=== PATIENT | female | born 1935 | race Caucasian/White ===

== ENCOUNTER 2020-06-14 07:30 | Outpatient (REF) | payer MEDICARE, OTHER, SELFPAY ==
[2020-06-14 11:19] LABS: MANUAL DIFF FLAG NO
[2020-06-14 11:42] LABS: Basophils Absolute Auto 0.1 X10*3/uL (0.0-0.2); Basophils Percent Auto 0.9 % (0-2); Eosinophils Absolute Auto 0.2 X10*3/uL (0.0-0.4); Eosinophils Percent Auto 2.6 % (0-4); Hematocrit 39.3 % (37-47); Hemoglobin 12.9 g/dl (12.0-16.0); Imm Gran Abs Auto 0.03 X10*3/uL (0.00-0.03); Imm Gran Pct Auto 0.5 % (0.0-0.4); Lymphocytes Absolute Auto 2.4 X10*3/uL (1.2-4.9); Lymphocytes Percent Auto 36.3 % (20-40); Mean Corpuscular HGB Conc 32.8 g/dl (31.0-35.0); Mean Corpuscular Hemoglobin 29.6 pg (27.0-33.0); Mean Corpuscular Volume 90.1 fL (80-98); Mean Platelet Volume 11.2 fL (9.4-12.3); Monocytes Absolute Auto 0.5 X10*3/uL (0.1-1.2); Monocytes Percent Auto 8.2 % (2-11); Neutrophils Absolute Auto 3.3 X10*3/uL (2.0-8.3); Neutrophils Percent Auto 51.5 % (45-73); Platelet Count 196 X10*3/uL (160-400); Red Blood Count 4.36 X10*6/uL (4.20-5.50); Red Cell Distribution Width 12.8 % (11.0-16.0); White Blood Count 6.5 X10*3/uL (4.8-10.8)
[2020-06-14 12:13] LABS: Alanine Aminotransferase 30 U/L (0-31); Albumin Level 4.4 g/dL (3.5-5.0); Alkaline Phosphatase 84 U/L (39-117); Anion Gap 12 (12-20); Aspartate Amino Transferase 23 U/L (5-31); Bilirubin Total 1.6 mg/dL (0.0-1.0); Blood Urea Nitrogen 13 mg/dL (9-16); Calcium 9.3 mg/dL (8.4-10.2); Carbon Dioxide 32 mmol/L (22-29); Chloride 96 mmol/L (96-108); Cholesterol 159 mg/dL; Estimated Glomerular Filt Rate > 60; Glucose Fasting 115 mg/dL (60-99); HDL Cholesterol 85 mg/dL; LDL Cholesterol Calculated 59 mg/dl; Potassium 3.7 mmol/L (3.3-5.1); Sodium 136 mmol/L (135-145); Total Protein 6.6 g/dL (6.5-8.0); Triglycerides 75 mg/dL
[2020-06-14 12:35] LABS: Thyroid Stimulating Hormone 1.54 uIU/mL (0.32-4.0); Vitamin D 25-OH Total 28.6 ng/mL (>30)
== END 2020-06-14 07:31 | disposition home or self-care (01) ==
LOC: HO.HMGCLDS 07:30
PROVIDERS: Visit Provider Internal Medicine
DX: I10 Essential (primary) hypertension (principal); E03.9 Hypothyroidism, unspecified; E78.00 Pure hypercholesterolemia, unspecified; E55.9 Vitamin D deficiency, unspecified; K22.719 Barrett's esophagus with dysplasia, unspecified
CPT/HCPCS: 36415; 80053; 80061; 82306; 84443; 85025

== ENCOUNTER 2021-07-16 07:43 | Outpatient (REF) | payer MEDICARE, OTHER, SELFPAY ==
[2021-07-16 11:40] LABS: MANUAL DIFF FLAG NO
[2021-07-16 11:44] LABS: Basophils Absolute Auto 0.1 X10*3/uL (0.0-0.2); Basophils Percent Auto 0.9 % (0-2); Eosinophils Absolute Auto 0.2 X10*3/uL (0.0-0.4); Eosinophils Percent Auto 3.5 % (0-4); Hematocrit 38.9 % (37.0-47.0); Hemoglobin 12.9 g/dl (12.0-16.0); Imm Gran Abs Auto 0.03 X10*3/uL (0.00-0.03); Imm Gran Pct Auto 0.5 % (0.0-0.4); Lymphocytes Absolute Auto 2.6 X10*3/uL (1.2-4.9); Lymphocytes Percent Auto 38.9 % (20-40); Mean Corpuscular HGB Conc 33.2 g/dl (31.0-35.0); Mean Corpuscular Hemoglobin 29.3 pg (27.0-33.0); Mean Corpuscular Volume 88.4 fL (80.0-98.0); Mean Platelet Volume 11.1 fL (9.4-12.3); Monocytes Absolute Auto 0.6 X10*3/uL (0.1-1.2); Monocytes Percent Auto 9.1 % (2-11); Neutrophils Absolute Auto 3.1 x10*3/uL (2.0-8.3); Neutrophils Percent Auto 47.1 % (45-73); Platelet Count 200 X10*3/uL (160-400); Red Cell Distribution Width 12.7 % (11.0-16.0); White Blood Count 6.6 X10*3/uL (4.8-10.8)
[2021-07-16 12:29] LABS: Alanine Aminotransferase 22 U/L (0-31); Albumin Level 4.5 g/dL (3.5-5.0); Alkaline Phosphatase 80 U/L (39-117); Anion Gap 10 (12-20); Aspartate Amino Transferase 20 U/L (5-31); Bilirubin Total 2.3 mg/dL (0.0-1.0); Blood Urea Nitrogen 17 mg/dL (9-16); Carbon Dioxide 31 mmol/L (22-29); Chloride 97 mmol/L (96-108); Cholesterol 152 mg/dL; Estimated Glomerular Filt Rate > 60; Glucose Fasting 106 mg/dL (60-99); HDL Cholesterol 82 mg/dL; LDL Cholesterol Calculated 55 mg/dl; Sodium 134 mmol/L (135-145); Total Protein 6.8 g/dL (6.5-8.0); Triglycerides 79 mg/dL; Vitamin D 25-OH Total 33.2 ng/mL (>30)
[2021-07-16 13:54] LABS: Thyroid Stimulating Hormone 0.88 uIU/mL (0.32-4.0)
== END 2021-07-16 07:44 | disposition home or self-care (01) ==
LOC: HO.HMGCLDS 07:43
PROVIDERS: PCP Internal Medicine; Visit Provider Internal Medicine
DX: I10 Essential (primary) hypertension (principal); E78.00 Pure hypercholesterolemia, unspecified; E03.9 Hypothyroidism, unspecified; E55.9 Vitamin D deficiency, unspecified
CPT/HCPCS: 36415; 80053; 80061; 82306; 84443; 85025

== ENCOUNTER 2022-05-08 08:24 | Outpatient (REF) | payer MEDICARE, SELFPAY ==
[2022-05-08 11:24] LABS: MANUAL DIFF FLAG NO
[2022-05-08 11:40] LABS: Basophils Absolute Auto 0.1 X10*3/uL (0.0-0.2); Eosinophils Absolute Auto 0.1 X10*3/uL (0.0-0.4); Eosinophils Percent Auto 2.3 % (0-4); Hematocrit 40.1 % (37.0-47.0); Hemoglobin 13.5 g/dl (12.0-16.0); Imm Gran Abs Auto 0.01 X10*3/uL (0.00-0.03); Imm Gran Pct Auto 0.2 % (0.0-0.4); Lymphocytes Absolute Auto 2.1 X10*3/uL (1.2-4.9); Lymphocytes Percent Auto 33.5 % (20-40); Mean Corpuscular HGB Conc 33.7 g/dl (31.0-35.0); Mean Corpuscular Hemoglobin 29.4 pg (27.0-33.0); Mean Corpuscular Volume 87.4 fL (80.0-98.0); Mean Platelet Volume 10.8 fL (9.4-12.3); Monocytes Absolute Auto 0.6 X10*3/uL (0.1-1.2); Monocytes Percent Auto 9.6 % (2-11); Neutrophils Absolute Auto 3.3 x10*3/uL (2.0-8.3); Neutrophils Percent Auto 53.4 % (45-73); Platelet Count 207 X10*3/uL (160-400); Red Blood Count 4.59 X10*6/uL (4.20-5.50); Red Cell Distribution Width 12.7 % (11.0-16.0); White Blood Count 6.2 X10*3/uL (4.8-10.8)
[2022-05-08 12:23] LABS: Alanine Aminotransferase 23 U/L (0-31); Albumin Level 4.3 g/dL (3.5-5.0); Alkaline Phosphatase 84 U/L (39-117); Anion Gap 12 (12-20); Aspartate Amino Transferase 21 U/L (5-31); Bilirubin Total 2.3 mg/dL (0.0-1.0); Blood Urea Nitrogen 15 mg/dL (9-16); Calcium 9.5 mg/dL (8.4-10.2); Carbon Dioxide 30 mmol/L (22-29); Chloride 95 mmol/L (96-108); Cholesterol 158 mg/dL; Estimated Glomerular Filt Rate > 60; Glucose Fasting 116 mg/dL (60-99); HDL Cholesterol 81 mg/dL; LDL Cholesterol Calculated 63 mg/dl; Potassium 4.1 mmol/L (3.3-5.1); Sodium 133 mmol/L (135-145); Total Protein 6.5 g/dL (6.5-8.0); Triglycerides 70 mg/dL
[2022-05-08 12:28] LABS: Thyroid Stimulating Hormone 0.91 uIU/mL (0.32-4.0)
== END 2022-05-08 08:25 | disposition home or self-care (01) ==
LOC: HO.HMGCLDS 08:24
PROVIDERS: Visit Provider Internal Medicine
DX: K58.9 Irritable bowel syndrome, unspecified (principal); I10 Essential (primary) hypertension; E03.9 Hypothyroidism, unspecified; K22.719 Barrett's esophagus with dysplasia, unspecified; E78.00 Pure hypercholesterolemia, unspecified; E55.9 Vitamin D deficiency, unspecified; F41.9 Anxiety disorder, unspecified
CPT/HCPCS: 36415; 80053; 80061; 82306; 84443; 85025

== ENCOUNTER → 2022-09-02 14:45 | Outpatient (BNVA) | payer MEDICARE, SELFPAY | PROVIDERS: Visit Provider Internal Medicine Cardiovascular Disease | DX: R00.2 Palpitations (principal) | CPT/HCPCS: 93005; 99202 ==

== ENCOUNTER → 2022-09-29 09:46 | Outpatient (REF) | payer MEDICARE, SELFPAY ==
--- NOTE | 2022-09-29 09:50 | CA_ITS ---
Transthoracic Echocardiogram Patient (Last, First, Middle): Francy Shields A Gender: Female Date of : 1935 Age: 86 Procedure Date: 09/29/2022 Procedure Type: Transthoracic Echocardiogram Location: OP Height: 165.1 cm Weight: 68.04 kg BSA: 1.75 m2 Heart Rate: bpm BP: 130 / 76 mmHg Priming Mixture Carrier: SOM Referring MD: Lloyd Chacon MD Technical Lead: Lloyd Chacon MD Symptoms: R00.2 - Palpitations Study Quality: Adequate Conclusions: - Normal left ventricular size, thickness, systolic function, and wall motion. The visually estimated ejection fraction is between 65-70%. - E/E prime ratio is >15, consistent with elevated filling pressures. - Normal right ventricular cavity size and systolic function. - The left atrium is mildly dilated. The right atrium is normal in size. - Mild pulmonary hypertension is present. Findings Left Ventricle Normal left ventricular size, thickness, systolic function, and wall motion. The visually estimated ejection fraction is between 65-70%. Abnormal diastolic function is noted. Spectral Doppler is indicative of a pseudonormal filling pattern. E/E prime ratio is >15, consistent with elevated filling pressures. There is mild septal asymmetric hypertrophy. Right Ventricle Normal right ventricular cavity size and systolic function. Atria The left atrium is mildly dilated. The right atrium is normal in size. Aortic Valve Normal aortic valve structure and function. There is no aortic valve stenosis. There is no aortic valve regurgitation. Mitral Valve The mitral valve appears normal. There is trace mitral valve regurgitation. There is no mitral valve stenosis. Pulmonic Valve The pulmonic valve is likely normal. Tricuspid Valve Normal tricuspid valve structure. There is mild to moderate tricuspid valve regurgitation. The right ventricular systolic pressure is 44 mmHg. Normal right atrial pressure. Mild pulmonary hypertension is present. Great Vessels All visible segments of the aorta are normal in size. The visualized portions of the pulmonary artery and branches are normal. Venous The inferior vena cava is normal in size and collapses greater than 50% with inspiration. Pericardium/Pleural There is no evidence of pericardial effusion. Measurements 2D Linear Measurements IVSd: 0.88 0.6-0.9/0.6-1.0 cm LVIDd: 3.95 3.9-5.3/4.2-5.9 cm LVIDd Index: 2.26 2.4-3.2/2.2-3.1 cm/m2 LVIDs: 2.55 2.0-3.6 cm LVPWd: 0.92 0.7-1.1 cm LA Diam: 3.40 2.7-3.8/3.0-4.0 cm LAIDs Index: 1.94 1.5-2.3 cm/m2 LV Mass: 133.31 67-162/88-224 g LV Mass Index: 76.18 43-95/49-115 g/m2 LVOT Diam: 2.00 3.0+(-)1.3 cm 2D Systolic Function EF 4C: 69.90 >55% EF 2C: 67.70 >55% EF BiP: 68.20 >55% Mitral Valve MV Pk E: 1.04 MV PK A: 1.01 MV Decel Time: 207.00 E/A: 1.00 E'Lateral: 5.87 E'Medial: 5.66 E/E' Med: 18.40 E/E' Lat: 17.70 PHT: 61.00 MVA PHT: 3.61 Decel Newton: 5.03 Aortic Valve AoV Pk Cory: 1.36 AoV Mn Cory: 0.99 AoV VTI: 0.35 AoV Pk Grad: 7.00 Aov Mn Grad: 4.00 ROBERT Cont.VTI: 2.62 LVOT LVOT Pk Cory: 1.31 LVOT Mn Cory: 0.81 LVOT VTI: 0.29 LVOT Pk Grad: 7.00 LVOT Mn Grad: 3.00 LVOT Diam: 2.00 LVOT Area: 3.14 Diastolic Function MV Pk E: 1.04 MV Pk A: 1.01 E/A: 1.00 E'Medial: 5.66 E/E' Med: 18.40 E' Laterial: 5.87 E/E' Lat: 17.70 Right Ventricle TAPSE (mm): 18.30 TVS' Cory: 11.50 Tricuspid Valve TR Pk Cory: 3.22 TR Pk Grad: 41.00 RA Press: 3.00 RVSP: 44.00 Great Vessels Aorta Sinus of Valsalva: 3.51 2.0-3.[address] [place]: 2.22 1.7-3.4 cm Ao Asc: 3.10 2.1-3.4 cm Updated in Other Vendor System with Status of Final Lloyd Chacon MD electronically signed on 09/29/2022 9:59:13 PM with status of Final
--- NOTE | 2022-09-29 09:50 | HM_ITS ---
Cardiac event monitor Indication Palpitations Technique: Patient was hooked up to cardiac event monitor on 09/29/2022 for total period of 30 days. Compliance rate was only 25%, with total monitoring available only for 6.5 days. Findings: Baseline was normal sinus rhythm. No significant pauses noted. Rare supraventricular ectopy noted. Patient reported to events on the marker but without associated symptoms, correlating with sinus rhythm. Conclusion: 1. Baseline was normal sinus rhythm with no pauses with overall compliance rate on the low side 2. No significant arrhythmias detected 3. Patient reported to events correlated with sinus rhythm MTDD
== END ==
LOC: HO.CARD 09:46
PROVIDERS: Visit Provider Internal Medicine Cardiovascular Disease
DX: R00.2 Palpitations (principal)
CPT/HCPCS: 93270; 93306

== ENCOUNTER → 2022-09-29 09:50 | Outpatient (BNV) | payer MEDICARE, SELFPAY | PROVIDERS: Visit Provider Internal Medicine Cardiovascular Disease | DX: I47.1 Supraventricular tachycardia (principal) | CPT/HCPCS: 93272; 93306 ==

== ENCOUNTER 2022-12-03 11:21 | Outpatient (AMB) | payer MEDICARE, SELFPAY ==
--- NOTE | 2022-12-03 12:57 | AM.OFFWIN_ITS ---
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 Patient Tobacco Use Status: Never used Tobacco Allergies No Known Allergies [No Known Allergies*] Allergy (Verified 12/03/22 13:01) Do you need a note to return to daycare/school/sports/work: No HPI HPI Comments History of Present Illness Details 87-year-old with ear fullness and decrea sed hearing on the right side. Denies other symptoms [facility] Surgical History (Updated 09/02/22 @ 15:04 by CASSI Ortiz) History of colon resection History of hysterectomy History of modified radical mastectomy of left breast Family History (Updated 09/02/22 @ 15:04 by CASSI Ortiz) Mother No problems noted. Father No problems noted. Social History (Updated 09/02/22 @ 15:05 by CASSI Ortiz) Alcohol intake: current Alcohol intake frequency: a few times a month Alcohol type: wine Patient Tobacco Use Status: Never used Tobacco Review of Systems Const All systems reviewed & are unremarkable except as noted in HPI and below ENT Details: Right ear fullness Physical Exam Vital Signs: Last Vital Signs Pulse 64 12/03/22 12:59 BP 150/70 H 12/03/22 12:59 Pulse Ox 98 12/03/22 12:59 Oxygen Delivery Method Room Air 12/03/22 12:59 BMI result Body Mass Index 22.9 HEENT Other: Unable to visualize TM on the right side cerumen impaction. TM on the left visualized no tragal tenderness Assessment & Plan Assessment & Plan (1) Cerumen impaction: Code(s): H61.20 - Impacted cerumen, unspecified ear Qualifiers: Laterality: right Qualified Code(s): H61.21 - Impacted cerumen, right ear Plan: Signs and symptoms consistent cerumen impaction will flushed and reassess Reassessment patient with improvement in symptoms he hears re-evaluated shows TM intact. Discharge instructions, follow up and treatment are discussed with patient in my usual fashion. Alternatives in treatment are also discussed. The patient will return for worsening symptoms or as needed. Advised that any labs/imaging ordered will be followed up on and contact made if further treatment needed. Counseled that patient's condition may require further evaluation and/or treatment. Symptoms of concern for worsening disorder discussed in detail in my customary manner. Patient does verbalize understanding of the plan, there are no apparent barriers to communication. The patient is given the opportunity to ask questions and have them answered to his/her satisfaction Patient Instructions: You were seen an evaluated in the urgent care for your ear blockage. Your ears were flushed and wax was manually removed. You may experience fullness for the next 24-48 hours. You may trail an anti-histamine such as benadry, ceterizine (Zyrtec), or claritin. Over the counter ear drops can be purchased to help soften your ear wax. You should return to urgent care or the emergency department if you experience any new or worsening symptoms such as worsen pain, fever, hearing loss or any concerning symptoms not mentioned above. Coding Level of Care Code New Pt Level 4 (74442) Diagnoses Impacted cerumen of right ear H61.21 Laterality: right
[2022-12-03 12:59] VITALS: BP 150/70; PULSE 64; O2SAT 98; BMI 22.9
== END 2022-12-03 13:34 | disposition home or self-care (01) ==
PROVIDERS: Visit Provider Physician Assistant
DX: H61.21 Impacted cerumen, right ear (principal)
CPT/HCPCS: 99204

== ENCOUNTER 2022-12-09 10:14 | Outpatient (AMB) | payer MEDICARE, SELFPAY ==
[2022-12-09 10:16] VITALS: BP 160/82; PULSE 76; BMI 24.5
--- NOTE | 2022-12-09 10:16 | MHC.OFFVIS ---
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 She has been experiencing palpitations for few months but there were infrequent and happening 1 time a month. We will last for short period but recently she had an episode which was for approximately 5-6 hours. She felt her heart was racing and she was also feeling pulsations in her neck. She has no chest pain or shortness of breath. She has background of hypertension and hypothyroidism. Her blood pressure in the office is elevated but she is saying that her blood pressure at home is usually low. I have advised her to check her blood pressure and keep a log. Today she returns for follow-up. Again her blood pressure in the office is elevated. Her home readings are anywhere from 110 to 120s in the afternoon by her report. She is taking metoprolol succinate 100 mg daily and hydrochlorothiazide 50 mg daily. She is denying any palpitations. Cardiac event monitor did not show any significant arrhythmia. [facility] Surgical History History of colon resection History of hysterectomy History of modified radical mastectomy of left breast Family History Mother No problems noted. Father No problems noted. Social History Alcohol intake: current Alcohol intake frequency: a few times a month Alcohol type: wine Patient Tobacco Use Status: Never used Tobacco Review of Systems ENT Reports dizziness Card Denies chest pain, Denies chest pain at rest, Denies chest pain with activity, Denies rapid heart rate, Denies pedal edema, Denies edema, Denies leg edema, Denies lightheadedness, Denies palpitations, Denies dyspnea, Denies dyspnea on exertion and Denies orthopnea Resp Denies cough, Denies dyspnea and Denies dyspnea on exertion GI Denies hematochezia and Denies change in stool character Musc Denies abnormal gait, Reports limited range of motion, Reports muscle cramps, Denies muscle weakness, Denies numbness, Denies radiating pain into limb, Denies stiffness and Denies tingling Neuro Denies abnormal gait, Reports dizziness, Denies numbness and Denies tingling Endo Denies palpitations Physical Exam Vital Signs: Last Vital Signs Pulse 76 12/09/22 10:16 BP 160/82 H 12/09/22 10:16 BMI result Body Mass Index 24.5 GENERAL APPEARANCE: in no acute distress, pleasant. NECK: no carotid bruit, no jugular venous distention. SKIN: no suspicious lesions, warm and dry. HEART: no murmurs, regular rate and rhythm. LUNGS: clear to auscultation bilaterally. ABDOMEN: soft, nontender. EXTREMITIES: no edema. PERIPHERAL PULSES: equal. NEUROLOGIC: No gross deficits, AAO X 3 Assessment & Plan Assessment & Plan (1) Essential hypertension: Code(s): I10 - Essential (primary) hypertension (2) Palpitations: Code(s): R00.2 - Palpitations Plan 87-year-old female who is here for follow-up. She has background history of palpitations. She had cardiac event monitor which did not show any arrhythmia. Echocardiography has not shown any significant valvular disease or cardiomyopathy. Clinically she appears to be stable. Denying any chest pain or shortness of breath. Again blood pressure in the office elevated. She is saying that she has white coat syndrome. She was advised previously to keep a blood pressure log and call us. We have checked her blood pressure with our device and her home machine and the blood pressure readings are quite comparable. She is going to keep a log and call us in 1 week. If blood pressures more than 140s persistently I would recommend adding amlodipine 2.5 mg daily. Thank you for allowing me to participate in the care of your patient. Please feel free to contact me if you have any questions. Coding Level of Care Code Est Pt Level 3 (56392) Diagnoses Essential hypertension I10 Palpitations R00.2
== END 2022-12-09 10:41 | disposition home or self-care (01) ==
PROVIDERS: PCP Internal Medicine; Visit Provider Internal Medicine Cardiovascular Disease
DX: I10 Essential (primary) hypertension (principal); R00.2 Palpitations
CPT/HCPCS: 99213

== ENCOUNTER → 2022-12-09 10:14 | Outpatient (BNVA) | payer MEDICARE, SELFPAY | PROVIDERS: PCP Internal Medicine; Visit Provider Internal Medicine Cardiovascular Disease | DX: R00.2 Palpitations (principal); I10 Essential (primary) hypertension; E03.9 Hypothyroidism, unspecified | CPT/HCPCS: 99212 ==

== ENCOUNTER 2023-01-07 08:50 | Outpatient (REF) | payer MEDICARE, SELFPAY ==
[2023-01-07 11:37] LABS: Estimated Average Glucose 126 mg/dL
[2023-01-07 11:55] LABS: Appearance Urine Cloudy; Color Urine Dark Yellow; Glucose Urine UA Negative (Negative); Leukocyte Esterase Urine Large (3+) (Negative); Nitrite Urine Negative (Negative); PH 6.5 (5.0-9.0); UMIC TRIGGER UA YES; Urine Blood Small (1+) (Negative); Urine Ketones Negative (Negative); Urine Protein Negative (Neg-Trace)
[2023-01-07 12:10] LABS: Bacteria Urine Trace (None Seen); Hyaline Casts Urine 0-2 /LPF (0-2); WBC Urine 21-50 /HPF (0-5)
[2023-01-07 12:11] LABS: Alanine Aminotransferase 21 U/L (0-31); Albumin Level 4.2 g/dL (3.5-5.0); Alkaline Phosphatase 86 U/L (39-117); Anion Gap 9 (12-20); Aspartate Amino Transferase 21 U/L (5-31); Bilirubin Total 1.8 mg/dL (0.0-1.0); Blood Urea Nitrogen 12 mg/dL (9-16); Calcium 10.6 mg/dL (8.4-10.2); Carbon Dioxide 32 mmol/L (22-29); Chloride 98 mmol/L (96-108); Estimated Glomerular Filt Rate > 60; Glucose Fasting 120 mg/dL (60-99); Potassium 4.2 mmol/L (3.3-5.1); Sodium 135 mmol/L (135-145); Total Protein 6.9 g/dL (6.5-8.0)
[2023-01-07 12:32] LABS: Microalbum/Creatinine Ratio Ur 12.2 ug/mg cr (<30)
== END 2023-01-07 08:51 | disposition home or self-care (01) ==
LOC: HO.HMGCLDS 08:50
PROVIDERS: PCP Internal Medicine; Visit Provider Internal Medicine
DX: I10 Essential (primary) hypertension (principal); E03.9 Hypothyroidism, unspecified; K22.719 Barrett's esophagus with dysplasia, unspecified; E78.00 Pure hypercholesterolemia, unspecified; R73.09 Other abnormal glucose; E55.9 Vitamin D deficiency, unspecified; F41.9 Anxiety disorder, unspecified
CPT/HCPCS: 36415; 80053; 81001; 82043; 82570; 83036

== ENCOUNTER 2023-02-09 14:33 | Outpatient (AMB) | payer MEDICARE, SELFPAY ==
[2023-02-09 14:35] VITALS: BP 140/82; PULSE 67; BMI 24.3
--- NOTE | 2023-02-09 14:35 | MHC.OFFVIS ---
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 Today she reports she still gets heart palpitations at times. She will feel that her heart rate speeds up and can last for a few minutes before goes back to normal. She has no concerning symptoms along with this however it does cause her some concern. She has not had chest discomfort at rest or with activity. She denies having shortness of breath, presyncope, syncope, falls. No PND, orthopnea or edema. She takes her medications as directed. She reports good activity tolerance. [facility] Surgical History History of colon resection History of hysterectomy History of modified radical mastectomy of left breast Family History Mother No problems noted. Father No problems noted. Social History Alcohol intake: current Alcohol intake frequency: a few times a month Alcohol type: wine Patient Tobacco Use Status: Never used Tobacco Review of Systems Const All systems reviewed & are unremarkable except as noted in HPI and below ENT Denies dizziness Card Denies chest pain, Denies chest pain at rest, Denies chest pain with activity, Denies rapid heart rate, Denies pedal edema, Denies edema, Denies leg edema, Denies lightheadedness, Reports palpitations, Denies dyspnea, Denies dyspnea on exertion and Denies orthopnea Resp Denies cough, Denies dyspnea and Denies dyspnea on exertion GI Denies hematochezia and Denies change in stool character Musc Denies abnormal gait, Denies limited range of motion, Denies muscle cramps, Denies muscle weakness, Denies numbness, Denies radiating pain into limb, Denies stiffness and Denies tingling Neuro Denies abnormal gait, Denies dizziness, Denies numbness and Denies tingling Endo Reports palpitations Physical Exam Vital Signs: Last Vital Signs Pulse 67 02/09/23 14:35 BP 140/82 H 02/09/23 14:35 BMI result Body Mass Index 24.3 Const General: cooperative, healthy appearing, comfortable and no acute distress Orientation/consciousness: patient oriented x3 Neck Neck: Yes normal visual inspection Resp Effort & Inspection: normal respiratory effort Auscultation: clear to auscultation bilaterally, no rales, no rhonchi and no wheezes Cardio Jugular venous distension: no JVD Rate: regular rate Rhythm: regular rhythm Heart sounds: S1 normal heart sound present, S2 normal heart sound present, no murmurs and no rubs Neuro General: patient oriented x3 Extrem General: Yes normal to inspection Psych Appearance: grossly normal Mental Status: mental status grossly normal Speech and movement: Normal speech and movement present Assessment & Plan Assessment & Plan (1) Palpitations: Code(s): R00.2 - Palpitations Plan: Reports of heart palpitations which feels like her heart is going fast for a few minutes. No associated symptoms. Cardiac event monitor done on 09/2022 showing sinus rhythm with no significant arrhythmia, rare SVE noted, symptoms correlated with sinus rhythm. Echocardiogram done 09/29/2022 showed EF 65-70%, mild pulmonary hypertension. She continues to report some occasional heart palpitations. She says it occurs once or twice a month. Will have her continue to monitor symptoms and call this office if she has increasing amounts. Instructed to seek emergency care if she ever has any sustained rapid heart palpitations or episodes of lightheadedness, presyncope, syncope. Continue on current meds including metoprolol. Cardiology follow-up in 6 months, sooner if needed. Told her that if she is feeling well that she could cancel that appointment in be seen as needed. (2) Essential hypertension: Code(s): I10 - Essential (primary) hypertension Plan: Patient with history of hypertension. She also reports white coat syndrome. Home blood pressures reviewed and show good blood pressure control. She tells me she had had her cuff compared to office blood pressure in the past. Home readings currently 110-127 systolic over 60-70 diastolic. Office blood pressure today mildly elevated at 140/82. She is on hydrochlorothiazide and metoprolol. No med changes made at present Coding Level of Care Code Est Pt Level 3 (70471) Diagnoses Palpitations R00.2 Essential hypertension I10 Time Spent (min) 24
== END 2023-02-09 15:15 | disposition home or self-care (01) ==
PROVIDERS: PCP Internal Medicine; Visit Provider Nurse Practitioner Family
DX: R00.2 Palpitations (principal); I10 Essential (primary) hypertension
CPT/HCPCS: 99213

== ENCOUNTER → 2023-02-09 14:33 | Outpatient (BNVA) | payer MEDICARE, SELFPAY | PROVIDERS: PCP Internal Medicine; Visit Provider Nurse Practitioner Family | DX: R00.2 Palpitations (principal); I10 Essential (primary) hypertension | CPT/HCPCS: 99212 ==

== ENCOUNTER 2023-10-26 08:25 | Outpatient (REF) | payer MEDICARE, SELFPAY ==
[2023-10-26 09:55] LABS: MANUAL DIFF FLAG NO
[2023-10-26 10:08] LABS: Basophils Absolute Auto 0.1 X10*3/uL (0.0-0.2); Basophils Percent Auto 0.7 % (0-2); Eosinophils Absolute Auto 0.2 X10*3/uL (0.0-0.4); Hematocrit 41.4 % (37.0-47.0); Hemoglobin 14.1 g/dl (12.0-16.0); Imm Gran Abs Auto 0.01 X10*3/uL (0.00-0.03); Imm Gran Pct Auto 0.1 % (0.0-0.4); Lymphocytes Absolute Auto 2.8 X10*3/uL (1.2-4.9); Lymphocytes Percent Auto 37.4 % (20-40); Mean Corpuscular HGB Conc 34.1 g/dl (31.0-35.0); Mean Corpuscular Hemoglobin 29.7 pg (27.0-33.0); Mean Corpuscular Volume 87.3 fL (80.0-98.0); Mean Platelet Volume 11.1 fL (9.4-12.3); Monocytes Absolute Auto 0.6 X10*3/uL (0.1-1.2); Monocytes Percent Auto 8.3 % (2-11); Neutrophils Absolute Auto 3.8 x10*3/uL (2.0-8.3); Neutrophils Percent Auto 51.5 % (45-73); Platelet Count 213 X10*3/uL (160-400); Red Blood Count 4.74 X10*6/uL (4.20-5.50); White Blood Count 7.4 X10*3/uL (4.8-10.8)
[2023-10-26 10:38] LABS: Alanine Aminotransferase 24 U/L (0-31); Albumin Level 4.4 g/dL (3.5-5.0); Alkaline Phosphatase 97 U/L (39-117); Anion Gap 11 (12-20); Aspartate Amino Transferase 22 U/L (5-31); Bilirubin Total 1.9 mg/dL (0.0-1.0); Blood Urea Nitrogen 14 mg/dL (9-16); Calcium 10.8 mg/dL (8.4-10.2); Carbon Dioxide 31 mmol/L (22-29); Chloride 98 mmol/L (96-108); Cholesterol 155 mg/dL (<200); Estimated Glomerular Filt Rate > 60; Glucose Fasting 124 mg/dL (60-99); HDL Cholesterol 82 mg/dL (>40); LDL Cholesterol Calculated 57 mg/dL (<100); Potassium 4.2 mmol/L (3.3-5.1); Sodium 136 mmol/L (135-145); Total Protein 7.1 g/dL (6.5-8.0); Triglycerides 83 mg/dL (<150)
[2023-10-26 10:56] LABS: Thyroid Stimulating Hormone 0.96 uIU/mL (0.32-4.0); Vitamin D 25-OH Total 40.9 ng/mL (>30)
== END 2023-10-26 08:26 | disposition home or self-care (01) ==
LOC: HO.HMGCLDS 08:25
PROVIDERS: PCP Internal Medicine; Visit Provider Internal Medicine
DX: I10 Essential (primary) hypertension (principal); E03.9 Hypothyroidism, unspecified; K22.719 Barrett's esophagus with dysplasia, unspecified; E78.00 Pure hypercholesterolemia, unspecified; E55.9 Vitamin D deficiency, unspecified
CPT/HCPCS: 36415; 80053; 80061; 82306; 84443; 85025

== ENCOUNTER 2023-11-19 11:42 | Emergency (ER) | payer MEDICARE, SELFPAY ==
--- NOTE | ~2023-11-19 | XR_ITS ---
EXAMINATION: XR FEMUR, RIGHT CLINICAL INFORMATION: Posterior right thigh pain COMPARISON: None available. TECHNIQUE: AP and lateral views of the right femur were obtained. FINDINGS: BONES: Bony structures are intact. There is no focal bone destruction or periosteal reaction seen. JOINTS: Alignment of joints is normal. SOFT TISSUE: Soft tissue is normal. No radiopaque foreign body or abnormal air collection is seen. XR/XR femur RT 2V IMPRESSION: 1. Normal x-rays of right femur. No fracture or dislocation or signs of osteomyelitis are found. Electronically signed by: Aurora Cain MD 11/19/2023 02:26 PM EDT
--- NOTE | ~2023-11-19 | US_ITS ---
EXAMINATION: US TRIPLEX LOWER EXTREMITY, RIGHT CLINICAL INFORMATION: Right posterior thigh pain COMPARISON: None available. TECHNIQUE: Color-flow triplex imaging with spectral analysis and compression Doppler were performed on the right lower extremity. FINDINGS: Respiratory variation, normal compression and augmented flow are noted throughout the right lower extremity. The visualized common femoral vein, superficial femoral vein, profunda femoral vein, popliteal vein and midcalf peroneal and posterior tibial venous segments show no evidence of deep venous thrombosis. There is no Bautista's cyst. US/US venous duplex LE RT IMPRESSION: No evidence of deep venous thrombosis involving the right lower extremity. Electronically signed by: Phil Gee MD 11/19/2023 03:08 PM EDT RP
[2023-11-19 11:47] VITALS: BP 165/86; PULSE 73; O2SAT 98
[2023-11-19 11:56] VITALS: BP 175/79; PULSE 67; RESP 16; TEMP 36; O2SAT 98; BMI 25.7
[2023-11-19] MEDS: Cyclobenzaprine HCl 10 MG TABLET PO (12:56)
[2023-11-19] MEDS: Ketorolac Tromethamine 30 MG/ML VIAL IM (12:56)
--- NOTE | 2023-11-19 13:52 | ED_ITS ---
HPI - General Adult General Chief complaint: Extremity Injury, Lower Stated complaint: fell, R Leg pain rad from back sudden Time Seen by Provider: 11/19/23 12:37 Source: patient Mode of arrival: ambulatory Limitations: no limitations History of Present Illness ED Provider: Dhaval Mckeon PA-C HPI narrative: 88 yold female with pmh of HTN presents to the ED for right posterior thigh pain that occurred this morning. Patient states she was sitting down and when she got up she felt sudden pain in right posterior thigh hamstring area. Patient denies falling to the ground, hearing a pop or crack and right lower extremity. Patient states pain ever since. Patient denies any chest pain or shortness of breath. Related Data Home Medications ?Medication ?Instructions ?Recorded ?Confirmed atorvastatin 10 mg tablet 10 mg PO DAILY 09/02/22 02/09/23 hydrochlorothiazide 50 mg tablet 50 mg PO DAILY 09/02/22 02/09/23 levothyroxine 50 mcg tablet 50 mcg PO DAILY 09/02/22 02/09/23 metoprolol succinate 100 mg 100 mg PO DAILY 09/02/22 02/09/23 tablet,extended release 24 hr pantoprazole 40 mg tablet,delayed 40 mg PO DAILY 09/02/22 02/09/23 release Previous Rx's ?Medication ?Instructions ?Recorded naproxen 500 mg tablet 500 mg PO BID PRN pain 7 days #14 11/19/23 tabs oxycodone 5 mg capsule 5 mg PO Q8H PRN pain 3 days #9 caps 11/19/23 Allergies Allergy/AdvReac Type Severity Reaction Status Date / Time No Known Allergies Allergy Verified 11/19/23 11:59 [No Known Allergies*] Review of Systems 2 Review of Systems: Right posterior thigh pain Yes all other systems are reviewed and are negative [facility] Past Medical History Surgical History History of colon resection History of hysterectomy History of modified radical mastectomy of left breast Family History Family History Mother No problems noted. Father No problems noted. Social History Social History Alcohol intake: current Alcohol intake frequency: a few times a month Alcohol type: wine Patient Tobacco Use Status: Never used Tobacco Advance Directives: Yes Advance Directives Information Provided: Yes Advance Directives on File: No Physical Exam ED Vital Signs: Vital Signs - 24 hr 11/19/23 11:56 11/19/23 16:55 11/19/23 17:18 Temperature 96.8 F 97.8 F 97.8 F Pulse Rate 67 68 68 Respiratory Rate 16 16 16 Blood Pressure 175/79 H 145/60 H 145/60 H Pulse Oximetry 98 97 97 Oxygen Delivery Method Room Air Room Air Room Air BMI result Body Mass Index 25.7 Const General: cooperative, healthy appearing, comfortable, no acute distress, well developed, alert, awake and Physically active Orientation/consciousness: patient oriented x3 [facility] Head: Yes normal to inspection, Yes No palpable skull fracture present, Yes normocephalic and Yes atraumatic Eyes General: appearance normal, both eyes and all related structures Neck Neck: Yes normal visual inspection, Yes full ROM, Yes no lymphadenopathy, Yes no meningeal signs, Yes trachea midline, Yes supple, No anterior neck swelling and No tender Chest Chest palpation & inspection: normal inspection of the chest and normal palpation of entire chest wall Resp Effort & Inspection: normal respiratory effort and able to speak in complete sentences Auscultation: clear to auscultation bilaterally Cardio Jugular venous distension: no JVD Heart sounds: S1 normal heart sound present and S2 normal heart sound present GI Inspection: Yes normal to inspection Palpation (GI): Soft to palpation, not firm, nontender, no guarding and not rigid General: No CVA tenderness and Yes no CVA tenderness Back/Spine/Pelvis Back: no CVA tenderness, No CVA tenderness and No back tenderness Skin General skin exam: no rashes or lesions noted, elasticity normal and turgor normal Neuro General: patient oriented x3, gait normal, tone normal, moves all extremities, Normal light touch and pain sensation, no meningeal signs, no focal motor deficits, CN's II-XI intact bilaterally and normal sensation to monofilament Extrem General: Yes normal to inspection, Yes full ROM and Yes capillary refill normal Knee images: 2 1. Positive for tenderness on palpation. Negative for palpable mass, crepitus, deformity, erythema, hotness, coldness, or red streaks. Rest of extremity normal. Vascular neuro exam intact. Motor exam intact but with pain Psych Appearance: grossly normal, well kempt and not disheveled Medications Administered Discontinued Medications Generic Name Dose Route Start Last Admin Trade Name Nicky PRN Reason Stop Dose Admin Cyclobenzaprine HCl 10 mg 11/19/23 12:50 11/19/23 12:56 Cyclobenzaprine Hcl 10 Mg Tablet PO 11/19/23 12:51 10 mg ONCE ONE Administration Ketorolac Tromethamine 30 mg 11/19/23 12:50 11/19/23 12:56 Ketorolac Tromethamine 30 Mg/Ml Vial IM 11/19/23 12:51 30 mg ONCE ONE Administration Oxycodone HCl 5 mg 11/19/23 14:26 11/19/23 14:29 Oxycodone Hcl Immed Release 5 Mg Tablet PO 11/19/23 14:27 5 mg ONCE ONE Administration Medical Decision Making Medical Decision Making [facility] Narrative: 88-year-old female presents to ED for right posterior thigh pain after standing up suddenly and felt pain. Patient denies any popping or cracking sound. Her/pain on range of motion of right posterior thigh. Ultrasound x-ray ordered. Pain med given. 4:31pm: Patient pain resolved after oxycodone. X-ray negative for fracture. Ultrasound negative for DVT. Patient has no dip in posterior thigh and has complete range of motion of right lower extremity without any pain. Informed to follow up with primary care provider. Patient has appointment on Wednesday. Patient informed if pain return or consistent may need MRI for primary care provider. Not suspecting osteomyelitis, compartment syndrome, necrotizing fasciitis, arterial occlusion, DVT, or fracture. Patient and family explained worrisome signs informed to return to the ED immediately Differential Diagnosis Differential Diagnoses: The differential diagnosis associated with the presentation includes (Hamstring injury, DVT, fracture femur) Admission/Observation Consideration of admission/observation: Escalation of care including admission/observation considered Independent Interpretation I performed an independent interpretation of an: Plain X-Ray Radiology Impression Discussion of test interpretation with radiology: I have reviewed the radiologist's reading. Independent Historian Clinical information obtained from an independent historian. History obtained from or confirmed by: Other (Patient) External Record Review External record reviewed: Other (prior visit) Prescription Management I considered prescription management with: Pain Medication Discharge Plan Discharge Clinical Impression: Pain in right thigh Patient Disposition: Home, Self-Care Instructions: Leg Pain (ED) Additional Instructions: Recommend follow-up with primary care provider. If Pain is persistent or does not improve primary care provider she shoulder order MRI to evaluate for possible hamstring injury. Return to the ED for any swelling, redness, bluish black discoloration, numbness/tingling, fever, chills, severe pain, calf pain, chest pain, shortness of breath, coughing up blood, or any other concerning symptoms. US/US venous duplex LE RT IMPRESSION: No evidence of deep venous thrombosis involving the right lower extremity. Electronically signed by: Phil Gee MD 11/19/2023 03:08 PM EDT RP XR/XR femur RT 2V IMPRESSION: 1. Normal x-rays of right femur. No fracture or dislocation or signs of osteomyelitis are found. Electronically signed by: Aurora Cain MD 11/19/2023 02:26 PM EDT RP Prescriptions: New oxycodone 5 mg capsule 5 mg PO Q8H PRN (Reason: pain) 3 Days Qty: 9 0RF Rx Instructions: Partial Fill upon patient request. naproxen 500 mg tablet 500 mg PO BID PRN (Reason: pain) 7 Days Qty: 14 0RF No Action pantoprazole 40 mg tablet,delayed release (DR/EC) 40 mg PO DAILY levothyroxine 50 mcg tablet 50 mcg PO DAILY metoprolol succinate 100 mg tablet extended release 24 hr 100 mg PO DAILY atorvastatin 10 mg tablet 10 mg PO DAILY hydrochlorothiazide 50 mg tablet 50 mg PO DAILY Interventions: ED Discharge Assessment Last Done: 11/19/23 17:18 Discharge Date/Time: 11/19/23 17:19 Print Language: Lao
[2023-11-19] MEDS: oxyCODONE HCl Immed Release 5 MG TABLET PO (14:29)
[2023-11-19 16:55] VITALS: BP 145/60; PULSE 68; RESP 16; TEMP 36.6; O2SAT 97
--- NOTE | 2023-11-19 17:10 | PC.NURSE ---
Ambulatory trial pt gait was unsteady without any assistive devices, Second attempt with walker pt gait improved steady gait with support. Provider aware.
--- NOTE | 2023-11-19 17:17 | PC.NURSE ---
Ambulation trial Gait was unsteady, attempted second time with walker ambulation trial successful gait steady with device, provider aware, provider observed second ambulation trial as well.
[2023-11-19 17:18] VITALS: BP 145/60; PULSE 68; RESP 16; TEMP 36.6; O2SAT 97
--- NOTE | 2023-11-19 17:19 | PC.NURSE ---
PT left blue sweater in PVT 2 room. PT cell phone called voicemail left.
== END 2023-11-19 17:19 | disposition home or self-care (01) ==
PROVIDERS: Emergency Provider Emergency Medicine; PCP Internal Medicine
DX: M79.651 Pain in right thigh (principal); I10 Essential (primary) hypertension; Z79.02 Long term (current) use of antithrombotics/antiplatelets; Z79.899 Other long term (current) drug therapy
CPT/HCPCS: 73552; 93971; 96372; 99284; J1885

== ENCOUNTER 2023-11-22 11:38 | Outpatient (REF) | payer MEDICARE, SELFPAY ==
[2023-11-22 13:46] LABS: MANUAL DIFF FLAG NO
[2023-11-22 13:55] LABS: Basophils Percent Auto 0.5 % (0-2); Eosinophils Absolute Auto 0.1 X10*3/uL (0.0-0.4); Eosinophils Percent Auto 0.7 % (0-4); Hematocrit 40.1 % (37.0-47.0); Hemoglobin 13.9 g/dl (12.0-16.0); Imm Gran Abs Auto 0.04 X10*3/uL (0.00-0.03); Imm Gran Pct Auto 0.5 % (0.0-0.4); Lymphocytes Absolute Auto 1.3 X10*3/uL (1.2-4.9); Lymphocytes Percent Auto 17.4 % (20-40); Mean Corpuscular HGB Conc 34.7 g/dl (31.0-35.0); Mean Corpuscular Hemoglobin 29.4 pg (27.0-33.0); Mean Corpuscular Volume 84.8 fL (80.0-98.0); Mean Platelet Volume 11.3 fL (9.4-12.3); Monocytes Absolute Auto 0.7 X10*3/uL (0.1-1.2); Monocytes Percent Auto 9.1 % (2-11); Neutrophils Absolute Auto 5.4 x10*3/uL (2.0-8.3); Neutrophils Percent Auto 71.8 % (45-73); Platelet Count 206 X10*3/uL (160-400); Red Blood Count 4.73 X10*6/uL (4.20-5.50); Red Cell Distribution Width 12.4 % (11.0-16.0); White Blood Count 7.6 X10*3/uL (4.8-10.8)
[2023-11-22 14:23] LABS: Alanine Aminotransferase 23 U/L (0-31); Albumin Level 4.5 g/dL (3.5-5.0); Alkaline Phosphatase 96 U/L (39-117); Anion Gap 14 (12-20); Aspartate Amino Transferase 28 U/L (5-31); Bilirubin Total 2.9 mg/dL (0.0-1.0); Blood Urea Nitrogen 13 mg/dL (9-16); C Reactive Protein < 0.10 mg/dL (< or = 0.50); Calcium 10.7 mg/dL (8.4-10.2); Carbon Dioxide 30 mmol/L (22-29); Chloride 88 mmol/L (96-108); Estimated Glomerular Filt Rate > 60; Glucose Random 145 mg/dL (60-115); Potassium 4.1 mmol/L (3.3-5.1); Sodium 128 mmol/L (135-145); Total Protein 7.3 g/dL (6.5-8.0)
[2023-11-22 14:37] LABS: Erythrocyte Sedimentation Rate 7 MM/HR (0-20)
[2023-11-22 14:42] LABS: Thyroid Stimulating Hormone 0.71 uIU/mL (0.32-4.0)
[2023-11-22 14:58] LABS: Parathyroid Hormone Intact 103.9 pg/mL (8.7-77.1)
== END 2023-11-22 11:39 | disposition home or self-care (01) ==
LOC: HO.HMGCLDS 11:38
PROVIDERS: PCP Internal Medicine; Visit Provider Internal Medicine
DX: I10 Essential (primary) hypertension (principal); E03.9 Hypothyroidism, unspecified; K22.719 Barrett's esophagus with dysplasia, unspecified; E83.52 Hypercalcemia
CPT/HCPCS: 36415; 80053; 83970; 84443; 85025; 85652; 86140

== ENCOUNTER 2023-12-03 10:47 | Outpatient (REF) | payer MEDICARE, SELFPAY ==
[2023-12-03 13:52] LABS: Alanine Aminotransferase 22 U/L (0-31); Albumin Level 4.4 g/dL (3.5-5.0); Alkaline Phosphatase 92 U/L (39-117); Anion Gap 12 (12-20); Aspartate Amino Transferase 22 U/L (5-31); Bilirubin Total 1.7 mg/dL (0.0-1.0); Blood Urea Nitrogen 14 mg/dL (9-16); Calcium 10.6 mg/dL (8.4-10.2); Carbon Dioxide 27 mmol/L (22-29); Chloride 102 mmol/L (96-108); Estimated Glomerular Filt Rate > 60; Glucose Random 128 mg/dL (60-115); Potassium 4.2 mmol/L (3.3-5.1); Sodium 137 mmol/L (135-145); Total Protein 7.2 g/dL (6.5-8.0)
[2023-12-03 14:17] LABS: Parathyroid Hormone Intact 107.4 pg/mL (8.7-77.1)
== END 2023-12-03 10:48 | disposition home or self-care (01) ==
LOC: HO.HMGCLDS 10:47
PROVIDERS: PCP Internal Medicine; Visit Provider Internal Medicine
DX: E87.1 Hypo-osmolality and hyponatremia (principal); E21.3 Hyperparathyroidism, unspecified; I10 Essential (primary) hypertension
CPT/HCPCS: 36415; 80053; 83970

== ENCOUNTER 2023-12-17 10:33 | Outpatient (AMB) | payer MEDICARE, SELFPAY ==
--- NOTE | 2023-12-17 10:42 | MHC.OFFVIS ---
Intake Visit Reasons: [employer]OPER- Sciatica of RT leg Intake Note: Francy is a 88 year old female who presents today as a new patient referred by Abdelrahman Muhammad DO for sciatica. Pt states this started 11/19/23 without any known injury. Pt states she went to an exercise class and isn't sure if that is what caused this pain. Pt states she has pain that starts in her back and goes down her right leg. Pt states the pain has gotten better but she states she still has numbness and tingling in her right foot. Pt denies any previous surgeries or injections in her legs or back. Allergies No Known Allergies [No Known Allergies*] Allergy (Verified 12/17/23 10:42) HPI Comments Details: No previous back issues. No history of disc herniations. History of osteoarthritis hands. Diagnosed in the past with RA, treated by Dr. Benito, but has been off medications, told not to need them anymore, for more than a year. Been active prior to onset. [facility]ed the [facility]balance [facility] There was a back stretch to reach the floor. Davis a twinge but continued. The next day, got up from seated position, could not stand or walk after. If she sat a certain way, it was not too bad. Went to ED. Evaluation was mainly from for right thigh/leg pain. Work up was negative for fracture and DVT. Prescribed medications but didn't use them. Says she didn't have pain but more of numbness, from ankle lateral to lateral foot, 3rd-5th. Back is now improved. She describes it as discomfort on right ankle, throwing her balance off. Gait is affected. Still try to do stairs. [facility] Surgical History History of colon resection History of hysterectomy History of modified radical mastectomy of left breast Family History Mother No problems noted. Father No problems noted. Social History Alcohol intake: current Alcohol intake frequency: a few times a month Alcohol type: wine Patient Tobacco Use Status: Never used Tobacco Review of Systems Const All systems reviewed & are unremarkable except as noted in HPI and below Physical Exam Constitutional: Patient appears to be in no acute distress, well nourished and well developed. Patient was appropriately conversant and oriented. Good historian. MSK: No specific abnormalities found on inspection of the spine and all extremities. No pain with palpation over the lumbar area. No tenderness on SI or GT. No calf tenderness. Lumbar ROM was full. Bilateral hip, knee and ankle ROM WNL. No ligamentous laxity or crepitance. No increased effusion. Slump sit positive right. FABERE test positive right. Neurological: Give-way weakness in right knee extension and hip flexion due to pain. No footdrop. No hyperreflexia. Pederson?s negative bilaterally. Babinski was down going bilaterally. Clonus was negative. Gait is antalgic without loss of balance. Results Reviewed Results Reviewed: I independently reviewed the results of the following: Femur x-ray done at the ER reviewed, question decreased joint space hip and knee, but was not on the official reading. I reviewed records from the following: ER Assessment & Plan Assessment & Plan (1) Right lumbar radiculitis: Code(s): M54.16 - Radiculopathy, lumbar region Category: Medical (2) Neurogenic claudication: Code(s): R29.818 - Other symptoms and signs involving the nervous system Category: Medical Plan Active 88 year old with acute onset right sided leg pain/paresthesia. Concern for lumbar disc herniation. It has affected her gait, strength and functionality. Referring to PT: work on gait and strength on RLE. Does not need a lot of sessions, but need guidance of what is safe to do at home. We also talked about what she can and can not do at home. Send her for lumbar x-rays today. At the time of writing this note, images reviewed, anterior endplates, disc space narrowing, anterior listhesis L2-3? Do not see any compression fracture. Await official reading. I think ultimately we need further imaging of lumbar spine. Despite being 88-year-old, she was fully active and cares for her older . We do need answers and prognosis. Lumbar MRI ordered. Assessment and plan discussed with patient, and patient was agreeable. All questions were answered thoroughly. Follow up after PT and MRI. Veronica Rios MD, DARRELL Board Certified, [place] [employer] and Rehabilitation (ABPMR) Board Certified, [place] Board [employer] Electrodiagnostic Medicine (ABEM) Orders: Orders XR lumbar spine 2-3V Today M54.16 - Radiculopathy, lumbar region, M54.9 - Dorsalgia, unspecified MR lumbar spine wo con Today M51.16 - Intervertebral disc disorders with radiculopathy, lumbar region, M54.16 - Radiculopathy, lumbar region, R29.818 - Other symptoms and signs involving the nervous system PT Evaluation and Treatment Today M54.16 - Radiculopathy, lumbar region Coding Level of Care Code New Pt Level 4 (29649) Diagnoses Right lumbar radiculitis M54.16 Neurogenic claudication R29.818
== END 2023-12-17 11:52 | disposition home or self-care (01) ==
PROVIDERS: PCP Internal Medicine; Visit Provider Physical Medicine & Rehabilitation
DX: M54.16 Radiculopathy, lumbar region (principal); R29.818 Other symptoms and signs involving the nervous system
CPT/HCPCS: 99203

== ENCOUNTER 2023-12-17 10:33 | Outpatient (REF) | payer MEDICARE, SELFPAY ==
--- NOTE | ~2023-12-17 | XR_ITS ---
EXAMINATION: XR LUMBOSACRAL SPINE 3 VIEWS CLINICAL INFORMATION: Dorsalgia, unspecified M54.9. COMPARISON: CT Abdomen pelvis with contrast 07/21/2018 TECHNIQUE: Three views of the lumbosacral spine. FINDINGS: There is a dextroscoliosis of the lower thoracic and upper lumbar spine. There is mild superior endplate irregularity and underlying degenerative disc disease at L1 and L2. No acute fractures are seen. Diffuse degenerative disc disease seen throughout the lower thoracic and lumbar spine. There is a grade 1 retrolisthesis of L2 on L3 and L3 on L4 due to the degenerative changes. Posterior facet joint arthropathy is seen from L3 through S1. XR/XR lumbar spine 2-3V IMPRESSION: 1. Dextroscoliosis of the lower thoracic and upper lumbar spine. 2. Diffuse degenerative disc disease and posterior facet joint arthropathy as described above. Electronically signed by: Jason Fleming MD 02/22/2024 11:07 AM [facility]
== END 2023-12-17 10:34 | disposition home or self-care (01) ==
LOC: HO.HOSX 10:33
PROVIDERS: PCP Internal Medicine; Visit Provider Physical Medicine & Rehabilitation
DX: M51.16 Intervertebral disc disorders with radiculopathy, lumbar region (principal); R29.818 Other symptoms and signs involving the nervous system
CPT/HCPCS: 72100; 99202

== ENCOUNTER → 2024-01-02 10:14 | Outpatient (BNV) | payer MEDICARE, SELFPAY | PROVIDERS: PCP Internal Medicine; Visit Provider Radiology Diagnostic Radiology | DX: M51.16 Intervertebral disc disorders with radiculopathy, lumbar region (principal) | CPT/HCPCS: 72148 ==

== ENCOUNTER 2024-01-02 10:31 | Outpatient (REF) | payer MEDICARE, SELFPAY | END 2024-01-02 10:32 | disposition home or self-care (01) | LOC: HO.MRI 10:31 | PROVIDERS: PCP Internal Medicine; Visit Provider Physical Medicine & Rehabilitation | DX: M51.16 Intervertebral disc disorders with radiculopathy, lumbar region (principal); R29.818 Other symptoms and signs involving the nervous system | CPT/HCPCS: 72148 ==

== ENCOUNTER 2024-01-06 12:00 | Outpatient (AMB) | payer MEDICARE, SELFPAY ==
--- NOTE | 2024-01-06 13:00 | AM.OFFWIN_ITS ---
Intake Vital Signs 01/06/24 13:04 Weight 145 lb BP 120/80 Blood Pressure Location Rt brachial Position Sitting Pulse 75 Pulse Source Pulse Oximeter Pulse Oximetry (%) 98 Oxygen Delivery Method Room Air Intake Visit Reasons: EP trouble hearing both ears,clogged Intake Note: Patient here for trouble hearing, she states the left ear is the worst one. Patient Tobacco Use Status: Never used Tobacco Allergies No Known Allergies [No Known Allergies*] Allergy (Verified 01/06/24 13:03) Do you need a note to return to daycare/school/sports/work: No HPI HPI Comments History of Present Illness Details This is an 88-year-old female presenting for evaluation of decreased hearing that has been ongoing over the past 10 days. Patient states she has been using [id number] ear drops bilaterally and feels that the right ear is now improved. Patient denies having any fevers, chills, otalgia, pharyngitis and does not utilize hearing aids in either ear. [facility] Surgical History History of colon resection History of hysterectomy History of modified radical mastectomy of left breast Family History Mother No problems noted. Father No problems noted. Social History Alcohol intake: current Alcohol intake frequency: a few times a month Alcohol type: wine Patient Tobacco Use Status: Never used Tobacco Review of Systems Const All systems reviewed & are unremarkable except as noted in HPI and below Reports no additional complaints Eyes Reports no additional complaints ENT Denies Normal hearing present and Reports otalgia Card Reports no additional complaints Resp Reports no additional complaints GI Reports no additional complaints Reports no additional complaints Musc Reports no additional complaints Neuro Denies Normal hearing present Psych Reports no additional complaints Physical Exam Vital Signs: Last Vital Signs Pulse 75 01/06/24 13:04 BP 120/80 01/06/24 13:04 Pulse Ox 98 01/06/24 13:04 Oxygen Delivery Method Room Air 01/06/24 13:04 Const General: cooperative, healthy appearing, comfortable and no acute distress Nutritional Appearance: average body habitus Orientation/consciousness: patient oriented x3 Limitations: no limitations and ambulation with cane HEENT Head: Yes normocephalic Ears: hearing grossly normal bilaterally, external ears normal, TM normal on the right and unable to visualize TM (Cerumen impaction) on the left General nose exam: Normal external nose present Mouth: Normal oral and palatal mucosa present and oropharynx normal Throat: Yes posterior oropharynx normal Neuro General: patient oriented x3 Cranial nerves: No Normal hearing present Psych Appearance: grossly normal Mental Status: mental status grossly normal Insight: Good insight present (Psych) Judgement: Good judgement present (Psych) Office Procedures Cerumen Removal From which ear canal was the cerumen removed: left Removal: irrigation and otoscope w/curette Notes: patient tolerated procedure well, no complications and ear canal clear [id number] Wax Removal by Spoon/Curette Assessment & Plan Assessment & Plan (1) Impacted cerumen of left ear: Comment: Cerumen removed; canal clear. Code(s): H61.22 - Impacted cerumen, left ear Plan: No follow-up required at this time. Patient advised to avoid Q.tips while canal is moist. Coding Level of Care Code Est Pt Level 3 (59223) Diagnoses Impacted cerumen of left ear H61.22 CPT Codes Office Procedure - CPT: 74907-Kkm Wax Removal by Spoon/Curette ([id number]) Time Spent (min) 20
[2024-01-06 13:04] VITALS: BP 120/80; PULSE 75; O2SAT 98
== END 2024-01-06 14:38 | disposition home or self-care (01) ==
PROVIDERS: PCP Internal Medicine; Visit Provider Physician Assistant
DX: H61.22 Impacted cerumen, left ear (principal)

== ENCOUNTER → 2024-01-06 12:00 | Outpatient (BNVA) | payer MEDICARE, SELFPAY | PROVIDERS: PCP Internal Medicine; Visit Provider Physician Assistant | DX: H61.22 Impacted cerumen, left ear (principal) | CPT/HCPCS: 69210; 99212 ==

== ENCOUNTER 2024-01-20 11:00 | Outpatient (RCR) | payer MEDICARE, SELFPAY ==
--- NOTE | 2023-12-31 11:34 | MHC.PT.EP ---
[facility] [place] [facility] [place] Office [place] Office [address] Jhonathan Moya [address] [phone] F: [phone] F: [phone] F: [phone] F: [phone] Physical Therapy Plan of Care Date of Evaluation: 12/31/23 Date of Surgery: Diagnosis: This is an 88 yo female presenting to skilled PT with a script for radiculopathy, lumbar region. Assessment: This is an 88 yo female presenting to skilled PT with a script for radiculopathy, lumbar region. Pt states this started 11/19/23 without any known injury, however she does state she went to an exercise class (bones and balance at [facility]) and this may have caused her pain. In the class she performed a back stretch where she bent forward to reach the floor and this is when she felt a twinge. By the end of the week, she got up from seated position and could not stand or walk after. She ended up going to the ED, however it appears her back was not evaluated, only her leg. Her work up was negative for fracture and DVT and she was prescribed medications but did not use them. Since then her symptoms are improved however she has does not endure much pain, more of numbness and buzzing . The symptoms run now posterior lower leg, Achilles, lateral ankle and into the 3 lateral toes. She feels like her symptoms are throwing her balance off and her gait is affected (came in with a straight cane but does not normally use this). Assessment reveals pain that ranges from up to a 3/10 at the worst. Patient demos decreased lumbar and RLE ROM, strength of core, back and gluts, impaired posture with forward head and rounded shoulders, scolosis noted with forward flexion and with visual assessment, decreased gait and balance. Based on functional limitations, impaired QOL and pain tolerance patient is a good candidate for skilled PT 2x/wk for 4wks. Frequency and Duration: The patient will be seen 2x/wk for 4wks Short Term Goals: Pt will demonstrate improved postural awareness and understanding of core engagement with supine and standing tasks without cues throughout session to improve overall back safety in 2 weeks. Pt will demonstrate centralization of sx in 2 weeks. Pt will continue to reinforce precautions, sitting, standing and ADL modifications with proper body mechanics in 2 wks. Snf Goals: Pt will demonstrate improved outcome measure by 5 points in 4 weeks for improved functional mobility. Pt will demonstrate ability to bend and lift WNL min to no pain for household tasks in 4 wks. Pt will be I in HEP and compliant in 4wks Treatment Plan: Modalities to reduce pain, spasms and effusion. Manual therapy to restore motion and function. Therapeutic exercise to improve strength and flexibility. Neuromuscular re-education for posture and balance. Therapeutic activities to return to functional activities of daily living. Electronically signed by: Eliza Botello PT Please sign and return to therapist. Thank you for your referral.
--- NOTE | 2024-01-20 14:14 | MHC.PT.PR ---
[facility] [place] Office [place] Office [place] Office [address] Jhonathan Moya [address] [phone] F: [phone] F: [phone] F: [phone] F: [phone] Physical Therapy Progress Note Diagnosis: This is an 88 yo female presenting to skilled PT with a script for radiculopathy, lumbar region. Date of Surgery: Date of Evaluation: 12/31/23 Treatments to Date: 6 Cancellations to Date: 0 No Shows to Date: 0 Subjective: Patient is the same Pain Score and Location: 3 R LE Objective Measures: See EI Assessment: 01/19: Patient has come to 6 PT appointments, I am putting her on a PT hold until she sees the MD as she has been plateauing in progress if not getting a little worse. She reports weakness and instability in her leg and increasing back pain. I educated her on a nonpainful HEP to continue while she waits to see the MD. We have trialed MH/ice, TrP, manual STM, manual stretching, ther-ex for core and back strengthening. She would benefit from follow up with referring MD. PT Plan: Hold PT Frequency and Duration: The patient will be seen 2x/wk for 4wks Treatment Plan: Therapeutic Exercise Dynamic Therapeutic Activities Neuromuscular Re-ed Manual Therapies Taping Gait Home Exercise Program Patient Education Hot or Cold Pack Reviewed/ Agreed with Student Documentation: Therapist: Thank you once again for your referral.
--- NOTE | 2024-02-21 09:30 | MHC.PT.DC ---
[facility] [place] Office [place] Office [place] Office [address] Jhonathan Moya [address] [phone] F: [phone] F: [phone] F: [phone] F: [phone] Physical Therapy Discharge Report Diagnosis: This is an 88 yo female presenting to skilled PT with a script for radiculopathy, lumbar region. Date of Surgery: Date of Evaluation: 12/31/23 Date of Discharge: 02/21/24 Treatments to Date: 6 Cancellations to Date: 0 No Shows to Date: 0 Discharge Status: Recommend MD Follow-up Discharge Summary: Patient has come to 6 PT appointments, I am putting her on a PT hold until she sees the MD as she has been plateauing in progress if not getting a little worse. She reports weakness and instability in her leg and increasing back pain. I educated her on a nonpainful HEP to continue while she waits to see the MD. We have trialed MH/ice, TrP, manual STM, manual stretching, ther-ex for core and back strengthening. She is awaiting MRI results. She would benefit from follow up with referring MD. I DC'd her chart after 30 days of not being at the facility. Electronically signed by: Eliza Botello, PT Please sign and return to therapist. Thank you for your referral.
== END 2024-02-21 09:30 | disposition home or self-care (01) ==
LOC: HO.PTCHIC 11:00
PROVIDERS: PCP Internal Medicine; Visit Provider Physical Medicine & Rehabilitation
DX: M54.16 Radiculopathy, lumbar region (principal)
CPT/HCPCS: 97110; 97140; 97162

== ENCOUNTER 2024-03-28 10:02 | Outpatient (AMB) | payer MEDICARE, SELFPAY ==
--- NOTE | 2024-03-28 10:05 | MHC.PC.OV ---
Vital Signs 03/28/24 10:12 Height 5 ft 4.25 in Weight 147 lb BMI 25.0 BP 144/80 H Blood Pressure Location Rt brachial Position Sitting Pulse 77 Temp 97.2 F Pulse Oximetry (%) 98 Intake Visit Reasons: 3 month follow up Intake Note: Pt states 3 month follow up. Concerns regarding current medication. Bilateral ankel edema in the evening. Pharmacy Teacher Required: No Allergies No Known Allergies [No Known Allergies*] Allergy (Verified 03/28/24 11:14) Medication List - Last Reconciled 03/28/24 by Radha Johnson PA-C amlodipine 2.5 mg PO DAILY 90 days atorvastatin 10 mg PO DAILY 90 days levothyroxine 50 mcg PO DAILY 90 days metoprolol succinate ER 100 mg PO DAILY 90 days pantoprazole 40 mg PO DAILY 90 days [facility] Medical History (Updated 03/28/24 @ 11:19 by Radha Johnson PA-C) Breast cancer Surgical History History of colon resection History of hysterectomy History of modified radical mastectomy of left breast Family History Mother No problems noted. Father No problems noted. Social History Alcohol intake: current Alcohol intake frequency: a few times a month Alcohol type: wine Patient Tobacco Use Status: Never used Tobacco Physical exam (Primary Care) Vital Signs: Last Vital Signs Temp 97.2 F 03/28/24 10:12 Pulse 77 03/28/24 10:12 BP 144/80 H 03/28/24 10:12 Pulse Ox 98 03/28/24 10:12 Care Plan Goal for BP management: 144/80 BP today patient just had medication changes at her last visit. Will reassess in 6 months if continues to be elevated patient will have increased her blood pressure medication. BMI result Body Mass Index 25.0 BMI Assessment/Plan discussion: High BMI High, discussed plan: lifestyle, weight reduction, dietary, physical activity and alcohol moderation Tobacco/Smoking Status: Tobacco use Status Patient Tobacco Use Status Never used Tobacco 03/28/24 10:10 Coding Level of Care Code New Pt Level 4 (42810) Complex EM visit Add On G2211 Diagnoses Follow-up exam, 3-6 months since previous exam Z09 Essential hypertension I10 Elevated parathyroid hormone related peptide level R79.89 Hypothyroidism E03.9 Mild hypercholesterolemia E78.00 GERD (gastroesophageal reflux disease) K21.9 Barretts esophagus K22.70 Gastritis K29.70 Arthritis M19.90 Uterine fibroid D25.9 Endometriosis N80.9 Breast cancer C50.919 Melanoma C43.9 Irritable bowel syndrome with diarrhea K58.0 Overweight (BMI 25.0-29.9) E66.3 Assessment & Plan Assessment & Plan (1) Follow-up exam, 3-6 months since previous exam: Code(s): Z09 - Encounter for follow-up examination after completed treatment for conditions other than malignant neoplasm Category: Medical (2) Essential hypertension: Code(s): I10 - Essential (primary) hypertension Category: Medical Plan: Blood pressure 144/80 although patient is currently on amlodipine with recently a decreased dose to 2.5 and she is currently on metoprolol. Will reassess at next visit for goal of 130/80. Condition is chronic and stable will continue to monitor. (3) Elevated parathyroid hormone related peptide level: Code(s): R79.89 - Other specified abnormal findings of blood chemistry Category: Medical Plan: Patient had an elevated parathyroid hormone level of 107.4 on 11/22/2023. Will refer to endocrinology. Condition is chronic and stable will continue to monitor. (4) Hypothyroidism: Code(s): E03.9 - Hypothyroidism, unspecified Category: Medical Plan: Patient has a history of thyroid disease currently on levothyroxine taking as prescribed. Had a normal TSH level on 11/22/2023. Will refer to endocrinology. Condition is chronic and stable. (5) Mild hypercholesterolemia: Code(s): E78.00 - Pure hypercholesterolemia, unspecified Category: Medical Plan: Patient currently on atorvastatin. Condition is chronic and stable will continue to monitor. (6) GERD (gastroesophageal reflux disease): Code(s): K21.9 - Gastro-esophageal reflux disease without esophagitis Category: Medical Plan: Patient currently on PPI. Will refill today. Condition is chronic and stable continue to monitor. (7) Barretts esophagus: Code(s): K22.70 - Peralta's esophagus without dysplasia Category: Medical Plan: Condition chronic and stable continue to monitor. (8) Gastritis: Code(s): K29.70 - Gastritis, unspecified, without bleeding Category: Medical Plan: Condition chronic and stable continue to monitor. (9) Arthritis: Code(s): M19.90 - Unspecified osteoarthritis, unspecified site Category: Medical Plan: Condition chronic and stable continue to monitor. (10) Uterine fibroid: Code(s): D25.9 - Leiomyoma of uterus, unspecified Category: Medical Plan: Condition chronic and stable continue to monitor. (11) Endometriosis: Code(s): N80.9 - Endometriosis, unspecified Category: Medical Plan: Condition chronic and stable continue to monitor. (12) Breast cancer: Comment: Status post left radical mastectomy at the age of 17 Code(s): C50.919 - Malignant neoplasm of unspecified site of unspecified female breast Category: Medical Plan: History of ongoing mammograms. She reports last mammogram was last year. Will continue to monitor. (13) Melanoma: Code(s): C43.9 - Malignant melanoma of skin, unspecified Category: Medical Plan: Condition is chronic and stable will continue to monitor. (14) Irritable bowel syndrome with diarrhea: Code(s): K58.0 - Irritable bowel syndrome with diarrhea Category: Medical Plan: Condition chronic and stable continue to monitor. (15) Overweight (BMI 25.0-29.9): Code(s): E66.3 - Overweight Category: Medical Plan: Patient to improve diet and exercise. Condition is chronic and stable will continue to monitor Plan Plan - Continue monitoring thyroid function and renew levothyroxine prescription. - Continue all other medications as previously prescribed. - Order comprehensive blood work, including fasting glucose, electrolytes, and calcium/PTH levels, for assessment before next appointment. - Refer to an casting machine adjuster for further evaluation of persistent hypercalcemia and parathyroid hormone elevation. Orders: Orders Comprehensive Pearson. Panel Fast Today I10 - Essential (primary) hypertension, R79.89 - Other specified abnormal findings of blood chemistry, Z09 - Encounter for follow-up examination after completed treatment for conditions other than malignant neoplasm Lipid Panel Today C43.9 - Malignant melanoma of skin, unspecified, C50.919 - Malignant neoplasm of unspecified site of unspecified female breast, D25.9 - Leiomyoma of uterus, unspecified, E03.9 - Hypothyroidism, unspecified, E78.00 - Pure hypercholesterolemia, unspecified, K21.9 - Gastro-esophageal reflux disease without esophagitis, K22.70 - Peralta's esophagus without dysplasia, K29.70 - Gastritis, unspecified, without bleeding, K58.0 - Irritable bowel syndrome with diarrhea, M19.90 - Unspecified osteoarthritis, unspecified site, N80.9 - Endometriosis, unspecified, R79.89 - Other specified abnormal findings of blood chemistry, Z09 - Encounter for follow-up examination after completed treatment for conditions other than malignant neoplasm Magnesium Today C43.9 - Malignant melanoma of skin, unspecified, C50.919 - Malignant neoplasm of unspecified site of unspecified female breast, D25.9 - Leiomyoma of uterus, unspecified, E03.9 - Hypothyroidism, unspecified, E78.00 - Pure hypercholesterolemia, unspecified, K21.9 - Gastro-esophageal reflux disease without esophagitis, K22.70 - Peralta's esophagus without dysplasia, K29.70 - Gastritis, unspecified, without bleeding, K58.0 - Irritable bowel syndrome with diarrhea, M19.90 - Unspecified osteoarthritis, unspecified site, N80.9 - Endometriosis, unspecified, R79.89 - Other specified abnormal findings of blood chemistry, Z09 - Encounter for follow-up examination after completed treatment for conditions other than malignant neoplasm Vitamin D 25-OH Total Today C43.9 - Malignant melanoma of skin, unspecified, C50.919 - Malignant neoplasm of unspecified site of unspecified female breast, D25.9 - Leiomyoma of uterus, unspecified, E03.9 - Hypothyroidism, unspecified, E78.00 - Pure hypercholesterolemia, unspecified, K21.9 - Gastro-esophageal reflux disease without esophagitis, K22.70 - Peralta's esophagus without dysplasia, K29.70 - Gastritis, unspecified, without bleeding, K58.0 - Irritable bowel syndrome with diarrhea, M19.90 - Unspecified osteoarthritis, unspecified site, N80.9 - Endometriosis, unspecified, R79.89 - Other specified abnormal findings of blood chemistry, Z09 - Encounter for follow-up examination after completed treatment for conditions other than malignant neoplasm PTH Intact Intraoperative Today I10 - Essential (primary) hypertension, R79.89 - Other specified abnormal findings of blood chemistry Complete Blood Count Auto Diff Today I10 - Essential (primary) hypertension, R79.89 - Other specified abnormal findings of blood chemistry, Z09 - Encounter for follow-up examination after completed treatment for conditions other than malignant neoplasm Erythrocyte Sedimentation Rate Today E03.9 - Hypothyroidism, unspecified, E78.00 - Pure hypercholesterolemia, unspecified, I10 - Essential (primary) hypertension, K21.9 - Gastro-esophageal reflux disease without esophagitis, K22.70 - Peralta's esophagus without dysplasia, K29.70 - Gastritis, unspecified, without bleeding, K58.0 - Irritable bowel syndrome with diarrhea, R79.89 - Other specified abnormal findings of blood chemistry, Z09 - Encounter for follow-up examination after completed treatment for conditions other than malignant neoplasm C Reactive Protein Today I10 - Essential (primary) hypertension, R79.89 - Other specified abnormal findings of blood chemistry, Z09 - Encounter for follow-up examination after completed treatment for conditions other than malignant neoplasm Hemoglobin A1c Today E03.9 - Hypothyroidism, unspecified, E78.00 - Pure hypercholesterolemia, unspecified, K21.9 - Gastro-esophageal reflux disease without esophagitis, K58.0 - Irritable bowel syndrome with diarrhea, R79.89 - Other specified abnormal findings of blood chemistry, Z09 - Encounter for follow-up examination after completed treatment for conditions other than malignant neoplasm TSH reflex Free T4 Today C43.9 - Malignant melanoma of skin, unspecified, C50.919 - Malignant neoplasm of unspecified site of unspecified female breast, D25.9 - Leiomyoma of uterus, unspecified, E03.9 - Hypothyroidism, unspecified, E78.00 - Pure hypercholesterolemia, unspecified, K21.9 - Gastro-esophageal reflux disease without esophagitis, K22.70 - Peralta's esophagus without dysplasia, K29.70 - Gastritis, unspecified, without bleeding, K58.0 - Irritable bowel syndrome with diarrhea, M19.90 - Unspecified osteoarthritis, unspecified site, N80.9 - Endometriosis, unspecified, R79.89 - Other specified abnormal findings of blood chemistry, Z09 - Encounter for follow-up examination after completed treatment for conditions other than malignant neoplasm Liver Panel Today C43.9 - Malignant melanoma of skin, unspecified, C50.919 - Malignant neoplasm of unspecified site of unspecified female breast, D25.9 - Leiomyoma of uterus, unspecified, E03.9 - Hypothyroidism, unspecified, E78.00 - Pure hypercholesterolemia, unspecified, K21.9 - Gastro-esophageal reflux disease without esophagitis, K22.70 - Peralta's esophagus without dysplasia, K29.70 - Gastritis, unspecified, without bleeding, K58.0 - Irritable bowel syndrome with diarrhea, M19.90 - Unspecified osteoarthritis, unspecified site, N80.9 - Endometriosis, unspecified, R79.89 - Other specified abnormal findings of blood chemistry, Z09 - Encounter for follow-up examination after completed treatment for conditions other than malignant neoplasm Phosphorus Today C43.9 - Malignant melanoma of skin, unspecified, C50.919 - Malignant neoplasm of unspecified site of unspecified female breast, D25.9 - Leiomyoma of uterus, unspecified, E03.9 - Hypothyroidism, unspecified, E78.00 - Pure hypercholesterolemia, unspecified, K21.9 - Gastro-esophageal reflux disease without esophagitis, K22.70 - Peralta's esophagus without dysplasia, K29.70 - Gastritis, unspecified, without bleeding, K58.0 - Irritable bowel syndrome with diarrhea, M19.90 - Unspecified osteoarthritis, unspecified site, N80.9 - Endometriosis, unspecified, R79.89 - Other specified abnormal findings of blood chemistry, Z09 - Encounter for follow-up examination after completed treatment for conditions other than malignant neoplasm Medications: Changed From atorvastatin 10 mg PO DAILY To atorvastatin 10 mg PO DAILY 90 tabs 1RF 90 days From metoprolol succinate ER 100 mg PO DAILY To metoprolol succinate ER 100 mg PO DAILY 90 tabs 1RF 90 days From pantoprazole 40 mg PO DAILY To pantoprazole 40 mg PO DAILY 90 tabs 1RF 90 days From amlodipine 5 mg PO DAILY To amlodipine 2.5 mg PO DAILY 90 tabs 1RF 90 days From levothyroxine 50 mcg PO DAILY To levothyroxine 50 mcg PO DAILY 90 tabs 1RF 90 days Patient Instructions: Patient Instructions - Continue with prescribed medications, including adjusted dosage of amlodipine. - Schedule and complete fasting laboratory tests prior to the next visit. - Monitor for any worsening of symptoms, especially related to edema and glucose levels. - Follow up with casting machine adjuster as scheduled for further evaluation of thyroid and parathyroid conditions. - Report any new symptoms or concerns through the patient portal. - Plan for a six-month follow-up unless instructed otherwise by results of lab tests. Scribe Plan - Not visible on output: History of Present Illness The patient is an 88-year-old female presenting with a need for 3-6 month follow up. She is requesting medication refills and management of multiple chronic conditions. She has a history of hypertension, managed with metoprolol and recently amlodipine, which was adjusted due to low sodium levels and edema. Dr. Muhammad adjusted the amlodipine dosage to manage the edema, which still presents mildly by late afternoon but resolves by morning. The patient also reports being on ARIDs for her eyes and takes alprazolam occasionally for insomnia. Hypothyroid condition is managed with levothyroxine, and she inquires about refilling this medication. There were discussions regarding the lack of recent HbA1c tests despite elevated glucose levels noted at 128 mg/dL, prompting a need for updated blood glucose monitoring due to her history of thyroid and parathyroid abnormalities. The history includes a past mastectomy on the left breast due to a significant growth in her teenage years, without a confirmed diagnosis of breast cancer at that time. There is a family history of cancer, with recent loss of a sibling to pancreatic cancer. Social History - The patient has a supportive family background as indicated by her interaction with siblings and mention of having multiple pregnancies. - There is no reported tobacco, alcohol, or illicit drug use. - She manages her medications through online systems and remains involved in her health management. - The patient expressed her experience with past medical treatments dating back several decades, which impacted her life significantly. Review of Systems - Endocrine: Reports mild edema in the lower extremities towards the evening. - Musculoskeletal: Denies current history of fall, despite presence of bruising. - Gastrointestinal: Denies any specific gastrointestinal complaints. - Neurological: Denies any report of cognitive issues or other neurological symptoms. Physical Exam Appearance: Alert. Oriented X3. No acute distress. Head: Normal external exam. Normocephalic. Atraumatic. Some bruising noted, likely age-related spots. Eyes: Pupils are equal, round, and reactive to light. Extraocular movements intact. Conjunctiva and sclera normal. Eyelids normal. Ears: External auditory canal normal. Tympanic membranes normal. Throat: Pharynx normal. Uvula midline. Moist mucous membranes. Neck: Normal inspection. Neck supple. Full range of motion. No adenopathy. Thyroid Normal. No meningeal signs. No neck mass noted. Cardiovascular: Normal heart rate and rhythm. Heart sound normal. No murmurs noted. Pulses normal throughout. Respiratory: No respiratory distress. Painless inspiration. Breath sounds normal. No wheezes/rales/rhonchi noted. Chest nontender. No accessory muscle usage noted or decreased air movement noted. Abdomen: Soft and nontender. Bowel sounds normal in all 4 quadrants. No distention noted. No organomegaly noted. No visible injury noted. Back: No costovertebral angle tenderness. Full range of motion noted. Skin: Skin warm and dry. Normal skin color. Normal skin turgor. No rashes/lesions/lacerations noted. Extremities: No lower extremity edema. Extremities exhibit normal range of motion. Extremities nontender. Neuro: Oriented X 3. No motor deficit. No sensory deficit. Reflexes normal. Results - Labs: Elevated blood glucose at 128 mg/dL, high calcium levels at 10.6 mg/dL, elevated parathyroid hormone levels at 107.4 pg/mL. - No HbA1c results available from recent months despite history of elevated glucose readings. Plan - Continue monitoring thyroid function and renew levothyroxine prescription. - Continue all other medications as previously prescribed. - Order comprehensive blood work, including fasting glucose, electrolytes, and calcium/PTH levels, for assessment before next appointment. - Refer to an casting machine adjuster for further evaluation of persistent hypercalcemia and parathyroid hormone elevation. Patient was informed and verbally consented to the use of an ambient scribe for clinic note documentation during this visit. Discussion Notes During our meeting, I reviewed the management of her hypertension and discussed the ongoing medication regimen with adjustments for edema. For her thyroid and parathyroid abnormalities, we established a need for updated blood tests. I have ordered a referral to an casting machine adjuster to explore potential underlying causes for elevated calcium and parathyroid hormone levels. I affirmed that there are no changes needed for her anxiety and insomnia medications at this time, and ensured all necessary prescriptions were renewed through [facility]. We discussed follow-up timelines and agreed on a six-month follow-up unless earlier intervention is required based on lab results. Patient Instructions - Continue with prescribed medications, including adjusted dosage of amlodipine. - Schedule and complete fasting laboratory tests prior to the next visit. - Monitor for any worsening of symptoms, especially related to edema and glucose levels. - Follow up with casting machine adjuster as scheduled for further evaluation of thyroid and parathyroid conditions. - Report any new symptoms or concerns through the patient portal. - Plan for a six-month follow-up unless instructed otherwise by results of lab tests.
[2024-03-28 10:12] VITALS: BP 144/80; PULSE 77; TEMP 36.2; O2SAT 98; BMI 25.0
== END 2024-03-28 10:47 | disposition home or self-care (01) ==
LOC: HO.HMCSH 10:02
PROVIDERS: PCP Internal Medicine; Visit Provider Physician Assistant Medical
DX: Z09 Encounter for follow-up examination after completed treatment for conditions other than malignant neoplasm (principal); I10 Essential (primary) hypertension; R79.89 Other specified abnormal findings of blood chemistry; E03.9 Hypothyroidism, unspecified; E78.00 Pure hypercholesterolemia, unspecified; K21.9 Gastro-esophageal reflux disease without esophagitis; K22.70 Barrett's esophagus without dysplasia; K29.70 Gastritis, unspecified, without bleeding; M19.90 Unspecified osteoarthritis, unspecified site; D25.9 Leiomyoma of uterus, unspecified; N80.9 Endometriosis, unspecified; C50.919 Malignant neoplasm of unspecified site of unspecified female breast; C43.9 Malignant melanoma of skin, unspecified; K58.0 Irritable bowel syndrome with diarrhea; E66.3 Overweight

== ENCOUNTER → 2024-03-28 10:02 | Outpatient (BNVA) | payer MEDICARE, SELFPAY | PROVIDERS: PCP Internal Medicine; Visit Provider Physician Assistant Medical | DX: Z09 Encounter for follow-up examination after completed treatment for conditions other than malignant neoplasm (principal); I10 Essential (primary) hypertension; R79.89 Other specified abnormal findings of blood chemistry; E03.9 Hypothyroidism, unspecified; E78.00 Pure hypercholesterolemia, unspecified; K21.9 Gastro-esophageal reflux disease without esophagitis; K22.70 Barrett's esophagus without dysplasia; K29.70 Gastritis, unspecified, without bleeding; M19.90 Unspecified osteoarthritis, unspecified site; D25.9 Leiomyoma of uterus, unspecified; N80.9 Endometriosis, unspecified; C43.9 Malignant melanoma of skin, unspecified; K58.0 Irritable bowel syndrome with diarrhea; E66.3 Overweight | CPT/HCPCS: 99202 ==

== ENCOUNTER 2024-04-03 12:18 | Outpatient (REF) | payer MEDICARE, SELFPAY ==
[2024-04-03 16:26] LABS: Appearance Urine Cloudy; Color Urine Yellow; Glucose Urine UA Negative (Negative); Leukocyte Esterase Urine Large (3+) (Negative); Nitrite Urine Negative (Negative); PH 6.5 (5.0-9.0); Specific Gravity - Urine 1.015 (1.005-1.025); UMIC TRIGGER UACC YES; Urine Blood Large (3+) (Negative); Urine Ketones Negative (Negative); Urine Protein 30 (1+) mg/dL (Neg-Trace)
[2024-04-03 16:32] LABS: Bacteria Urine Trace (None Seen); RBC Urine >20 /HPF (0-2); Squamous Epithelial Cell Urine 0-2 /HPF (0-2); UACC Culture Trigger YES; WBC Urine >50 /HPF (0-5)
--- OUTSIDE RECORDS SUMMARY | 2024-04-03 17:03 | XMS_ITS ---
Author Organization Abdelrahman Muhammad DO, FACP Address [address] [place], [place] [id number] Care Team Providers Care Comber Tender Name Role Phone Abdelrahman Muhammad Primary Care Provider [phone] REASON FOR VISIT Message MEDICATIONS Medication SIG (Take, Route, Frequency, Duration) Notes Start Date End Date Status Escitalopram Oxalate 10 MG 1 tablet Oral ly Once a day for 90 days 02/22/2024 Active Encounters Encounter Location Date Provider Diagnosis Abdelrahman Muhammad DO, FACP [address] [place] [address] [id number] 02/22/2024 Abdelrahman Muhammad PLAN OF TREATMENT Medication Medication Name Sig Start Date Stop Date Notes Escitalopram Oxalate 10 MG 1 tablet Oral ly Once a day for 90 days 02/22/2024
--- OUTSIDE RECORDS SUMMARY | 2024-04-03 17:04 | XMS_ITS ---
Author Organization Abdelrahman Muhammad DO, FACP Address [address] [place], [place] [id number] Care Team Providers Care Laborer Drying Department Name Role Phone Abdelrahman Muhammad Primary Care Provider [phone] REASON FOR VISIT FYI only VITAL SIGNS Blood pressure systolic 132 mm Hg 02/01/20 24 Blood pressure diastolic 56 mm Hg 024 Height 64.25 in 02/01/2024 Encounters Encounter Location Date Provider Diagnosis Abdelrahman Muhammad DO, FACP [address] [place] [id number] 02/01/2024 Abdelrahman Muhammad PLAN OF TREATMENT No Information
--- OUTSIDE RECORDS SUMMARY | 2024-04-03 17:04 | XMS_ITS ---
Author Organization [facility] Address [address] [place], [place] [id number] Care Team Providers Care Lunchroom Aide Name Role Phone Abdelrahman Muhammad Primary Care Provider REASON FOR VISIT 3 month f/u Encounters Encounter Location Date Provider Diagnosis Abdelrahman Muhammad DO, FAC[address] [id number] 03/28/2024 Abdelrahman Muhammad PLAN OF TREATMENT No Information
== END 2024-04-03 12:19 | disposition home or self-care (01) ==
LOC: HO.HMGCLDS 12:18
PROVIDERS: PCP Internal Medicine; Visit Provider Physician Assistant Medical
DX: R30.0 Dysuria (principal)
CPT/HCPCS: 81001; 87086; 87088; 87186

== ENCOUNTER → 2024-04-07 11:42 | Outpatient (BNVA) | payer MEDICARE, SELFPAY | PROVIDERS: PCP Internal Medicine; Visit Provider Physical Medicine & Rehabilitation | DX: M51.16 Intervertebral disc disorders with radiculopathy, lumbar region (principal) | CPT/HCPCS: 99212 ==

== ENCOUNTER 2024-04-14 11:13 | Outpatient (REF) | payer MEDICARE, SELFPAY ==
--- OUTSIDE RECORDS SUMMARY | 2024-04-14 12:15 | XMS_ITS ---
Author Organization Abdelrahman Muhammad DO, FACP Address [address] [place], [place] [id number] Care Team Providers Care Political Reporter Name Role Phone Abdelrahman Muhammad Primary Care Provider REASON FOR VISIT FYI only VITAL SIGNS Blood pressure systolic 132 mm Hg 02/01/20 24 Blood pressure diastolic 56 mm Hg 024 Height 64.25 in 02/01/2024 Encounters Encounter Location Date Provider Diagnosis Abdelrahman Muhammad DO, FACP [address] [place] [id number] 02/01/2024 Abdelrahman Muhammad PLAN OF TREATMENT No Information
--- OUTSIDE RECORDS SUMMARY | 2024-04-14 12:15 | XMS_ITS ---
Author Organization [facility]delrahman [facility] Address [address] [place], [place] [id number] Care Team Providers Care Toe Stripper Name Role Phone Abdelrahman Muhammad Primary Care Provider [phone] REASON FOR VISIT 3 month f/u Encounters Encounter Location Date Provider Diagnosis Abdelrahman Muhammad DO, FAC[address] [id number] 03/28/2024 Abdelrahman Muhammad PLAN OF TREATMENT No Information
--- OUTSIDE RECORDS SUMMARY | 2024-04-14 12:15 | XMS_ITS ---
Author Organization Abdelrahman Muhammad DO, FACP Address [address] [place], [place] [id number] Care Team Providers Care Level Vial Grinder Name Role Phone Abdelrahman Muhammad Primary Care Provider [phone] REASON FOR VISIT Message MEDICATIONS Medication SIG (Take, Route, Frequency, Duration) Notes Start Date End Date Status Escitalopram Oxalate 10 MG 1 tablet Oral ly Once a day for 90 days 02/22/2024 Active Encounters Encounter Location Date Provider Diagnosis Abdelrahman Muhammad DO, FACP [address] [place] [phone] 02/22/2024 Abdelrahman Muhammad PLAN OF TREATMENT Medication Medication Name Sig Start Date Stop Date Notes Escitalopram Oxalate 10 MG 1 tablet Oral ly Once a day for 90 days 02/22/2024
[2024-04-14 14:06] LABS: Appearance Urine Clear; Color Urine Yellow; Glucose Urine UA Negative (Negative); Leukocyte Esterase Urine Small (1+) (Negative); Nitrite Urine Negative (Negative); PH 5.5 (5.0-9.0); UMIC TRIGGER UACC YES; Urine Blood Negative (Negative); Urine Ketones Trace mg/dL (Negative); Urine Protein Negative (Neg-Trace)
[2024-04-14 14:24] LABS: Bacteria Urine None Seen (None Seen); Calcium Oxalate Crystals Urine Present; Hyaline Casts Urine 0-2 /LPF (0-2); RBC Urine 0-2 /HPF (0-2); UACC Culture Trigger YES; WBC Urine 0-5 /HPF (0-5)
== END 2024-04-14 11:14 | disposition home or self-care (01) ==
LOC: HO.HMGCLDS 11:13
PROVIDERS: PCP Physician Assistant Medical; Visit Provider Physician Assistant Medical
DX: R30.0 Dysuria (principal)
CPT/HCPCS: 81001; 81003; 87086

== ENCOUNTER 2024-07-21 12:59 | Outpatient (AMB) | payer MEDICARE, SELFPAY ==
--- NOTE | 2024-07-21 13:02 | A.OFFPC_ITS ---
Vital Signs 07/21/24 13:03 Height 5 ft 4.25 in Weight 138 lb BMI 23.5 BP 139/65 Respiration 14 Pulse 70 Pulse Source Pulse Oximeter Temp 97.6 F Temp Source Temporal Artery Scan Intake Visit Reasons: rapid heartbeat, night sweats Rope Cutter Required: No Accompanied by: Self / Same As Patient Allergies propranolol [From Inderal LA] Allergy (Verified 07/21/24 13:48) Nightmare Atenolol Allergy (Uncoded 07/21/24 13:48) Fatigued Medication List - Last Reconciled 07/21/24 by Radha Johnson PA-C amlodipine 2.5 mg PO DAILY 90 days atorvastatin 10 mg PO DAILY 90 days escitalopram oxalate 10 mg PO DAILY levothyroxine 50 mcg PO DAILY 90 days lorazepam (Ativan) 1 mg PO BEDTIME PRN metoprolol succinate ER 100 mg PO DAILY 90 days pantoprazole 40 mg PO DAILY 90 days Tobacco use date assessed: 07/21/24 Fall risk assessment: No Falls in past year Last assessed Fall Risk: 07/21/24 Dental Screening Dental Screen Date: 07/21/24 Did you have a dental visit in the last 12 months?: Yes Did you have a dental problem in the last 6 months where you did not have access to dental care?: No Was dental information given to patient?: Patient has dentist HPI rapid heartbeat, night sweats HPI Details The patient is an 88-year-old female presenting with episodes of tachycardia that predominantly occur after dinner. She reports the episodes do not occur during daytime hours but become more frequent in the evenings. The patient experiences a fast heart rate with accompanying sweating and a general feeling of being unwell. These episodes are intermittent, presenting a couple of times a week over the last month. She denies having any associated chest pain, shortness of breath, or nausea/vomiting. There is sometimes a feeling of lightheadedness, which might be related to her blood pressure. Additionally, she expresses difficulty sleeping, and this sleep disruption affects her level of activity when her sleep is poor. She has a known history of elevated parathyroid hormone levels, which has been monitored by her previous physician, and she remains compliant with her thyroid medication regimen. Social History - The patient reports living with her so n, who struggles with alcohol use, causing stress. - She discusses difficulty sleeping and uses lorazepam occasionally to aid with sleep, especially during stressful periods. - She has been consistent with her medic ations, following prescribed regimens accurately. [facility] Medical History (Updated 07/21/24 @ 17:25 by Radha Johnson PA-C) Tachycardia Serum calcium elevated Elevated parathyroid hormone Breast cancer Surgical History History of colon resection History of hysterectomy History of modified radical mastectomy of left breast Family History Mother No problems noted. Father No problems noted. Social History Housing: House Alcohol intake: current Alcohol intake frequency: a few times a week Alcohol type: wine Patient Tobacco Use Status: Never used Tobacco service: No Current occupational status: retired Cognitive needs: No Hearing needs: No Vision needs: Yes (rx glasses) Questionnaire AUDIT C Alcohol Use Questionnaire (AUDIT-C) 1. How often do you have a drink containing alcohol?: 4 or more times a week 2. How many drinks containing alcohol do you have on a typical day when you are drinking?: 1 or 2 3. How often do you have six or more drinks on one occasion?: Never Total Score: 4 Score Reviewed/Action Taken: Yes (score reviewed ) Review of Systems Const Details: - Cardiovascular: Reports episodes of fast heart rate, especially after dinner. Denies chest pain or shortness of breath. - General: Reports feeling sweaty with episodes. Denies being drenched in sweat. - Neurological: Reports occasional lightheadedness. Denies numbness or tingling anywhere. - Respiratory: Denies shortness of breath. - Gastrointestinal: Denies nausea or vomiting. Physical exam (Primary Care) Vital Signs: Last Vital Signs Temp 97.6 F 07/21/24 13:03 Pulse 70 07/21/24 13:03 Resp 14 07/21/24 13:03 BP 139/65 07/21/24 13:03 Care Plan Goal for BP management: <130/90 at Goal BMI result Body Mass Index 23.5 normal bmi Tobacco/Smoking Status: Tobacco use Status Tobacco use date assessed 07/21/24 07/21/24 13:13 Patient Tobacco Use Status Never used Tobacco 07/21/24 13:13 Thrive Assessment: Date of Thrive Assessment Date Thrive assessed 07/21/24 13:13 Const Other: Appearance: Alert. Oriented X3. No acute distress. Head: Normal external exam. Normocephalic. Atraumatic. Eyes: Pupils are equal, round, and reactive to light. Extraocular movements intact. Conjunctiva and sclera normal. Eyelids normal. Ears: External auditory canal normal. Tympanic membranes normal. Throat: Pharynx normal. Uvula midline. Moist mucous membranes. Neck: Normal inspection. Neck supple. Full range of motion. No adenopathy. Thyroid Normal. No meningeal signs. No neck mass noted. Cardiovascular: Normal heart rate and rhythm. Heart sound normal. No murmurs noted. Pulses normal throughout. Respiratory: No respiratory distress. Painless inspiration. Breath sounds normal. No wheezes/rales/rhonchi noted. Chest nontender. No accessory muscle usage noted or decreased air movement noted. Abdomen: Soft and nontender. Bowel sounds normal in all 4 quadrants. No distention noted. No organomegaly noted. No visible injury noted. Back: No costovertebral angle tenderness. Full range of motion noted. Skin: Skin warm and dry. Normal skin color. Normal skin turgor. No rashes/lesions/lacerations noted. Extremities: No lower extremity edema. Extremities exhibit normal range of motion. Extremities nontender. Neuro: Oriented X 3. No motor deficit. No sensory deficit. Reflexes normal. Office Procedures EKG Details: EKG normal sinus rhythm with a ventricular rate of 75 with LVH. No acute ischemic change are noted. Dr. Moralez agreed with this via [email or web address] reported no ischemia. [id number], Complete Results Reviewed Results Reviewed: - Labs: Elevated parathyroid hormone levels noted from prior tests. Coding Level of Care Code Est Pt Level 4 (64677) Complex EM visit Add On G2211 Diagnoses Elevated parathyroid hormone R79.89 Tachycardia R00.0 CPT Codes EKG - CPT: 55053-[id number], Complete ([id number]) Assessment & Plan Assessment & Plan (1) Elevated parathyroid hormone: Code(s): R79.89 - Other specified abnormal findings of blood chemistry Category: Medical Plan: The patient has elevated parathyroid hormone levels. Blood work will help evaluate calcium levels. Depending on the results, further evaluation for hyperparathyroidism may be considered, with potential endocrinology consultation if needed. (2) Tachycardia: Code(s): R00.0 - Tachycardia, unspecified Category: Medical Plan: The patient experiences tachycardia episodes mostly after dinner. An EKG was normal, without associated chest pain or shortness of breath. We will use a Holter monitor to assess these episodes, and the patient will undergo comprehensive blood work to rule out endocrine causes. Plan Plan Patient was informed and verbally consented to the use of an ambient scribe for clinic note documentation during this visit. 1. Tachycardia The patient experiences tachycardia episodes mostly after dinner. An EKG was normal, without associated chest pain or shortness of breath. We will use a Holter monitor to assess these episodes, and the patient will undergo comprehensive blood work to rule out endocrine causes. 2. Hyperparathyroidism The patient has elevated parathyroid hormone levels. Blood work will help evaluate calcium levels. Depending on the results, further evaluation for hyperparathyroidism may be considered, with potential endocrinology consultation if needed. I discussed with the patient the nature of her tachycardia episodes, which occur after dinner and are not associated with chest pain. The importance of capturing these episodes with a Holter monitor was emphasized. I recommended comprehensive blood work, including evaluations of the thyroid and parathyroid hormone levels, to identify any endocrine contributions to her symptoms. For her elevated parathyroid hormone, I advised continuing with blood work at the [facility] to examine persistent hormone levels and decide subsequent steps. We also discussed the potential need for endocrinology referral following results from her lab testing. Anticipatory guidance was provided concerning her symptoms of increased heart rate, explaining when to seek urgent care, especially if chest pain or other alarming symptoms develop. Orders: Orders Comprehensive Met. Panel Today Z00.00 - Encounter for general adult medical examination without abnormal findings Parathyroid Hormone Intact Today Z00.00 - Encounter for general adult medical examination without abnormal findings Vitamin B12 and Folate Today Z00.00 - Encounter for general adult medical examination without abnormal findings CA echo transthoracic complete Today R00.2 - Palpitations ECG 3 day holter monitor Today R00.2 - Palpitations Medications: New lorazepam (Ativan) 1 mg PO BEDTIME PRN 30 tabs 0RF anxiety Patient Instructions: - Get blood work done at the [facility] as discussed to check thyroid and parathyroid levels. - Expect a call to schedule a Holter monitor and ultrasound of the heart within the next 2-3 weeks. - If you develop chest pain, go to the ER or call us immediately. - Continue taking thyroid medication as prescribed. - Consider using lorazepam sparingly to aid sleep when needed. - Keep your follow-up appointment in September to review test results. - Notify us if you experience new or worsening symptoms.
[2024-07-21 13:03] VITALS: BP 139/65; PULSE 70; RESP 14; TEMP 36.4; BMI 23.5
== END 2024-07-21 13:43 | disposition home or self-care (01) ==
LOC: HO.HMCSH 12:59
PROVIDERS: PCP Physician Assistant Medical; Visit Provider Physician Assistant Medical
DX: R79.89 Other specified abnormal findings of blood chemistry (principal); R00.0 Tachycardia, unspecified

== ENCOUNTER → 2024-07-21 12:59 | Outpatient (BNVA) | payer MEDICARE, SELFPAY | PROVIDERS: PCP Physician Assistant Medical; Visit Provider Physician Assistant Medical | DX: R79.89 Other specified abnormal findings of blood chemistry (principal); R00.0 Tachycardia, unspecified | CPT/HCPCS: 93005; 99212 ==

== ENCOUNTER → 2024-08-18 07:57 | Outpatient (REF) | payer MEDICARE, SELFPAY ==
--- NOTE | 2024-08-18 08:01 | CA_ITS ---
Transthoracic Echocardiogram Patient (Last, First, Middle): Francy Shields A Gender: Female Date of : 1935 Age: 88 Procedure Date: 08/18/2024 Procedure Type: Transthoracic Echocardiogram Location: OP Height: 165.1 cm Weight: 65.77 kg BSA: 1.73 m2 Heart Rate: bpm BP: 116 / 60 mmHg Store Custodian: Referring MD: Radha Johnson PA-C Choke Setter: Pierce Nickerson MD Symptoms: R00.2 - Palpitations Study Quality: Good ECG Rhythm: Sinus Conclusions: - 1. Severe pulmonary hypertension with mildly elevated right atrial pressures 2. Normal LV ejection fraction of 60 65% with grade 2 diastolic dysfunction 3. Pyku-om-nxsrdkrv mitral regurgitation 4. At least moderate tricuspid regurgitation 5. No gross pericardial effusion Findings Left Ventricle Normal left ventricular size, thickness, and systolic function. The visually estimated ejection fraction is between 60-65%. Spectral Doppler is indicative of a pseudonormal filling pattern. E/E prime ratio is >15, consistent with elevated filling pressures. Evidence suggests grade II (moderate) diastolic dysfunction. Right Ventricle Normal right ventricular cavity size. There is normal right ventricular systolic function. Atria The left atrium is likely dilated. There is no evidence of interatrial shunt. The right atrium is likely dilated. Aortic Valve Normal aortic valve structure and function. There is no aortic valve stenosis. There is no aortic valve regurgitation. Mitral Valve There is mild anterior and moderate posterior mitral leaflet thickening. There is mild mitral annular calcification. There is mild to moderate mitral valve regurgitation. There is no mitral valve stenosis. Pulmonic Valve The pulmonic valve is likely normal. Tricuspid Valve Normal tricuspid valve structure. There is moderate tricuspid valve regurgitation. Mildly elevated right atrial pressure. Severe pulmonary hypertension is present. Great Vessels All visible segments of the aorta are normal in size. The pulmonary artery was not well visualized. Venous The inferior vena cava is normal in size and collapses less than 50% with inspiration. Pericardium/Pleural There is no evidence of pericardial effusion. Prior Study Comparison Changes noted compared to prior study dated: 09/29/2022. RV systolic pressure is significantly elevated Measurements 2D Linear Measurements IVSd: 1.17 0.6-0.9/0.6-1.0 cm LVIDd: 3.92 3.9-5.3/4.2-5.9 cm LVIDd Index: 2.27 2.4-3.2/2.2-3.1 cm/m2 LVIDs: 2.52 2.0-3.6 cm LVPWd: 1.14 0.7-1.1 cm Ao Root: 2.80 2.1-3.5 cm LA Diam: 4.00 2.7-3.8/3.0-4.0 cm LAIDs Index: 2.31 1.5-2.3 cm/m2 LV Mass: 188.83 67-162/88-224 g LV Mass Index: 109.15 43-95/49-115 g/m2 LVOT Diam: 1.90 3.0+(-)1.3 cm Mitral Valve MV Pk E: 1.17 MV PK A: 1.00 MV Decel Time: 204.00 E/A: 1.20 E'Lateral: 5.87 E'Medial: 5.98 E/E' Med: 19.60 E/E' Lat: 19.90 PHT: 60.00 MVA PHT: 3.67 Decel [place]: 5.71 Aortic Valve AoV Pk Cory: 1.59 AoV Mn Cory: 1.05 AoV VTI: 0.38 AoV Pk Grad: 10.00 Aov Mn Grad: 5.00 ROBERT Cont.VTI: 2.14 LVOT LVOT Pk Cory: 1.20 LVOT Mn Cory: 0.77 LVOT VTI: 0.29 LVOT Pk Grad: 6.00 LVOT Mn Grad: 3.00 LVOT Diam: 1.90 LVOT Area: 2.84 Diastolic Function MV Pk E: 1.17 MV Pk A: 1.00 E/A: 1.20 E'Medial: 5.98 E/E' Med: 19.60 E' Laterial: 5.87 E/E' Lat: 19.90 Right Ventricle TAPSE (mm): 23.00 TVS' Cory: 13.00 Tricuspid Valve TR Pk Cory: 4.24 TR Pk Grad: 72.00 RA Press: 8.00 RVSP: 80.00 Great Vessels Aorta Ao Root-2D: 2.80 2.0-3.7 cm Ao Asc: 2.70 2.1-3.4 cm Pulmonary Valve PV Pk Cory: 0.81 Peak PV Grad: 3.00 Updated in Other Vendor System with Status of Final Pierce Nickerson MD electronically signed on 08/19/2024 11:34:41 AM with status of Final
== END ==
LOC: HO.CARD 07:57
PROVIDERS: PCP Physician Assistant Medical; Visit Provider Physician Assistant Medical
DX: R00.2 Palpitations (principal)
CPT/HCPCS: 93242; 93306

== ENCOUNTER → 2024-08-18 08:01 | Outpatient (BNV) | payer MEDICARE, SELFPAY | PROVIDERS: PCP Physician Assistant Medical; Visit Provider Internal Medicine Cardiovascular Disease | DX: I27.20 Pulmonary hypertension, unspecified (principal); I34.0 Nonrheumatic mitral (valve) insufficiency; I36.1 Nonrheumatic tricuspid (valve) insufficiency | CPT/HCPCS: 93306 ==

== ENCOUNTER 2024-08-29 09:26 | Outpatient (AMB) | payer MEDICARE, SELFPAY ==
[2024-08-29 09:37] VITALS: BP 162/70; PULSE 69; BMI 23.5
--- NOTE | 2024-08-29 09:37 | A.OFFVIS_ITS ---
Vital Signs 08/29/24 09:37 Height 5 ft 4.5 in Weight 138 lb 14.259 oz BMI 23.5 BP 162/70 H Blood Pressure Location Rt brachial Position Sitting Pulse 69 Pulse Source Pulse Oximeter Intake Visit Reasons: f/up/Johnson/abn echo/ previous km pt Associate Software Development Engineer Required: No Boring Mill Set Up Operator: Boring Mill Set Up Operator Present Allergies propranolol (From Inderal LA) Allergy (Verified 07/21/24 13:48) Nightmare Atenolol Allergy (Uncoded 07/21/24 13:48) Fatigued Medication List - Last Reconciled 08/29/24 by PÉREZ Ramírez amlodipine 2.5 mg PO DAILY 90 days atorvastatin 10 mg PO DAILY 90 days escitalopram oxalate 5 mg PO DAILY levothyroxine 50 mcg PO DAILY 90 days lorazepam (Ativan) 1 mg PO BEDTIME PRN metoprolol succinate ER 100 mg PO DAILY 90 days pantoprazole 40 mg PO DAILY 90 days HPI HPI f/up/Johnson/abn echo/ previous km pt: Details: Francy is an 87-year-old female with past medical history of hypertension, hyperlipidemia, heart palpitations who recently had an echocardiogram and Holter monitor and now presents for follow-up. Her last visit here was 02/09/2023. Today she reports she has been getting heart palpitations, rapid heartbeats lasting typically less than 1 hour at a time. She will notice some shortness of breath when she feels palpitations. No chest discomfort at rest or with act ivity. No lightheadedness, presyncope, syncope. She has been taking her metoprolol and other meds as directed. She remains physically active throughout the day. No history of bleeding issues. is present. [facility]LY [facility], [facility] Medical History Abnormal echocardiogram Moderate tricuspid regurgitation Moderate mitral regurgitation Severe pulmonary hypertension Tachycardia Serum calcium elevated Elevated parathyroid hormone Breast cancer Surgical History History of colon resection History of hysterectomy History of modified radical mastectomy of left breast Family History Mother No problems noted. Father No problems noted. Social History Housing: House Alcohol intake: current Alcohol intake frequency: a few times a week Alcohol type: wine Patient Tobacco Use Status: Never used Tobacco service: No Current occupational status: retired Cognitive needs: No Hearing needs: No Vision needs: Yes (rx glasses) Review of Systems Const All systems reviewed & are unremarkable except as noted in HPI and below ENT Denies dizziness Card Denies chest pain, Denies chest pain at rest, Denies chest pain with activity, Reports rapid heart rate, Denies pedal edema, Denies edema, Denies leg edema, Denies lightheadedness, Reports palpitations, Denies dyspnea, Denies dyspnea on exertion and Denies orthopnea Resp Denies cough, Denies dyspnea and Denies dyspnea on exertion GI Denies hematochezia and Denies change in stool character Musc Denies abnormal gait, Denies limited range of motion, Denies muscle cramps, Denies muscle weakness, Denies numbness, Denies radiating pain into limb, Denies stiffness and Denies tingling Neuro Denies abnormal gait, Denies dizziness, Denies numbness and Denies tingling Endo Reports palpitations Physical Exam Vital Signs: Last Vital Signs Pulse 69 08/29/24 09:37 BP 162/70 H 08/29/24 09:37 BMI result Body Mass Index 23.5 Const General: cooperative, healthy appearing, comfortable and no acute distress Orientation/consciousness: patient oriented x3 Neck Neck: Yes normal visual inspection Resp Effort & Inspection: normal respiratory effort Auscultation: clear to auscultation bilaterally, no rales, no rhonchi and no wheezes Cardio Jugular venous distension: no JVD Rate: regular rate Rhythm: regular rhythm Heart sounds: S1 normal heart sound present, S2 normal heart sound present, no murmurs and no rubs Neuro General: patient oriented x3 Extrem General: Yes normal to inspection Psych Appearance: grossly normal Mental Status: mental status grossly normal Speech and movement: Normal speech and movement present Assessment & Plan Assessment & Plan (1) Paroxysmal atrial fibrillation: Code(s): I48.0 - Paroxysmal atrial fibrillation Category: Medical Plan: History of heart palpitations with prior evaluation showing rare SVE. She had ongoing reports of heart palpitations and underwent a Holter monitor on 08/18/2024 showing sinus rhythm with paroxysmal atrial fibrillation burden 0.49%, longest episode 34 minutes rate 116. Her underlying rhythm is sinus with average 63 beats per minute. Diagnosis of atrial fibrillation, stroke risk and med management reviewed with her. Labs from 07/21/2024 show hematocrit 41.6 creatinine 0.68 TSH 0.876. Pulse is regular on examination today. Already on metoprolol XL 100 mg daily. Will check with her primary ski edge painter regarding use of antiarrhythmic since average heart rate is already 63. Will start on Eliquis 5 mg b.i.d. which is the appropriate dose for her weight and creatinine. Cardiology follow-up in 4-6 weeks, sooner if needed (2) Palpitations: Code(s): R00.2 - Palpitations Category: Medical (3) Essential hypertension: Code(s): I10 - Essential (primary) hypertension Category: Medical Plan: Blood pressure goal less than 130/80. Blood pressure elevated today in office. She reports white coat syndrome and being anxious about her recent testing. At this time she will continue amlodipine, metoprolol. Going forward she may benefit from the addition of a diuretic as she does have severe pulmonary hypertension. Will follow. (4) Moderate tricuspid regurgitation: Code(s): I07.1 - Rheumatic tricuspid insufficiency Category: Medical Plan: Recent echo showing moderate tricuspid regurgitation and [id number] mitral regurgitation. Reviewed this finding with her. No evidence of fluid overload on examination. (5) Moderate mitral regurgitation: Code(s): I34.0 - Nonrheumatic mitral (valve) insufficiency Category: Medical (6) Severe pulmonary hypertension: Code(s): I27.20 - Pulmonary hypertension, unspecified Category: Medical Plan: Echocardiogram shows findings of severe pulmonary hypertension. She denies having shortness of breath with activity. She does not appear fluid overloaded. Continue with blood pressure management. Plan Time spent on chart review, documentation, intravenous assess Medications: New apixaban (Eliquis) new 5 mg PO BID 60 tabs 1RF Coding Level of Care Code Est Pt Level 4 (92485) Complex EM visit Add On G2211 Diagnoses Paroxysmal atrial fibrillation I48.0 Palpitations R00.2 Essential hypertension I10 Moderate tricuspid regurgitation I07.1 Moderate mitral regurgitation I34.0 Severe pulmonary hypertension I27.20 Time Spent (min) 30
== END 2024-08-29 10:25 | disposition home or self-care (01) ==
LOC: HO.HCS 09:27
PROVIDERS: PCP Physician Assistant Medical; Visit Provider Nurse Practitioner Family
DX: I48.0 Paroxysmal atrial fibrillation (principal); R00.2 Palpitations; I10 Essential (primary) hypertension; I07.1 Rheumatic tricuspid insufficiency; I34.0 Nonrheumatic mitral (valve) insufficiency; I27.20 Pulmonary hypertension, unspecified
CPT/HCPCS: 99214; G2211

== ENCOUNTER → 2024-08-29 09:26 | Outpatient (BNVA) | payer MEDICARE, SELFPAY | PROVIDERS: PCP Physician Assistant Medical; Visit Provider Nurse Practitioner Family | DX: I48.0 Paroxysmal atrial fibrillation (principal); R00.2 Palpitations; I10 Essential (primary) hypertension; I07.1 Rheumatic tricuspid insufficiency; I34.0 Nonrheumatic mitral (valve) insufficiency; I27.20 Pulmonary hypertension, unspecified | CPT/HCPCS: 99212 ==

== ENCOUNTER 2024-09-12 10:59 | Outpatient (AMB) | payer MEDICARE, SELFPAY ==
[2024-09-12 11:06] VITALS: BP 138/68; PULSE 72; TEMP 36.8; O2SAT 96; BMI 23.3
--- NOTE | 2024-09-12 11:06 | MHC.PC.OV ---
Vital Signs 09/12/24 11:06 Height 5 ft 4.25 in Weight 137 lb 0.8 oz BMI 23.3 BP 138/68 Blood Pressure Location Rt brachial Pulse 72 Temp 98.3 F Pulse Oximetry (%) 96 Intake Visit Reasons: 6 month follow up Intake Note: would like to discuss eliquis Allergies propranolol (From Inderal [place]) Allergy (Verified 09/12/24 11:34) Nightmare Atenolol Allergy (Uncoded 09/12/24 11:34) Fatigued Medication List - Last Reconciled 09/12/24 by Radha Johnson PA-C amlodipine 2.5 mg PO DAILY 90 days apixaban (Eliquis) 5 mg PO BID atorvastatin 10 mg PO DAILY 90 days escitalopram oxalate 5 mg PO DAILY levothyroxine 50 mcg PO DAILY 90 days lorazepam (Ativan) 1 mg PO BEDTIME PRN metoprolol succinate ER 100 mg PO DAILY 90 days pantoprazole 40 mg PO DAILY 90 days Tobacco use date assessed: 07/21/24 Dental Screening Dental Screen Date: 07/21/24 HPI 6 month follow up HPI Details The patient is an 88-year-old female presenting for a discussion on advanced care planning, including ventilation preferences and hospital transfer decisions. The patient inquired about the use of CPAP as a noninvasive ventilation method and its compatibility with her existing Do Not Resuscitate (DNR) and Do Not Intubate (DNI) orders. She was reassured that CPAP provides positive pressure support without the need for intubation, allowing her to breathe independently with assistance. The patient also discussed her preference to avoid hospital transfers, expressing a desire not to have her life prolonged under certain medical circumstances. The conversation included scenarios where hospital transfer might be beneficial, such as in cases of treatable infections like urinary tract infections or pneumonia. Patient did not understand this initially although after discussion she would like hospital transfers although does not want any invasive interventions such as dialysis, feeding tube, G-tube or IV hydration. Social History - Family status: , Abdelrahman Shields, is designated as healthcare proxy. [facility] Medical History Advanced care planning/counseling discussion DNR (do not resuscitate) (~09/12/24) DNI (do not intubate) (~09/12/24) Abnormal echocardiogram Moderate tricuspid regurgitation Moderate mitral regurgitation Severe pulmonary hypertension Tachycardia Serum calcium elevated Elevated parathyroid hormone Breast cancer Surgical History History of colon resection History of hysterectomy History of modified radical mastectomy of left breast Family History Mother No problems noted. Father No problems noted. Social History Housing: House Alcohol intake: current Alcohol intake frequency: a few times a week Alcohol type: wine Patient Tobacco Use Status: Never used Tobacco service: No Current occupational status: retired Cognitive needs: No Hearing needs: No Vision needs: Yes (rx glasses) Questionnaire Thrive Questionnaire Date Thrive assessed: 09/12/24 I am a: Patient What is your living situation today?: I have a steady place to live Within the past 12 months, did the food you bought not last and you didn't have the money to get more?: Never true Within the past 12 months, did you worry whether your food would run out before you got money to buy more?: Never true Do you have trouble paying for medicines?: No Do you have trouble getting transportation to medical appointments?: No Do you have trouble paying your heating and electricity bill?: No Do you have trouble taking care of your child, family member or friend?: No Do you have trouble with day-to-day activities such as bathing, preparing meals, shopping, managing finances, etc.?: No Are you currently unemployed and looking for a job?: No Are you interested in more education?: No THRIVE Score: 0 AUDIT C Alcohol Use Questionnaire (AUDIT-C) 1. How often do you have a drink containing alcohol?: 4 or more times a week 2. How many drinks containing alcohol do you have on a typical day when you are drinking?: 1 or 2 3. How often do you have six or more drinks on one occasion?: Never Total Score: 4 Score Reviewed/Action Taken: Yes (score reviewed ) LORENZA-7 AMB Questionnaire LORENZA-7 Date LORENZA - 7 assessed: 09/12/24 Feeling nervous, anxious, or on edge: 0 = Not at all Not being able to stop or control worryin = Not at all Worrying too much about different things: 0 = Not at all Trouble relaxin = Not at all Being so restless that it is hard to sit still: 0 = Not at all Becoming easily annoyed or irritable: 0 = Not at all Feeling afraid as if something awful might happen: 0 = Not at all Total LORENZA-7 score (0-4 normal; 5-9 mild; 10-14 moderate; 15-21 severe): 0 Source: Developed by Drs. Abdelrahman Jay, Shannan Duarte, Agustin Mario and colleagues, with an educational lata from [employer]. LORENZA-7 Assessment Billing LORENZA-7 Assessment Tool: LORENZA-7 Assessment 86899 Physical exam (Primary Care) Vital Signs: Last Vital Signs Temp 98.3 F 09/12/24 11:06 Pulse 72 09/12/24 11:06 BP 138/68 09/12/24 11:06 Pulse Ox 96 09/12/24 11:06 Care Plan Goal for BP management: <140/90 at Goal BMI result Body Mass Index 23.3 Normal BMI Tobacco/Smoking Status: Tobacco use Status Tobacco use date assessed 07/21/24 09/12/24 11:14 Patient Tobacco Use Status Never used Tobacco 09/12/24 11:14 Thrive Assessment: Date of Thrive Assessment Date Thrive assessed 09/12/24 09/12/24 11:14 Const Other: Appearance: Alert. Oriented X3. No acute distress. Head: Normal external exam. Normocephalic. Atraumatic. Eyes: Pupils are equal, round, and reactive to light. Extraocular movements intact. Conjunctiva and sclera normal. Eyelids normal. Throat: Pharynx normal. Uvula midline. Moist mucous membranes. Neck: Normal inspection. Neck supple. Full range of motion. Cardiovascular: Normal heart rate and rhythm. Respiratory: No respiratory distress. Painless inspiration. Back: Full range of motion noted. Skin: Skin warm and dry. Normal skin color. Normal skin turgor. No rashes/lesions/lacerations noted. Extremities: Extremities exhibit normal range of motion. Coding Level of Care Code Est Pt Level 4 (57442) Complex EM visit Add On G2211 Diagnoses Advanced care planning/counseling discussion Z71.89 DNR (do not resuscitate) Z66 DNI (do not intubate) Z78.9 Additional Codes LORENZA-7 Assessment Billing - LORENZA-7 Assessment Tool: LORENZA-7 Assessment 41233 ([id number]) Assessment & Plan Assessment & Plan (1) Advanced care planning/counseling discussion: Code(s): Z71.89 - Other specified counseling Category: Medical Plan: Patient is a DNR DNI with transfer to the hospital. Her is her healthcare proxy. (2) DNR (do not resuscitate): Onset Date: ~09/12/24 Code(s): Z66 - Do not resuscitate Category: Medical Plan: The patient has a Do Not Resuscitate order in place, indicating her preference not to undergo resuscitation efforts in the event of cardiac or respiratory arrest. (3) DNI (do not intubate): Onset Date: ~09/12/24 Code(s): Z78.9 - Other specified health status Category: Medical Plan: The patient has a Do Not Intubate order, reflecting her decision to avoid invasive mechanical ventilation. Plan Plan Patient was informed and verbally consented to the use of an ambient scribe for clinic note documentation during this visit. 1. Use Of Cpap For Noninvasive Ventilation The patient has opted for the use of CPAP as a noninvasive ventilation method, which aligns with her DNR and DNI orders as it does not require intubation. 2. Do Not Resuscitate (Dnr) Order The patient has a Do Not Resuscitate order in place, indicating her preference not to undergo resuscitation efforts in the event of cardiac or respiratory arrest. 3. Do Not Intubate (Dni) Order The patient has a Do Not Intubate order, reflecting her decision to avoid invasive mechanical ventilation. 4. Hospital Transfer Preference The patient expressed a preference for hospital transfers, especially in cases where treatable conditions such as infections might be present. During the visit, we discussed the patient's advanced care planning preferences, including the use of CPAP for noninvasive ventilation, and her DNR and DNI orders. We also reviewed her preference of hospital transfers, especially in cases where treatable conditions might be present, such as infections. Patient Instructions: - Review and confirm advanced care planning preferences with family and healthcare proxy. - Ensure healthcare proxy is aware of the DNR, DNI, and hospital transfer preferences.
== END 2024-09-12 11:42 | disposition home or self-care (01) ==
LOC: HO.HMCSH 10:59
PROVIDERS: PCP Physician Assistant Medical; Visit Provider Physician Assistant Medical
DX: Z71.89 Other specified counseling (principal); Z66 Do not resuscitate; Z78.9 Other specified health status

== ENCOUNTER → 2024-09-12 10:59 | Outpatient (BNVA) | payer MEDICARE, SELFPAY | PROVIDERS: PCP Physician Assistant Medical; Visit Provider Physician Assistant Medical | DX: Z71.89 Other specified counseling (principal); Z66 Do not resuscitate; Z78.9 Other specified health status | CPT/HCPCS: 96127; 99212 ==

== ENCOUNTER 2024-10-06 09:54 | Outpatient (AMB) | payer MEDICARE, SELFPAY ==
[2024-10-06 10:08] VITALS: BMI 23.7
--- NOTE | 2024-10-06 10:08 | A.OFFVIS_ITS ---
Vital Signs 10/06/24 10:08 Height 5 ft 4 in Weight 138 lb BMI 23.7 Intake Visit Reasons: OV- Lumbar Spine MRI Review Intake Note: Francy is a 88 year old female who presents today as a follow up for Lumbar Spine MRI Review, 01/02/24. At last visit on 04/07/24 we discussed that she continues with home exercise's and use her walker. At today's visit she states that she would like to discuss at home exercises that would help strengthen her right leg, she added that she does not want to attend physical therapy. Patient states that her lower back pain is still radiating down to the right leg, no changes. Allergies propranolol (From Inderal [place]) Allergy (Verified 10/06/24 10:11) Nightmare Atenolol Allergy (Uncoded 09/12/24 11:34) Fatigued HPI Comments Details: Since last visit, she's been doing well. Bothers her when she sits for awhile. Starts to have feeling on the calf. It is less numb but depends on the sitting. Wallking for distance also a challenge, feels does not have the strength. Stepping up step with right leg is still weaker than left. No new weakness. No new falls. No bladder/bowel changes. She is active but does not do any formal exercises. [facility] Medical History Advanced care planning/counseling discussion DNR (do not resuscitate) (~09/12/24) DNI (do not intubate) (~09/12/24) Abnormal echocardiogram Moderate tricuspid regurgitation Moderate mitral regurgitation Severe pulmonary hypertension Tachycardia Serum calcium elevated Elevated parathyroid hormone Breast cancer Surgical History History of colon resection History of hysterectomy History of modified radical mastectomy of left breast Family History Mother No problems noted. Father No problems noted. Social History Housing: House Alcohol intake: current Alcohol intake frequency: a few times a week Alcohol type: wine Patient Tobacco Use Status: Never used Tobacco service: No Current occupational status: retired Cognitive needs: No Hearing needs: No Vision needs: Yes (rx glasses) Physical Exam Vital Signs: BMI result Body Mass Index 23.7 Constitutional: Patient appears to be in no acute distress, well nourished and well developed. Patient was appropriately conversant and oriented. Good historian. Neurological: Gait is non antalgic without loss of balance. Results Reviewed Results Reviewed: Ordering Physician: Veronica Obrien Date of Service: 01/02/24 Procedure(s): MR lumbar spine wo con Accession Number(s): [id number] cc: Abdelrahman Muhammad DO; Veronica Obrien~ EXAMINATION: MR LUMBAR SPINE WITHOUT CONTRAST CLINICAL INFORMATION: Intervertebral discs disorders with radiculopathy, lumbar region. COMPARISON: None available. TECHNIQUE: MRI of the lumbar spine was obtained using routine sequences without contrast. FINDINGS: Submitted for interpretation on February 24, 2024. Last rib-bearing vertebra labeled T12. Bone marrow inhomogeneity. No bone marrow STIR signal abnormality. Multilevel marginal osteophyte formation and disc desiccation. Grade 1 retrolisthesis, L1 to, L2-3, L3-4 and L4-5 levels on a degenerative basis. Levoconvex curvature apex at L3-4. Conus medullaris ends at pedicle of L1 with normal signal. T12-L1: No herniated disc. No neuroforamina stenosis. L1-2: No herniated disc. No neuroforamina stenosis. L2-3: Broad-based disc bulging. Facet joint and ligamentum flavum hypertrophy. No herniated disc. No neuroforamina stenosis. L3-4: Bilateral facet joint and ligamentum flavum hypertrophy. Broad-based disc bulging. Reduced AP diameter of the thecal sac and the neural foramina. L4-5: Broad-based disc bulging. Facet joint and ligamentum flavum hypertrophy bilaterally. Reduced AP diameter of the thecal sac. Right neuroforamina narrowing on a degenerative basis. L5-S1: Broad-based disc bulging. Facet joint and ligamentum flavum hypertrophy. Reduced AP diameter of the thecal sac and CSF effacement with prominent epidural fat encroaching likely compressing the neural elements. Bilateral neuroforamina stenosis right greater than the left side compressing the exiting nerve roots on the right side encroaching on the left side. There is fatty atrophy of the lower lumbar muscles from L4 to sacrum. No prevertebral compartment hematoma, mass or fluid collection. Multifocal hyperintense T2 lesions in the left kidney. MR/MR lumbar spine wo con IMPRESSION: Multilevel lumbar spondylosis more conspicuous at L5-S1 and to a lesser extent L4-5 and L3-4 levels likely compressing the neural elements of the thecal sac and exiting nerve roots at L5-S1. 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 Osteopenia versus osteoporosis. Cystic lesions left kidney. Electronically signed by: Dada Armenta MD 02/24/2024 12:52 PM EST Assessment & Plan Assessment & Plan (1) Lumbar disc herniation with radiculopathy: Code(s): M51.16 - Intervertebral disc disorders with radiculopathy, lumbar region Category: Medical Plan We talked about safe exercises for to do it home and to start slow and small if she was going to resume the [facility]. She is aware of the red flags watch out for. Assessment and plan discussed with patient, and patient was agreeable. All questions were answered thoroughly. I can follow her once a year, call sooner if needed. Veronica Rios MD, DARRELL Board Certified, [place] [employer] and Rehabilitation (ABPMR) Board Certified, [place] [employer] Electrodiagn[employer] (ABEM) Coding Level of Care Code Est Pt Level 3 (25647) Diagnoses Lumbar disc herniation with radiculopathy M51.16
== END 2024-10-06 10:45 | disposition home or self-care (01) ==
LOC: HO.HOS 09:55
PROVIDERS: PCP Internal Medicine; Visit Provider Physical Medicine & Rehabilitation
DX: M51.16 Intervertebral disc disorders with radiculopathy, lumbar region (principal)
CPT/HCPCS: 99213

== ENCOUNTER → 2024-10-06 09:54 | Outpatient (BNVA) | payer MEDICARE, SELFPAY | PROVIDERS: PCP Internal Medicine; Visit Provider Physical Medicine & Rehabilitation | DX: M51.16 Intervertebral disc disorders with radiculopathy, lumbar region (principal) | CPT/HCPCS: 99212 ==

== ENCOUNTER 2024-11-01 12:56 | Outpatient (AMB) | payer MEDICARE, SELFPAY ==
[2024-11-01 13:17] VITALS: BP 124/56; PULSE 67; BMI 24.0
--- NOTE | 2024-11-01 13:17 | MHC.OFFVIS ---
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 Accompanied by: Self / Same As Patient Allergies propranolol (From Inderal [place]) Allergy (Verified 10/06/24 10:11) Nightmare Atenolol Allergy (Uncoded 09/12/24 11:34) Fatigued Medication List - Last Reconciled 11/01/24 by Lloyd Chacon MD amiodarone 200 mg PO DAILY amlodipine 2.5 mg PO DAILY 90 days apixaban (Eliquis) 5 mg PO BID atorvastatin 10 mg PO DAILY 90 days escitalopram oxalate 5 mg PO DAILY levothyroxine 50 mcg PO DAILY 90 days lorazepam (Ativan) 1 mg PO BEDTIME PRN metoprolol succinate ER 50 mg PO DAILY pantoprazole 40 mg PO DAILY 90 days HPI Comments Details: Pleasant 89 year female who is here for palpitations. She has been experiencing palpitations for few months but there were infrequent and happening 1 time a month. We will last for short period but recently she had an episode which was for approximately 5-6 hours. She felt her heart was racing and she was also feeling pulsations in her neck. She has no chest pain or shortness of breath. She has background of hypertension and hypothyroidism. Her blood pressure in the office is elevated but she is saying that her blood pressure at home is usually low. I have advised her to check her blood pressure and keep a log. Today she returns for follow-up. Again her blood pressure in the office is elevated. Her home readings are anywhere from 110 to 120s in the afternoon by her report. She is taking metoprolol succinate 100 mg daily and hydrochlorothiazide 50 mg daily. She is denying any palpitations. Cardiac event monitor did not show any significant arrhythmia. 11/01/2024: She is here for follow-up. She had Holter monitor in August 2024 which showed episodes of atrial fibrillation. She also had an echocardiogram which showed [id number] mitral valve regurgitation, moderate tricuspid regurgitation, grade 2 diastolic dysfunction with elevated left ventricular filling pressures and severe pulmonary hypertension with mild right atrial pressure elevation. She is denying any significant shortness of breath with activities but does get some palpitations and tachycardia. She is denying any persistent edema, orthopnea or PND. Blood pressure control is good. She is currently on amiodarone and apixaban. She was diagnosed with atrial fibrillation in August 2024 Holter monitor. [facility] Medical History Advanced care planning/counseling discussion DNR (do not resuscitate) (~09/12/24) DNI (do not intubate) (~09/12/24) Abnormal echocardiogram Moderate tricuspid regurgitation Moderate mitral regurgitation Severe pulmonary hypertension Tachycardia Serum calcium elevated Elevated parathyroid hormone Breast cancer Surgical History History of colon resection History of hysterectomy History of modified radical mastectomy of left breast Family History Mother No problems noted. Father No problems noted. Social History Housing: House Alcohol intake: current Alcohol intake frequency: a few times a week Alcohol type: wine Patient Tobacco Use Status: Never used Tobacco service: No Current occupational status: retired Cognitive needs: No Hearing needs: No Vision needs: Yes (rx glasses) Review of Systems Const Denies chills, Denies fatigue, Denies fever(s), Denies frequent falls, Denies weakness, Denies weight gain and Denies weight loss ENT Denies dizziness Card Denies chest pain, Denies leg edema, Denies lightheadedness, Denies palpitations, Denies dyspnea and Denies dyspnea on exertion Resp Denies cough, Denies dyspnea and Denies dyspnea on exertion GI Denies hematochezia Musc Denies abnormal gait, Denies muscle weakness, Denies numbness, Denies radiating pain into limb and Denies tingling Neuro Denies abnormal gait, Denies dizziness, Denies frequent falls, Denies numbness, Denies tingling and Denies weakness Endo Denies fatigue and Denies palpitations Physical Exam Vital Signs: Last Vital Signs Pulse 67 11/01/24 13:17 BP 124/56 L 11/01/24 13:17 BMI result Body Mass Index 24.0 GENERAL APPEARANCE: in no acute distress, pleasant. NECK: no carotid bruit, no jugular venous distention. SKIN: no suspicious lesions, warm and dry. HEART: no murmurs, regular rate and rhythm. LUNGS: clear to auscultation bilaterally. ABDOMEN: soft, nontender. EXTREMITIES: no edema. PERIPHERAL PULSES: equal. NEUROLOGIC: No gross deficits, AAO X 3 Office Procedures EKG Details: Sinus rhythm 67 beats per minute, normal axis, septal infarct, QTC 420 milliseconds. [id number], Complete Assessment & Plan Assessment & Plan (1) Severe pulmonary hypertension: Code(s): I27.20 - Pulmonary hypertension, unspecified Category: Medical (2) Moderate mitral regurgitation: Code(s): I34.0 - Nonrheumatic mitral (valve) insufficiency Category: Medical (3) Moderate tricuspid regurgitation: Code(s): I07.1 - Rheumatic tricuspid insufficiency Category: Medical (4) Palpitations: Code(s): R00.2 - Palpitations Category: Medical (5) Essential hypertension: Code(s): I10 - Essential (primary) hypertension Category: Medical (6) Paroxysmal atrial fibrillation: Code(s): I48.0 - Paroxysmal atrial fibrillation Category: Medical (7) Therapeutic drug monitoring: Code(s): Z51.81 - Encounter for therapeutic drug level monitoring Category: Medical Plan 89-year-old lady who is here for follow-up. She was complaining of palpitations previously and had Holter monitor which showed atrial fibrillation. Due to symptomatic AFib we gave her amiodarone and she is currently on 200 mg daily. She is on Eliquis 5 mg twice a day. She takes amlodipine 2.5 mg daily and has lower extremity edema during the daytime which improves as she laid down. No orthopnea or PND. Pulmonary hypertension likely related to diastolic dysfunction and elevated filling pressures. Overall does not appear to be in heart failure and I think we continue same medications for now. Because she is on amiodarone, would check LFTs, TSH and we will also get a chest x-ray. Thank you for allowing me to participate in the care of your patient. Please feel free to contact me if you have any questions. Orders: Orders Liver Panel Today Z51.81 - Encounter for therapeutic drug level monitoring TSH reflex Free T4 Today Z51.81 - Encounter for therapeutic drug level monitoring XR chest 2V Today Z51.81 - Encounter for therapeutic drug level monitoring Coding Level of Care Code Est Pt Level 4 (66169) Diagnoses Severe pulmonary hypertension I27.20 Moderate mitral regurgitation I34.0 Moderate tricuspid regurgitation I07.1 Palpitations R00.2 Essential hypertension I10 Paroxysmal atrial fibrillation I48.0 Therapeutic drug monitoring Z51.81 CPT Codes EKG - CPT: 38756-[id number], Complete ([id number])
== END 2024-11-01 13:56 | disposition home or self-care (01) ==
LOC: HO.HCS 12:57
PROVIDERS: PCP Physician Assistant Medical; Visit Provider Internal Medicine Cardiovascular Disease
DX: I27.20 Pulmonary hypertension, unspecified (principal); I34.0 Nonrheumatic mitral (valve) insufficiency; I07.1 Rheumatic tricuspid insufficiency; R00.2 Palpitations; I10 Essential (primary) hypertension; I48.0 Paroxysmal atrial fibrillation; Z51.81 Encounter for therapeutic drug level monitoring
CPT/HCPCS: 93010; 99214

== ENCOUNTER 2024-11-01 12:56 | Outpatient (REF) | payer MEDICARE, SELFPAY ==
[2024-11-01 15:45] LABS: Alanine Aminotransferase 31 U/L (0-31); Albumin Level 4.6 g/dL (3.5-5.0); Alkaline Phosphatase 131 U/L (39-117); Aspartate Amino Transferase 29 U/L (5-31); Total Protein 7.0 g/dL (6.5-8.0)
== END 2024-11-01 12:57 | disposition home or self-care (01) ==
LOC: HO.LAB 12:56
PROVIDERS: PCP Physician Assistant Medical; Visit Provider Internal Medicine Cardiovascular Disease
DX: I27.20 Pulmonary hypertension, unspecified (principal); I34.0 Nonrheumatic mitral (valve) insufficiency; I07.1 Rheumatic tricuspid insufficiency; I10 Essential (primary) hypertension; I48.0 Paroxysmal atrial fibrillation; E03.9 Hypothyroidism, unspecified; Z79.899 Other long term (current) drug therapy; Z79.01 Long term (current) use of anticoagulants; Z51.81 Encounter for therapeutic drug level monitoring
CPT/HCPCS: 36415; 80076; 84443; 93005; 99212

== ENCOUNTER 2024-12-19 15:16 | Emergency (ER) | payer MEDICARE, SELFPAY ==
--- NOTE | ~2024-12-19 | CT_ITS ---
CLINICAL HISTORY: fall with head strike, on thinners CT head without contrast Comparison: None provided Findings: No intra-axial mass, midline shift, hydrocephalus, or acute hemorrhage. Mild heterogeneous low attenuation in the periventricular white matter. Mild cerebral atrophy. The visualized paranasal sinuses and mastoid air cells are normal. The orbits are unremarkable. There is no acute fracture. IMPRESSION: 1. Mild chronic periventricular microvascular ischemic disease. 2. Mild cerebral atrophy. 3. No acute intracranial findings. This document has been electronically signed by: Marquis Rivera MD on 12/19/2024 17:49:19
--- NOTE | 2024-12-19 15:40 | ED.GENADULT ---
HPI - General Adult General Chief complaint: Head Injury Stated complaint: Fall on Sat afternoon /Headache Time Seen by Provider: 12/19/24 17:19 Related Data Home Medications ?Medication ?Instructions ?Recorded ?Confirmed escitalopram oxalate 10 mg tablet 5 mg PO DAILY 08/29/24 11/01/24 metoprolol succinate 100 mg 50 mg PO DAILY 11/01/24 11/01/24 tablet,extended release 24 hr Previous Rx's ?Medication ?Instructions ?Recorded amlodipine 2.5 mg tablet 2.5 mg PO DAILY 90 days #90 tabs 03/28/24 lorazepam 1 mg tablet (Ativan) 1 mg PO BEDTIME PRN anxiety #30 07/21/24 tabs apixaban 5 mg tablet (Eliquis) 5 mg PO BID #180 tabs 10/04/24 amiodarone 200 mg tablet 200 mg PO DAILY #90 tabs 10/16/24 atorvastatin 10 mg tablet 10 mg PO DAILY #90 tabs 11/13/24 levothyroxine 50 mcg tablet 50 mcg PO DAILY #90 tabs 11/13/24 pantoprazole 40 mg tablet,delayed 40 mg PO DAILY #90 tabs 11/13/24 release Allergies Allergy/AdvReac Type Severity Reaction Status Date / Time propranolol (From Inderal [place]) Allergy Nightmare Verified 12/19/24 15:44 Atenolol Allergy Fatigued Uncoded 12/19/24 15:44 PMFSH Past Medical History Medical History Advanced care planning/counseling discussion DNR (do not resuscitate) (~09/12/24) DNI (do not intubate) (~09/12/24) Abnormal echocardiogram Moderate tricuspid regurgitation Moderate mitral regurgitation Severe pulmonary hypertension Tachycardia Serum calcium elevated Elevated parathyroid hormone Breast cancer Surgical History History of colon resection History of hysterectomy History of modified radical mastectomy of left breast Family History Family History Mother No problems noted. Father No problems noted. Social History Social History Housing: House Alcohol intake: current Alcohol intake frequency: a few times a week Alcohol type: wine Patient Tobacco Use Status: Never used Tobacco Advance Directives: Yes Advance Directives Information Provided: No Advance Directives on File: No Do you have a plan to hurt others: No Plan service: No Current occupational status: retired Cognitive needs: No Hearing needs: No Vision needs: Yes (rx glasses) Physical Exam ED Vital Signs: Vital Signs - 24 hr 12/19/24 15:41 12/19/24 17:26 12/19/24 18:32 Temperature 98 F 97.4 F 97.4 F Pulse Rate 76 77 83 Respiratory Rate 18 19 16 Blood Pressure 214/79 H 190/83 H 164/95 H Pulse Oximetry 98 98 99 Oxygen Delivery Method Room Air Room Air Room Air BMI result Body Mass Index 24.0 Course Course Course Narrative: This is a rapid medical exam performed by Vamsi Daniel NP: Additional HPI, ROS, PE not included below will be deferred to primary provider. Patient is an 89y/o F with paroxysmal afib on Eliquis presenting to the ED with headaches since a fall. Lost balance bending forward to tack picker a planter. Reports headaches have been mild, didn't need to take any meds, denies nausea. Plan: CT head Medical Decision Making Lab Data 12/19/24 18:10 12/19/24 18:10 Labs: Lab Results 12/19/24 Range/Units 18:10 WBC 6.4 (4.8-10.8) X10*3/uL RBC 4.79 (4.20-5.50) X10*6/uL Hgb 13.7 (12.0-16.0) g/dl Hct 42.5 (37.0-47.0) % MCV 88.7 (80.0-98.0) fL MCH 28.6 (27.0-33.0) pg MCHC 32.2 (31.0-35.0) g/dl RDW 13.6 (11.0-16.0) % Plt Count 156 L (160-400) X10*3/uL MPV 10.6 (9.4-12.3) fL Immature Gran % (Auto) 0.3 (0.0-0.4) % Neut % (Auto) 64.6 (45-73) % Lymph % (Auto) 24.6 (20-40) % [place] % (Auto) 8.0 (2-11) % Eos % (Auto) 1.4 (0-4) % Baso % (Auto) 1.1 (0-2) % Lymph # (Auto) 1.6 (1.2-4.9) X10*3/uL [place] # (Auto) 0.5 (0.1-1.2) X10*3/uL Eos # (Auto) 0.1 (0.0-0.4) X10*3/uL Baso # (Auto) 0.1 (0.0-0.2) X10*3/uL Abs Immat Gran (auto) 0.02 (0.00-0.03) X10*3/uL Absolute Neuts (auto) 4.1 (2.0-8.3) x10*3/uL Absolute Nucleated RBC 0.000 (0.0-0.012) X10*3/uL Nucleated RBC % (auto) 0.0 (0.0-0.2) /100WBC PT 14.1 H (10.9-12.4) SEC INR 1.2 H (0.9-1.1) Sodium 143 (135-145) mmol/L Potassium 5.2 H D (3.3-5.1) mmol/L Chloride 105 (96-108) mmol/L Carbon Dioxide 29 (22-29) mmol/L Anion Gap 14 (12-20) BUN 10 (9-16) mg/dL Creatinine 0.62 (0.5-1.4) mg/dL Estim Creat Clear Calc 55.2 Estimated GFR > 60 Random Glucose 104 (60-115) mg/dL Calcium 10.5 H (8.4-10.2) mg/dL Discharge Plan Discharge Clinical Impression: Head injury Patient Disposition: Home, Self-Care Instructions: Head Injury (ED) Prescriptions: No Action amiodarone 200 mg tablet 200 mg PO DAILY Qty: 90 3RF levothyroxine 50 mcg tablet 50 mcg PO DAILY Qty: 90 3RF atorvastatin 10 mg tablet 10 mg PO DAILY Qty: 90 3RF pantoprazole 40 mg tablet,delayed release (DR/EC) 40 mg PO DAILY Qty: 90 3RF amlodipine 2.5 mg tablet 2.5 mg PO DAILY 90 Days Qty: 90 1RF lorazepam [Ativan] 1 mg tablet 1 mg PO BEDTIME PRN (Reason: anxiety) Qty: 30 0RF escitalopram oxalate 10 mg tablet 5 mg PO DAILY metoprolol succinate 100 mg tablet extended release 24 hr 50 mg PO DAILY Eliquis 5 mg tablet 5 mg PO BID Qty: 180 3RF Rx Instructions: new Referrals: Radha Johnson PA-C [Primary Care Provider, Internal Medicine] - 12/21/24 Print Language: Portuguese
[2024-12-19 15:41] VITALS: BP 214/79; PULSE 76; RESP 18; TEMP 36.6; O2SAT 98; BMI 24.0
[2024-12-19 17:26] VITALS: BP 190/83; PULSE 77; RESP 19; TEMP 36.3; O2SAT 98
--- NOTE | 2024-12-19 17:57 | ED.HEATRA ---
HPI - Head Injury General Chief complaint: Head Injury Stated complaint: Fall on Sat afternoon /Headache Time Seen by Provider: 12/19/24 17:19 History of Present Illness HPI Narrative: Patient is an 89-year-old female presents today after a fall on Wednesday. Patient's tripped over a rock. Hitting the frontal area. There was no loss of consciousness there is no focal weakness there is no nausea no vomiting. Patient is on Eliquis has been compliant with her medications. No fever no chills. No diaphoresis. No headache. Related Data Home Medications ?Medication ?Instructions ?Recorded ?Confirmed escitalopram oxalate 10 mg tablet 5 mg PO DAILY 08/29/24 11/01/24 metoprolol succinate 100 mg 50 mg PO DAILY 11/01/24 11/01/24 tablet,extended release 24 hr Previous Rx's ?Medication ?Instructions ?Recorded amlodipine 2.5 mg tablet 2.5 mg PO DAILY 90 days #90 tabs 03/28/24 lorazepam 1 mg tablet (Ativan) 1 mg PO BEDTIME PRN anxiety #30 07/21/24 tabs apixaban 5 mg tablet (Eliquis) 5 mg PO BID #180 tabs 10/04/24 amiodarone 200 mg tablet 200 mg PO DAILY #90 tabs 10/16/24 atorvastatin 10 mg tablet 10 mg PO DAILY #90 tabs 11/13/24 levothyroxine 50 mcg tablet 50 mcg PO DAILY #90 tabs 11/13/24 pantoprazole 40 mg tablet,delayed 40 mg PO DAILY #90 tabs 11/13/24 release Allergies Allergy/AdvReac Type Severity Reaction Status Date / Time propranolol (From Inderal [place]) Allergy Nightmare Verified 12/19/24 15:44 Atenolol Allergy Fatigued Uncoded 12/19/24 15:44 Review of Systems Review of Systems: Positive headache Yes all other systems are reviewed and are negative [facility] Past Medical History Attestation statement: The following information was validated with the patient. Medical History Advanced care planning/counseling discussion DNR (do not resuscitate) (~09/12/24) DNI (do not intubate) (~09/12/24) Abnormal echocardiogram Moderate tricuspid regurgitation Moderate mitral regurgitation Severe pulmonary hypertension Tachycardia Serum calcium elevated Elevated parathyroid hormone Breast cancer Surgical History History of colon resection History of hysterectomy History of modified radical mastectomy of left breast Family History Family History Mother No problems noted. Father No problems noted. Social History Social History Housing: House Alcohol intake: current Alcohol intake frequency: a few times a week Alcohol type: wine Patient Tobacco Use Status: Never used Tobacco Advance Directives: Yes Advance Directives Information Provided: No Advance Directives on File: No Do you have a plan to hurt others: No Plan service: No Current occupational status: retired Cognitive needs: No Hearing needs: No Vision needs: Yes (rx glasses) Physical Exam Exam: Exam: Appearance: Alert. Oriented X3. No acute distress. Eyes: Pupils equal, round and reactive to light. ENT: Pharynx normal. Neck: Normal inspection. Neck supple. No lymph nodes noted. No crepitus CVS: Normal heart rate and rhythm. Pulses normal. Normal S1 and S2 Respiratory: No respiratory distress. Breath sounds normal. No Wheezing. No rales Abdomen: Soft and nontender. No rigidity. No distention. good BS x4 Skin: Skin warm and dry. Normal skin color. Normal skin turgor. Extremities: No lower extremity edema. Neurovascular intact to all extremities. No Lacerations. No Rash Neuro: Oriented X 3. No motor deficit. No sensory deficit. Moving all extermities. No slurred speech Vital Signs: Vital Signs: Last Vital Signs Temp 97.4 F 12/19/24 18:32 Pulse 83 12/19/24 18:32 Resp 16 12/19/24 18:32 BP 164/95 H 12/19/24 18:32 Pulse Ox 99 12/19/24 18:32 O2 Del Method Room Air 12/19/24 18:32 BMI result Body Mass Index 24.0 Medical Decision Making Medical Decision Making MDM Narrative: CT head by my interpretation showed no acute bleeding. Patient's electrolytes are baseline. Hemoglobin is 13.7. Will discharge patient home head injury precaution in stable condition. Differential Diagnosis Differential Diagnoses: The differential diagnosis associated with the presentation includes Intracranial bleed, mass, fracture Admission/Observation Consideration of admission/observation: Escalation of care including admission/observation considered Lab Data MDM Lab Attestation statement: I reviewed the patient's lab results. 12/19/24 18:10 12/19/24 18:10 Labs: Lab Results 12/19/24 Range/Units 18:10 WBC 6.4 (4.8-10.8) X10*3/uL RBC 4.79 (4.20-5.50) X10*6/uL Hgb 13.7 (12.0-16.0) g/dl Hct 42.5 (37.0-47.0) % MCV 88.7 (80.0-98.0) fL MCH 28.6 (27.0-33.0) pg MCHC 32.2 (31.0-35.0) g/dl RDW 13.6 (11.0-16.0) % Plt Count 156 L (160-400) X10*3/uL MPV 10.6 (9.4-12.3) fL Immature Gran % (Auto) 0.3 (0.0-0.4) % Neut % (Auto) 64.6 (45-73) % Lymph % (Auto) 24.6 (20-40) % [place] % (Auto) 8.0 (2-11) % Eos % (Auto) 1.4 (0-4) % Baso % (Auto) 1.1 (0-2) % Lymph # (Auto) 1.6 (1.2-4.9) X10*3/uL [place] # (Auto) 0.5 (0.1-1.2) X10*3/uL Eos # (Auto) 0.1 (0.0-0.4) X10*3/uL Baso # (Auto) 0.1 (0.0-0.2) X10*3/uL Abs Immat Gran (auto) 0.02 (0.00-0.03) X10*3/uL Absolute Neuts (auto) 4.1 (2.0-8.3) x10*3/uL Absolute Nucleated RBC 0.000 (0.0-0.012) X10*3/uL Nucleated RBC % (auto) 0.0 (0.0-0.2) /100WBC PT 14.1 H (10.9-12.4) SEC INR 1.2 H (0.9-1.1) Sodium 143 (135-145) mmol/L Potassium 5.2 H D (3.3-5.1) mmol/L Chloride 105 (96-108) mmol/L Carbon Dioxide 29 (22-29) mmol/L Anion Gap 14 (12-20) BUN 10 (9-16) mg/dL Creatinine 0.62 (0.5-1.4) mg/dL Estim Creat Clear Calc 55.2 Estimated GFR > 60 Random Glucose 104 (60-115) mg/dL Calcium 10.5 H (8.4-10.2) mg/dL Independent Interpretation I performed an independent interpretation of an: CT Scan (CT head was grossly negative) Radiology Impression Discussion of test interpretation with radiology: I have reviewed the radiologist's reading. Independent Historian Clinical information obtained from an independent historian. History obtained from or confirmed by: Spouse Chronic Conditions Patient?s care impacted by: Other (History of being on blood thinners) Social Determinants Patient?s care significantly limited by Social Determinants of Health including: Problems related to primary support group Discharge Plan Discharge Clinical Impression: Head injury Patient Disposition: Home, Self-Care Instructions: Head Injury (ED) Prescriptions: No Action amiodarone 200 mg tablet 200 mg PO DAILY Qty: 90 3RF levothyroxine 50 mcg tablet 50 mcg PO DAILY Qty: 90 3RF atorvastatin 10 mg tablet 10 mg PO DAILY Qty: 90 3RF pantoprazole 40 mg tablet,delayed release (DR/EC) 40 mg PO DAILY Qty: 90 3RF amlodipine 2.5 mg tablet 2.5 mg PO DAILY 90 Days Qty: 90 1RF lorazepam [Ativan] 1 mg tablet 1 mg PO BEDTIME PRN (Reason: anxiety) Qty: 30 0RF escitalopram oxalate 10 mg tablet 5 mg PO DAILY metoprolol succinate 100 mg tablet extended release 24 hr 50 mg PO DAILY Eliquis 5 mg tablet 5 mg PO BID Qty: 180 3RF Rx Instructions: new Referrals: Radha Johnson PA-C [Primary Care Provider, Internal Medicine] - 12/21/24 Print Language: Hungarian
[2024-12-19 18:15] LABS: MANUAL DIFF FLAG NO
[2024-12-19 18:16] LABS: Hematocrit 42.5 % (37.0-47.0); Hemoglobin 13.7 g/dl (12.0-16.0); Imm Gran Abs Auto 0.02 X10*3/uL (0.00-0.03); Imm Gran Pct Auto 0.3 % (0.0-0.4); Lymphocytes Absolute Auto 1.6 X10*3/uL (1.2-4.9); Mean Corpuscular HGB Conc 32.2 g/dl (31.0-35.0); Mean Corpuscular Hemoglobin 28.6 pg (27.0-33.0); Mean Corpuscular Volume 88.7 fL (80.0-98.0); NRBC Abs Auto 0.000 X10*3/uL (0.0-0.012); NRBC Pct Auto 0.0 /100WBC (0.0-0.2); Platelet Count 156 X10*3/uL (160-400); Red Blood Count 4.79 X10*6/uL (4.20-5.50); White Blood Count 6.4 X10*3/uL (4.8-10.8)
[2024-12-19 18:22] LABS: INTERNATIONAL NORM RATIO 1.2 (0.9-1.1); Prothrombin Time 14.1 SEC (10.9-12.4)
[2024-12-19 18:30] LABS: Anion Gap 14 (12-20); Blood Urea Nitrogen 10 mg/dL (9-16); Calcium 10.5 mg/dL (8.4-10.2); Carbon Dioxide 29 mmol/L (22-29); Chloride 105 mmol/L (96-108); Creatinine Clr Calc Pharmacy 55.2; Estimated Glomerular Filt Rate > 60; Potassium 5.2 mmol/L (3.3-5.1); Sodium 143 mmol/L (135-145)
[2024-12-19 18:32] VITALS: BP 164/95; PULSE 83; RESP 16; TEMP 36.3; O2SAT 99
[2024-12-19 19:30] VITALS: BP 161/75; PULSE 76; RESP 17; TEMP 36.3; O2SAT 99
== END 2024-12-19 19:32 | disposition home or self-care (01) ==
PROVIDERS: Emergency Provider Emergency Medicine Emergency Medical Services; PCP Physician Assistant Medical
DX: S09.90XA Unspecified injury of head, initial encounter (principal); W19.XXXA Unspecified fall, initial encounter; Y93.9 Activity, unspecified; Y92.9 Unspecified place or not applicable; R51.9 Headache, unspecified; I48.0 Paroxysmal atrial fibrillation; Z79.01 Long term (current) use of anticoagulants; I27.20 Pulmonary hypertension, unspecified
CPT/HCPCS: 36415; 70450; 80048; 85025; 85610; 99284

== ENCOUNTER → 2024-12-19 15:42 | Outpatient (BNV) | payer MEDICARE, SELFPAY | PROVIDERS: Emergency Provider Emergency Medicine Emergency Medical Services; PCP Physician Assistant Medical; Visit Provider Radiology Diagnostic Radiology | DX: S09.90XA Unspecified injury of head, initial encounter (principal); I67.82 Cerebral ischemia; G31.9 Degenerative disease of nervous system, unspecified; W01.10XA Fall on same level from slipping, tripping and stumbling with subsequent striking against unspecified object, initial encounter | CPT/HCPCS: 70450 ==

== ENCOUNTER 2024-12-27 11:07 | Outpatient (AMB) | payer MEDICARE, SELFPAY ==
[2024-12-27 11:08] VITALS: BP 195/81; PULSE 67; TEMP 36.4; O2SAT 98; BMI 23.9
--- NOTE | 2024-12-27 11:08 | MHC.PC.OV ---
Vital Signs 12/27/24 11:08 12/27/24 11:52 Height 5 ft 4 in Weight 139 lb BMI 23.9 BP 195/81 H 177/80 H Blood Pressure Location Rt brachial Position Sitting Pulse 67 Pulse Source Pulse Oximeter Temp 97.6 F Temp Source Temporal Artery Scan Pulse Oximetry (%) 98 Oxygen Delivery Method Room Air Intake Visit Reasons: Emergency room follow up Accompanied by: Self / Same As Patient Allergies propranolol (From Inderal [place]) Allergy (Verified 12/27/24 11:21) Nightmare Atenolol Allergy (Uncoded 12/27/24 11:21) Fatigued Medication List - Last Reconciled 12/27/24 by Radha Johnson PA-C amiodarone 200 mg PO DAILY amlodipine 5 mg PO DAILY amlodipine 5 mg PO DAILY apixaban (Eliquis) 5 mg PO BID atorvastatin 10 mg PO DAILY escitalopram oxalate 5 mg PO DAILY levothyroxine 50 mcg PO DAILY lorazepam (Ativan) 1 mg PO BEDTIME PRN metoprolol succinate ER 50 mg PO DAILY pantoprazole 40 mg PO DAILY Tobacco use date assessed: 12/27/24 Fall risk assessment: 1 Fall in past year Last assessed Fall Risk: 12/27/24 Dental Screening Dental Screen Date: 12/27/24 Did you have a dental visit in the last 12 months?: Yes HPI Emergency room follow up HPI Details The patient is an 89-year-old female presenting with a recent mechanical fall resulting in a head injury. The fall occurred on December 16, 2024, while she was standing in the garden, leading to a head impact without loss of consciousness, focal weakness, nausea, or vomiting. She was on Eliquis at the time, prompting a visit to the emergency department for evaluation. A CT scan of the brain showed no acute bleeding, and blood work indicated baseline electrolytes and a hemoglobin level of 13.7 g/dL. She was discharged with head injury precautions and reported a bruise on the left frontal area with minor cuts. The patient has a history of hypertension, which was noted to be elevated during the emergency visit and upon arrival at the clinic. She is currently on amlodipine, metoprolol, and amiodarone, with a plan to adjust the amlodipine dosage to better control her blood pressure. She also reported a history of a herniated disc from a previous injury during exercise, which has resulted in intermittent numbness in the right foot, affecting her balance and walking. The patient experiences occasional vertigo, which may be related to medication changes or inner ear issues, and was advised on potential physical therapy or medication options. Social History - Exercise: Previously engaged in senior exercise classes, resulting in a herniated disc. [facility] Medical History (Updated 12/27/24 @ 11:58 by Radha Johnson PA-C) Vertigo Fall Hospital discharge follow-up Advanced care planning/counseling discussion DNR (do not resuscitate) (~09/12/24) DNI (do not intubate) (~09/12/24) Abnormal echocardiogram Moderate tricuspid regurgitation Moderate mitral regurgitation Severe pulmonary hypertension Tachycardia Serum calcium elevated Elevated parathyroid hormone Breast cancer Surgical History History of colon resection History of hysterectomy History of modified radical mastectomy of left breast Family History Mother No problems noted. Father No problems noted. Social History Housing: House Alcohol intake: current Alcohol intake frequency: a few times a week Alcohol type: wine Patient Tobacco Use Status: Never used Tobacco service: No Current occupational status: retired Cognitive needs: No Hearing needs: No Vision needs: Yes (rx glasses) Questionnaire PHQ-9 Over the last 2 weeks, how often have you been bothered by any of the following problems? 1. Little interest or pleasure in doing things: not at all 2. Feeling down, depressed, or hopeless: not at all 3. Trouble falling or staying asleep, or sleeping too much: not at all 4. Feeling tired or having little energy: not at all 5. Poor appetite or overeating: not at all 6. Feeling bad about yourself - or that you are a failure or have let yourself or your family down: not at all 7. Trouble concentrating on things, such as reading the newspaper or watching television: not at all 8. Moving or speaking so slowly that other people could have noticed. Or the opposite - being so fidgety or restless that you have been moving around a lot more than usual: not at all 9. Thoughts that you would be better off or of hurting yourself in some way: not at all Total score: 0 Depression Screening Interpretation: Negative Depression Screening Done: Yes 55258 - PHQ-9 Billing: Yes Source: Developed by Drs. Abdelrahman Jay, Shannan Duarte, Agustin Mario and colleagues, with an educational lata from [employer]. Thrive Questionnaire Date Thrive assessed: 12/27/24 I am a: Patient What is your living situation today?: I have a steady place to live Within the past 12 months, did the food you bought not last and you didn't have the money to get more?: Never true Within the past 12 months, did you worry whether your food would run out before you got money to buy more?: Never true Do you have trouble paying for medicines?: No Do you have trouble getting transportation to medical appointments?: No Do you have trouble paying your heating and electricity bill?: No Do you have trouble taking care of your child, family member or friend?: No Do you have trouble with day-to-day activities such as bathing, preparing meals, shopping, managing finances, etc.?: No Are you currently unemployed and looking for a job?: No Are you interested in more education?: No THRIVE Score: 0 AUDIT C Alcohol Use Questionnaire (AUDIT-C) 1. How often do you have a drink containing alcohol?: 4 or more times a week 2. How many drinks containing alcohol do you have on a typical day when you are drinking?: 1 or 2 3. How often do you have six or more drinks on one occasion?: Never Total Score: 4 Score Reviewed/Action Taken: Yes (score reviewed ) LORENZA-7 AMB Questionnaire LORENZA-7 Date LORENZA - 7 assessed: 12/27/24 Feeling nervous, anxious, or on edge: 0 = Not at all Not being able to stop or control worryin = Not at all Worrying too much about different things: 0 = Not at all Trouble relaxin = Not at all Being so restless that it is hard to sit still: 0 = Not at all Becoming easily annoyed or irritable: 0 = Not at all Feeling afraid as if something awful might happen: 0 = Not at all Total LORENZA-7 score (0-4 normal; 5-9 mild; 10-14 moderate; 15-21 severe): 0 Source: Developed by Drs. Abdelrahman Jay, Shannan Duarte, Agustin Mario and colleagues, with an educational lata from [employer]. LORENZA-7 Assessment Billing LORENZA-7 Assessment Tool: LORENZA-7 Assessment 52014 Review of Systems Const Details: - Neurological: Reports occasional vertigo, intermittent numbness in the right foot. Denies loss of consciousness, focal weakness, nausea, or vomiting. - Cardiovascular: Reports elevated blood pressure. Denies chest pain or palpitations. All systems reviewed & are unremarkable except as noted in HPI and below Physical exam (Primary Care) Vital Signs: Last Vital Signs Temp 97.6 F 12/27/24 11:08 Pulse 67 12/27/24 11:08 BP 195/81 H 12/27/24 11:08 Pulse Ox 98 12/27/24 11:08 Oxygen Delivery Method Room Air 12/27/24 11:08 Care Plan Goal for BP management: <140/90 patient to continue amiodarone 200 mg, metoprolol extended release 50 mg will increase amlodipine to 2.5 mg to 5 mg patient will return in 1 week BMI result Body Mass Index 23.9 Normal BMI Tobacco/Smoking Status: Tobacco use Status Tobacco use date assessed 12/27/24 12/27/24 11:15 Patient Tobacco Use Status Never used Tobacco 12/27/24 11:15 PHQ-9: PHQ-9 Score PHQ-9: Total score 0 12/27/24 11:15 Depression Screening Interpretation: Negative Thrive Assessment: Date of Thrive Assessment Date Thrive assessed 12/27/24 12/27/24 11:15 Const Other: Appearance: Alert. Oriented X3. No acute distress. Head: Normal external exam. Normocephalic. Atraumatic. Bruise noted on the left frontal area, with a couple of small cuts. Eyes: Pupils are equal, round, and reactive to light. Extraocular movements intact. Conjunctiva and sclera normal. Eyelids normal. Throat: Pharynx normal. Uvula midline. Moist mucous membranes. Neck: Normal inspection. Neck supple. Full range of motion. No adenopathy. Thyroid Normal. No meningeal signs. No neck mass noted. Cardiovascular: Normal heart rate and rhythm. Heart sound normal. No murmurs noted. Pulses normal throughout. Blood pressure noted to be high at 177/80. Respiratory: No respiratory distress. Painless inspiration. Back: Full range of motion noted. Skin: Skin warm and dry. Normal skin color. Normal skin turgor. No rashes/lesions/lacerations noted. Extremities: Extremities exhibit normal range of motion. Neuro: Oriented X 3. No motor deficit. No sensory deficit. Reflexes normal. Office Procedures Flu Questionnaire Does the patient have a severe egg allergy?: No Does the patient have severe life threatening allergies?: No Does the patient have a fever or illness today?: No Has the patient ever had Guillain-[place] Syndrome?: No Has the patient ever had any past reaction to a flu shot?: No Immunizations Fluarix [id number] (PF) 45 mcg (15 mcg x 3)/0.5 mL IM syringe Performing Provider: Radha Johnson PA-C [facility] Documented (not given) by: Ophelia Chavez CMA on 12/27/24 11:18 Reason Not Given: Received Previously Results Reviewed Results Reviewed: - Imaging: CT scan of the brain showed no acute bleeding or processes. - Labs: Electrolytes at baseline, hemoglobin 13.7 g/dL. Coding Level of Care Code Est Pt Level 4 (28553) Complex EM visit Add On G2211 Diagnoses Hospital discharge follow-up Z09 Fall W19.XXXA Essential hypertension I10 Lumbar disc herniation with radiculopathy M51.16 Vertigo R42 Additional Codes LORENZA-7 Assessment Billing - LORENZA-7 Assessment Tool: LORENZA-7 Assessment 64478 ([id number]) PHQ-9 - 64784 - PHQ-9 Billing: Yes ([id number]) Assessment & Plan Assessment & Plan (1) Hospital discharge follow-up: Code(s): Z09 - Encounter for follow-up examination after completed treatment for conditions other than malignant neoplasm Category: Medical (2) Fall: Code(s): W19.XXXA - Unspecified fall, initial encounter Category: Medical Plan: The patient experienced a mechanical fall on December 16, 2024, resulting in a head injury. She was evaluated in the emergency department, where a CT scan showed no acute bleeding. She was discharged with head injury precautions and advised to monitor for any new symptoms. (3) Essential hypertension: Code(s): I10 - Essential (primary) hypertension Category: Medical Plan: The patient's hypertension was noted to be elevated during the emergency visit and clinic visit. She is currently on amlodipine, metoprolol, and amiodarone. The plan is to increase the amlodipine dosage to better control her blood pressure and reassess in a week. (4) Lumbar disc herniation with radiculopathy: Code(s): M51.16 - Intervertebral disc disorders with radiculopathy, lumbar region Category: Medical Plan: The patient has a history of a herniated disc from a previous injury during exercise, resulting in intermittent numbness in the right foot. This affects her balance and walking. Management includes monitoring symptoms and considering physical therapy if symptoms persist. (5) Vertigo: Code(s): R42 - Dizziness and giddiness Category: Medical Plan: The patient experiences occasional vertigo, possibly related to medication changes or inner ear issues. She was advised on potential physical therapy or medication options, such as meclizine, if symptoms persist. Plan Plan Patient was informed and verbally consented to the use of an ambient scribe for clinic note documentation during this visit. 1. Mechanical Fall The patient experienced a mechanical fall on December 16, 2024, resulting in a head injury. She was evaluated in the emergency department, where a CT scan showed no acute bleeding. She was discharged with head injury precautions and advised to monitor for any new symptoms. 2. Hypertension The patient's hypertension was noted to be elevated during the emergency visit and clinic visit. She is currently on amlodipine, metoprolol, and amiodarone. The plan is to increase the amlodipine dosage to better control her blood pressure and reassess in a week. 3. Herniated Disc The patient has a history of a herniated disc from a previous injury during exercise, resulting in intermittent numbness in the right foot. This affects her balance and walking. Management includes monitoring symptoms and considering physical therapy if symptoms persist. 4. Vertigo The patient experiences occasional vertigo, possibly related to medication changes or inner ear issues. She was advised on potential physical therapy or medication options, such as meclizine, if symptoms persist. During the visit, we discussed the patient's recent fall and head injury, emphasizing the importance of monitoring for any new symptoms. We also reviewed her hypertension management, deciding to increase her amlodipine dosage and reassess in a week. Additionally, we addressed her history of a herniated disc and vertigo, considering physical therapy and medication options if symptoms persist. Orders: Orders Influenza [id number] Immunization Today Z23 - Encounter for immunization Medications: Refilled lorazepam (Ativan) 1 mg PO BEDTIME PRN 30 tabs 0RF anxiety Patient Instructions: - Monitor for any new symptoms following the head injury and seek medical attention if necessary. - Take two amlodipine tablets daily and return for a follow-up in a week to reassess blood pressure. - Consider physical therapy if vertigo or balance issues persist.
[2024-12-27 11:52] VITALS: BP 177/80
== END 2024-12-27 11:44 | disposition home or self-care (01) ==
LOC: HO.HMCSH 11:07
PROVIDERS: PCP Physician Assistant Medical; Visit Provider Physician Assistant Medical
DX: Z09 Encounter for follow-up examination after completed treatment for conditions other than malignant neoplasm (principal); W19.XXXA Unspecified fall, initial encounter; I10 Essential (primary) hypertension; M51.16 Intervertebral disc disorders with radiculopathy, lumbar region; R42 Dizziness and giddiness; Z23 Encounter for immunization

== ENCOUNTER → 2024-12-27 11:07 | Outpatient (BNVA) | payer MEDICARE, SELFPAY | PROVIDERS: PCP Physician Assistant Medical; Visit Provider Physician Assistant Medical | DX: I10 Essential (primary) hypertension (principal); M51.16 Intervertebral disc disorders with radiculopathy, lumbar region; R42 Dizziness and giddiness; Z09 Encounter for follow-up examination after completed treatment for conditions other than malignant neoplasm; Z28.89 Immunization not carried out for other reason; Z79.01 Long term (current) use of anticoagulants; Z91.81 History of falling | CPT/HCPCS: 90471; 96127; 99212 ==

== ENCOUNTER 2024-12-29 11:36 | Outpatient (AMB) | payer MEDICARE, SELFPAY ==
--- NOTE | 2024-12-29 11:37 | AM.OFFWIN_ITS ---
Intake Vital Signs 12/29/24 11:38 Height 5 ft 4 in Weight 138 lb BMI 23.7 BP 180/76 H Blood Pressure Location Rt brachial Position Sitting Pulse 64 Pulse Source Pulse Oximeter Temp 97.6 F Temp Source Oral Pulse Oximetry (%) 98 Oxygen Delivery Method Room Air Intake Visit Reasons: EP-b/l ears wax removal Intake Note: EP has trouble hearing mostly with the left ear for a couple of months however she is experiencing issue with the right ear as well. Patient Tobacco Use Status: Never used Tobacco Allergies propranolol (From Inderal [place]) Allergy (Verified 12/29/24 11:46) Nightmare Atenolol Allergy (Uncoded 12/27/24 11:21) Fatigued Do you need a note to return to daycare/school/sports/work: No HPI HPI Comments History of Present Illness Details History - The patient is an 89-year-old female p resenting with difficulty hearing and elevated blood pressure. - The patient reports difficulty hearing , particularly in the left ear, with no associated pain. She has noticed the need to increase the volume on the television and difficulty understanding conversations in noisy environments. - The patient has a history of cerumen i mpaction, particularly in the right ear, which was confirmed during the visit. - Hypertension: The patient has a histor y of hypertension, currently managed with amlodipine and metoprolol, she is taking as prescribed, which was recently increased to 10 mg. Her blood pressure remains elevated at 180/76 mmHg. She is under the care of her PCP and has a follow-up appointment scheduled in one week with her nurse navigator and 2 weeks with her PCP. Review of Systems - Ears: Reports difficulty hearing, part icularly in the left ear. Denies pain or discomfort. - Cardiovascular: Reports history of hyp ertension. Denies chest pain or palpitations. All systems reviewed and are unremarkable except as noted in HPI Physical Exam General: Cooperative, healthy appearing, comfortable, no acute distress and well developed Orientation: Patient oriented x3 Limitations: No limitations Head: Normal to inspection Ears: External ears normal bilaterally, TM's with impacted cerumen in the right ear Face and sinus: Normal facial exam Neck: Normal visual inspection and Yes full ROM Respiratory: Normal respiratory effort and able to speak in complete sentences. Skin: No rashes or lesions noted Neuro: Patient oriented x3 Extremities: normal to inspection [facility] Medical History (Updated 12/29/24 @ 12:11 by Sherry Crowe PA-C) Vertigo [facility] Hospital discharge follow-up Advanced care planning/counseling discussion DNR (do not resuscitate) (~09/12/24) DNI (do not intubate) (~09/12/24) Abnormal echocardiogram Moderate tricuspid regurgitation Moderate mitral regurgitation Severe pulmonary hypertension Tachycardia Serum calcium elevated Elevated parathyroid hormone Breast cancer Surgical History History of colon resection History of hysterectomy History of modified radical mastectomy of left breast Family History Mother No problems noted. Father No problems noted. Social History Housing: House Alcohol intake: current Alcohol intake frequency: a few times a week Alcohol type: wine Patient Tobacco Use Status: Never used Tobacco service: No Current occupational status: retired Cognitive needs: No Hearing needs: No Vision needs: Yes (rx glasses) Physical Exam Vital Signs: Last Vital Signs Temp 97.6 F 12/29/24 11:38 Pulse 64 12/29/24 11:38 BP 180/76 H 12/29/24 11:38 Pulse Ox 98 12/29/24 11:38 Oxygen Delivery Method Room Air 12/29/24 11:38 BMI result Body Mass Index 23.7 Office Procedures Cerumen Removal From which ear canal was the cerumen removed: right Removal: cerumen loop/spoon Notes: patient tolerated procedure well, no complications and ear canal clear [id number] Wax Removal by Spoon/Curette Assessment & Plan Assessment & Plan (1) Impacted cerumen of right ear: Code(s): H61.21 - Impacted cerumen, right ear Plan: - Cerumen was removed from the right ear, with patient reporting improving hearing. - If hearing difficulties persist, consider referral to an appeals and generalist clerk for further evaluation. Patient was informed and verbally consented to the use of an ambient scribe for clinic note documentation during this visit. (2) Elevated blood pressure reading with diagnosis of hypertension: Code(s): I10 - Essential (primary) hypertension Plan: - Continue current management. Follow-up with scheduled appointments. Orders: Orders AMB Cerumen Removal Today H61.21 - Impacted cerumen, right ear Coding Level of Care Code Est Pt Level 3 (09150) Diagnoses Impacted cerumen of right ear H61.21 Elevated blood pressure reading with diagnosis of hypertension I10 CPT Codes Office Procedure - CPT: 85291-Xzl Wax Removal by Spoon/Curette ([id number])
[2024-12-29 11:38] VITALS: BP 180/76; PULSE 64; TEMP 36.4; O2SAT 98; BMI 23.7
== END 2024-12-29 12:25 | disposition home or self-care (01) ==
PROVIDERS: PCP Physician Assistant Medical; Visit Provider Physician Assistant
DX: I10 Essential (primary) hypertension (principal); H61.21 Impacted cerumen, right ear

== ENCOUNTER → 2024-12-29 11:36 | Outpatient (BNVA) | payer MEDICARE, SELFPAY | PROVIDERS: PCP Physician Assistant Medical; Visit Provider Physician Assistant | DX: H61.21 Impacted cerumen, right ear (principal); I10 Essential (primary) hypertension | CPT/HCPCS: 69210; 99212 ==

== ENCOUNTER → 2025-01-04 10:00 | Outpatient (BNVA) | payer MEDICARE, SELFPAY | PROVIDERS: PCP Physician Assistant Medical | DX: Z01.30 Encounter for examination of blood pressure without abnormal findings (principal) | CPT/HCPCS: 99211 ==

== ENCOUNTER 2025-01-11 10:57 | Outpatient (AMB) | payer MEDICARE, SELFPAY ==
[2025-01-11 11:06] VITALS: BP 152/67; PULSE 60; RESP 16; TEMP 36.7; O2SAT 99; BMI 23.5
--- NOTE | 2025-01-11 11:06 | A.OFFPC_ITS ---
Vital Signs 01/11/25 11:06 01/11/25 11:29 Height 5 ft 4.25 in Weight 138 lb BMI 23.5 BP 152/67 H 137/62 Blood Pressure Location Rt brachial Position Sitting Respiration 16 Pulse 60 Pulse Source Pulse Oximeter Temp 98.0 F Temp Source Temporal Artery Scan Pulse Oximetry (%) 99 Oxygen Delivery Method Room Air Intake Visit Reasons: BP follow up Patient Coordinator Required: No Accompanied by: Self / Same As Patient Allergies propranolol (From Inderal [place]) Allergy (Verified 01/11/25 11:29) Nightmare Atenolol Allergy (Uncoded 01/11/25 11:29) Fatigued Medication List - Last Reconciled 01/11/25 by Radha Johnson PA-C amiodarone 200 mg PO DAILY amlodipine 10 mg PO DAILY apixaban (Eliquis) 5 mg PO BID atorvastatin 10 mg PO DAILY escitalopram oxalate 5 mg PO DAILY levothyroxine 50 mcg PO DAILY lorazepam (Ativan) 1 mg PO BEDTIME PRN metoprolol succinate ER 50 mg PO DAILY pantoprazole 40 mg PO DAILY Tobacco use date assessed: 12/27/24 Dental Screening Dental Screen Date: 12/27/24 HPI BP follow up HPI Details The patient is an 89-year-old female presenting for a blood pressure check. She reports that her blood pressure fluctuates, with an in-office reading of 157 mmHg, while home readings have been as high as 150 mmHg and as low as 119 mmHg. Her reading this morning at home was 137/62 mmHg. She reports feeling a little tired. Approximately two weeks ago, her dose of amlodipine was increased to 10 mg. Her current antihypertensive medications include amlodipine 10 mg, and metoprolol 50 mg. She also takes amiodarone 200 mg daily. Social History - Diet: The patient was advised to be mi ndful of salt intake, especially around the holidays. [facility] Medical History [facility] discharge follow-up Advanced care planning/counseling discussion DNR (do not resuscitate) (~09/12/24) DNI (do not intubate) (~09/12/24) Abnormal echocardiogram Moderate tricuspid regurgitation Moderate mitral regurgitation Severe pulmonary hypertension Tachycardia Serum calcium elevated Elevated parathyroid hormone Breast cancer Surgical History History of colon resection History of hysterectomy History of modified radical mastectomy of left breast Family History Mother No problems noted. Father No problems noted. Social History Housing: House Alcohol intake: current Alcohol intake frequency: a few times a week Alcohol type: wine Patient Tobacco Use Status: Never used Tobacco service: No Current occupational status: retired Cognitive needs: No Hearing needs: No Vision needs: Yes (rx glasses) Questionnaire PHQ-9 Over the last 2 weeks, how often have you been bothered by any of the following problems? 1. Little interest or pleasure in doing things: not at all 2. Feeling down, depressed, or hopeless: not at all 3. Trouble falling or staying asleep, or sleeping too much: not at all 4. Feeling tired or having little energy: not at all 5. Poor appetite or overeating: not at all 6. Feeling bad about yourself - or that you are a failure or have let yourself or your family down: not at all 7. Trouble concentrating on things, such as reading the newspaper or watching television: not at all 8. Moving or speaking so slowly that other people could have noticed. Or the opposite - being so fidgety or restless that you have been moving around a lot more than usual: not at all 9. Thoughts that you would be better off or of hurting yourself in some way: not at all Total score: 0 Depression Screening Interpretation: Negative Depression Screening Done: Yes 78146 - PHQ-9 Billing: Yes Source: Developed by Drs. Abdelrahman Jay, Shannan Duarte, Agustin Mario and colleagues, with an educational lata from [employer]. Thrive Questionnaire Date Thrive assessed: 12/27/24 I am a: Patient What is your living situation today?: I have a steady place to live Within the past 12 months, did the food you bought not last and you didn't have the money to get more?: Never true Within the past 12 months, did you worry whether your food would run out before you got money to buy more?: Never true Do you have trouble paying for medicines?: No Do you have trouble getting transportation to medical appointments?: No Do you have trouble paying your heating and electricity bill?: No Do you have trouble taking care of your child, family member or friend?: No Do you have trouble with day-to-day activities such as bathing, preparing meals, shopping, managing finances, etc.?: No Are you currently unemployed and looking for a job?: No Are you interested in more education?: No THRIVE Score: 0 AUDIT C Alcohol Use Questionnaire (AUDIT-C) 1. How often do you have a drink containing alcohol?: 4 or more times a week 2. How many drinks containing alcohol do you have on a typical day when you are drinking?: 1 or 2 3. How often do you have six or more drinks on one occasion?: Never Total Score: 4 Score Reviewed/Action Taken: Yes (score reviewed ) LORENZA-7 AMB Questionnaire LORENZA-7 Date LORENZA - 7 assessed: 12/27/24 Feeling nervous, anxious, or on edge: 0 = Not at all Not being able to stop or control worryin = Not at all Worrying too much about different things: 0 = Not at all Trouble relaxin = Not at all Being so restless that it is hard to sit still: 0 = Not at all Becoming easily annoyed or irritable: 0 = Not at all Feeling afraid as if something awful might happen: 0 = Not at all Total LORENZA-7 score (0-4 normal; 5-9 mild; 10-14 moderate; 15-21 severe): 0 Source: Developed by Drs. Abdelrahman Jay, Shannan Duarte, Agustin Mario and colleagues, with an educational lata from [employer]. LORENZA-7 Assessment Billing LORENZA-7 Assessment Tool: LORENZA-7 Assessment 05031 Review of Systems Const Details: - Constitutional: Reports feeling tired. - Cardiovascular: Denies consistently high blood pressure readings at home. All systems reviewed & are unremarkable except as noted in HPI and below Physical exam (Primary Care) Vital Signs: Last Vital Signs Temp 98.0 F 01/11/25 11:06 Pulse 60 01/11/25 11:06 Resp 16 01/11/25 11:06 BP 152/67 H 01/11/25 11:06 Pulse Ox 99 01/11/25 11:06 Oxygen Delivery Method Room Air 01/11/25 11:06 Care Plan Goal for BP management: <140/90 at Goal BMI result Body Mass Index 23.5 Normal BMI Tobacco/Smoking Status: Tobacco use Status Tobacco use date assessed 12/27/24 01/11/25 11:16 Patient Tobacco Use Status Never used Tobacco 01/11/25 11:16 PHQ-9: PHQ-9 Score PHQ-9: Total score 0 01/11/25 11:16 Depression Screening Interpretation: Negative Thrive Assessment: Date of Thrive Assessment Date Thrive assessed 12/27/24 01/11/25 11:16 Const Other: Appearance: Alert. Oriented X3. No acute distress. Head: Normal external exam. Normocephalic. Atraumatic. Eyes: Pupils are equal, round, and reactive to light. Extraocular movements intact. Conjunctiva and sclera normal. Eyelids normal. Throat: Pharynx normal. Uvula midline. Moist mucous membranes. Neck: Normal inspection. Neck supple. Full range of motion. Cardiovascular: Normal heart rate and rhythm. H Respiratory: No respiratory distress. Painless inspiration. Back: Full range of motion noted. Skin: Skin warm and dry. Normal skin color. Extremities: Extremities exhibit normal range of motion. Results Reviewed Results Reviewed: - Home Blood Pressure Monitoring: Patient reports fluctuating readings, including low values such as 111/60 mmHg and 112/70 mmHg, and high values such as 144/78 mmHg and 150 mmHg. - The most recent home reading was 137/62 mmHg. Coding Level of Care Code Est Pt Level 4 (77668) Complex EM visit Add On G2211 Diagnoses Essential hypertension I10 Additional Codes LORENZA-7 Assessment Billing - LORENZA-7 Assessment Tool: LORENZA-7 Assessment 84554 ([id number]) PHQ-9 - 70706 - PHQ-9 Billing: Yes ([id number]) Assessment & Plan Assessment & Plan (1) Essential hypertension: Code(s): I10 - Essential (primary) hypertension Category: Medical Plan: The patient's blood pressure is labile, with a high in-office reading of 157 mmHg, but home logs show both low readings (e.g., 119 mmHg) and high readings (up to 150 mmHg). The recent dose increase of amlodipine to 10 mg two weeks ago may require more time for full effect. Due to the presence of low blood pressure readings, no new medication will be added at this time to avoid hypotension. The plan is to continue the current medication regimen of amlodipine 10 mg, metoprolol 50 mg, and amiodarone 200 mg daily. The patient is advised to continue monitoring her blood pressure at home, preferably at the same time each afternoon when she is relaxed. She was also counseled on watching her salt intake, especially during the holidays. The patient should report if her blood pressure is consistently high, around 145-150 mmHg. A follow-up appointment is scheduled for April, approximately three months from now. Plan Plan Patient was informed and verbally consented to the use of an ambient scribe for clinic note documentation during this visit. 1. Essential Hypertension The patient's blood pressure is labile, with a high in-office reading of 157 mmHg, but home logs show both low readings (e.g., 119 mmHg) and high readings (up to 150 mmHg). The recent dose increase of amlodipine to 10 mg two weeks ago may require more time for full effect. Due to the presence of low blood pressure readings, no new medication will be added at this time to avoid hypotension. The plan is to continue the current medication regimen of amlodipine 10 mg, metoprolol 50 mg, and amiodarone 200 mg daily. The patient is advised to continue monitoring her blood pressure at home, preferably at the same time each afternoon when she is relaxed. She was also counseled on watching her salt intake, especially during the holidays. The patient should report if her blood pressure is consistently high, around 145-150 mmHg. A follow-up appointment is scheduled for April, approximately three months from now. I reviewed the patient's home blood pressure log, noting the fluctuations with both high and low readings. I explained that due to the occasional low readings, I would not be adding a new medication at this time, as it could cause her blood pressure to become too low. We will continue her current regimen of amlodipine 10 mg, metoprolol 50 mg, and amiodarone 200 mg, as the recent increase in amlodipine may still need more time to take full effect. I advised her to keep monitoring her blood pressure at the same time each day when relaxed and to call if readings are consistently 145-150 mmHg. We discussed the importance of limiting salt intake, especially around the holidays. We agreed to reschedule her follow-up appointment from March to April for a three-month check. Patient Instructions: - Continue to take your medications as prescribed: amlodipine 10 mg, metoprolol 50 mg, and amiodarone 200 mg every day. - Keep checking your blood pressure at home. It is best to check it at the same time every day, for instance, in the afternoon when you are relaxed. - Please be mindful of how much salt you eat, as it can raise your blood pressure. This is especially important during the holidays. - Call the office if your blood pressure readings are high every day, around 145 to 150 for the top number. - We have scheduled your next follow-up appointment for April.
[2025-01-11 11:29] VITALS: BP 137/62
== END 2025-01-11 11:30 | disposition home or self-care (01) ==
LOC: HO.HMCSH 10:58
PROVIDERS: PCP Physician Assistant Medical; Visit Provider Physician Assistant Medical
DX: I10 Essential (primary) hypertension (principal)

== ENCOUNTER → 2025-01-11 10:57 | Outpatient (BNVA) | payer MEDICARE, SELFPAY | PROVIDERS: PCP Physician Assistant Medical; Visit Provider Physician Assistant Medical | DX: I10 Essential (primary) hypertension (principal); Z13.31 Encounter for screening for depression | CPT/HCPCS: 96127; 99212 ==

== ENCOUNTER 2025-02-14 10:04 | Outpatient (AMB) | payer MEDICARE, SELFPAY ==
--- NOTE | 2025-02-14 10:09 | A.OFFVIS_ITS ---
Vital Signs 02/14/25 10:12 Height 5 ft 4.5 in Weight 138 lb 0.15 oz BMI 23.3 BP 140/64 H Blood Pressure Location Rt brachial Position Sitting Pulse 66 Pulse Source Monitor Intake Visit Reasons: 4 mth f/up-labs Intake Note: 4 mth f/up-labs Distance Learning Technician Required: No Accompanied by: Self / Same As Patient Allergies propranolol (From Inderal [place]) Allergy (Verified 01/11/25 11:29) Nightmare Atenolol Allergy (Uncoded 01/11/25 11:29) Fatigued Medication List - Last Reconciled 02/14/25 by Lloyd Chacon MD amiodarone 200 mg PO DAILY amlodipine 10 mg PO DAILY apixaban (Eliquis) 5 mg PO BID atorvastatin 10 mg PO DAILY escitalopram oxalate 5 mg PO DAILY levothyroxine 50 mcg PO DAILY lorazepam (Ativan) 1 mg PO BEDTIME PRN metoprolol succinate ER 50 mg PO DAILY pantoprazole 40 mg PO DAILY HPI Comments Details: Pleasant 89 year female who is here for palpitations. She has been experiencing palpitations for few months but there were infrequent and happening 1 time a month. We will last for short period but recently she had an episode which was for approximately 5-6 hours. She felt her heart was racing and she was also feeling pulsations in her neck. She has no chest pain or shortness of breath. She has background of hypertension and hypothyroidism. Her blood pressure in the office is elevated but she is saying that her blood pressure at home is usually low. I have advised her to check her blood pressure and keep a log. Today she returns for follow-up. Again her blood pressure in the office is elevated. Her home readings are anywhere from 110 to 120s in the afternoon by her report. She is taking metoprolol succinate 100 mg daily and hydrochlorothiazide 50 mg daily. She is denying any palpitations. Cardiac event monitor did not show any significant arrhythmia. 11/01/2024: She is here for follow-up. She had Holter monitor in August 2024 which showed episodes of atrial fibrillation. She also had an echocardiogram which showed [id number] mitral valve regurgitation, moderate tricuspid regurgitation, grade 2 diastolic dysfunction with elevated left ventricular filling pressures and severe pulmonary hypertension with mild right atrial pressure elevation. She is denying any significant shortness of breath with activities but does get some palpitations and tachycardia. She is denying any persistent edema, orthopnea or PND. Blood pressure control is good. She is currently on amiodarone and apixaban. She was diagnosed with atrial fibrillation in August 2024 Holter monitor. 02/14/2025: Here for follow-up. She unfortunately had a mechanical fall and hit her forehead. She was seen in the emergency department after that. She is saying that she has some balance problems. She has been using cane for longer walks. Her blood pressure was elevated and it appears her amlodipine was increased by primary care doctor and she is now complaining of some lower extremity edema. This is very mild at this point. [facility] Medical History [facility] discharge follow-up Advanced care planning/counseling discussion DNR (do not resuscitate) (~09/12/24) DNI (do not intubate) (~09/12/24) Abnormal echocardiogram Moderate tricuspid regurgitation Moderate mitral regurgitation Severe pulmonary hypertension Tachycardia Serum calcium elevated Elevated parathyroid hormone Breast cancer Surgical History History of colon resection History of hysterectomy History of modified radical mastectomy of left breast Family History Mother No problems noted. Father No problems noted. Social History Housing: House Alcohol intake: current Alcohol intake frequency: a few times a week Alcohol type: wine Patient Tobacco Use Status: Never used Tobacco service: No Current occupational status: retired Cognitive needs: No Hearing needs: No Vision needs: Yes (rx glasses) Review of Systems Const Denies chills, Denies fatigue, Denies fever(s), Denies frequent falls, Denies weakness, Denies weight gain and Denies weight loss ENT Denies dizziness Card Denies chest pain, Denies leg edema, Denies lightheadedness, Reports palpitations, Denies dyspnea and Denies dyspnea on exertion Resp Denies cough, Denies dyspnea and Denies dyspnea on exertion GI Denies hematochezia Musc Denies abnormal gait, Denies muscle weakness, Denies numbness, Denies radiating pain into limb and Denies tingling Neuro Denies abnormal gait, Denies dizziness, Denies frequent falls, Denies numbness, Denies tingling and Denies weakness Endo Denies fatigue and Reports palpitations Physical Exam Vital Signs: Last Vital Signs Pulse 66 02/14/25 10:12 BP 140/64 H 02/14/25 10:12 BMI result Body Mass Index 23.3 GENERAL APPEARANCE: in no acute distress, pleasant. NECK: no carotid bruit, no jugular venous distention. SKIN: no suspicious lesions, warm and dry. HEART: no murmurs, regular rate and rhythm. LUNGS: clear to auscultation bilaterally. ABDOMEN: soft, nontender. EXTREMITIES: Trace edema. PERIPHERAL PULSES: equal. NEUROLOGIC: No gross deficits, AAO X 3 Office Procedures EKG Details: Sinus rhythm 66 beats per minute, normal axis, septal infarct, QTC 434 milliseconds. [id number], Complete Assessment & Plan Assessment & Plan (1) Essential hypertension: Code(s): I10 - Essential (primary) hypertension Category: Medical (2) Paroxysmal atrial fibrillation: Code(s): I48.0 - Paroxysmal atrial fibrillation Category: Medical (3) Moderate mitral regurgitation: Code(s): I34.0 - Nonrheumatic mitral (valve) insufficiency Category: Medical (4) Severe pulmonary hypertension: Code(s): I27.20 - Pulmonary hypertension, unspecified Category: Medical Plan Pleasant 89 year lady who is here for follow-up. She has history of severe pulmonary hypertension, moderate mitral valve regurgitation, paroxysmal atrial fibrillation and hypertension. Clinically not in heart failure. Blood pressure control is okay. She has trace edema in the lower extremities which I think is related to amlodipine. She is on amiodarone for atrial fibrillation. She is in sinus rhythm at this point. We will do monitoring labs. I will also check CBC and iron studies to make sure she does not have any iron-deficiency because she is complaining of some increasing fatigue. Clinically appears euvolemic. She will see us back in few months. We will follow up on blood workup. Thank you for allowing me to participate in the care of your patient. Please feel free to contact me if you have any questions. Orders: Orders Liver Panel Today I27.20 - Pulmonary hypertension, unspecified, I48.0 - Paroxysmal atrial fibrillation Complete Blood Count no Diff Today I27.20 - Pulmonary hypertension, unspecified, I48.0 - Paroxysmal atrial fibrillation Ferritin Today I27.20 - Pulmonary hypertension, unspecified, I48.0 - Paroxysmal atrial fibrillation IRON PROFILE Today I27.20 - Pulmonary hypertension, unspecified, I48.0 - Paroxysmal atrial fibrillation Basic Metabolic Panel Today I27.20 - Pulmonary hypertension, unspecified, I48.0 - Paroxysmal atrial fibrillation TSH reflex Free T4 Today I27.20 - Pulmonary hypertension, unspecified, I48.0 - Paroxysmal atrial fibrillation Coding Level of Care Code Est Pt Level 4 (16736) Diagnoses Essential hypertension I10 Paroxysmal atrial fibrillation I48.0 Moderate mitral regurgitation I34.0 Severe pulmonary hypertension I27.20 CPT Codes EKG - CPT: 88212-[id number], Complete ([id number])
[2025-02-14 10:12] VITALS: BP 140/64; PULSE 66; BMI 23.3
== END 2025-02-14 10:37 | disposition home or self-care (01) ==
LOC: HO.HCS 10:05
PROVIDERS: PCP Physician Assistant Medical; Visit Provider Internal Medicine Cardiovascular Disease
DX: I10 Essential (primary) hypertension (principal); I48.0 Paroxysmal atrial fibrillation; I34.0 Nonrheumatic mitral (valve) insufficiency; I27.20 Pulmonary hypertension, unspecified
CPT/HCPCS: 93010; 99214

== ENCOUNTER 2025-02-14 10:04 | Outpatient (REF) | payer MEDICARE, SELFPAY ==
--- NOTE | ~2025-02-14 | XR_ITS ---
EXAMINATION: XR CHEST 2 VIEWS HISTORY: Z51.81 - Encounter for therapeutic drug level monitoring COMPARISON: Comparison is made with the prior examination dated 05/23/2015. FINDINGS: PA and lateral views of the chest are submitted. The lungs are expanded and clear. There is no pleural effusion, pneumothorax, or pulmonary vascular congestion. The heart is normal in size. There is degenerative disc disease of the spine. Again seen are calcifications of the left chest wall. XR/XR chest 2V IMPRESSION: No acute cardiopulmonary abnormality. Electronically signed by: Abdelrahman Licona MD 02/14/2025 11:30 AM EST
[2025-02-14 11:52] LABS: Hematocrit 45.0 % (37.0-47.0); Hemoglobin 14.2 g/dl (12.0-16.0); Mean Corpuscular HGB Conc 31.6 g/dl (31.0-35.0); Mean Corpuscular Hemoglobin 28.3 pg (27.0-33.0); Mean Corpuscular Volume 89.8 fL (80.0-98.0); NRBC Abs Auto 0.000 X10*3/uL (0.0-0.012); NRBC Pct Auto 0.0 /100WBC (0.0-0.2); Platelet Count 189 X10*3/uL (160-400); Red Blood Count 5.01 X10*6/uL (4.20-5.50); White Blood Count 6.8 X10*3/uL (4.8-10.8)
[2025-02-14 12:59] LABS: Alanine Aminotransferase 39 U/L (0-31); Albumin Level 4.9 g/dL (3.5-5.0); Alkaline Phosphatase 103 U/L (39-117); Anion Gap 11 (12-20); Aspartate Amino Transferase 35 U/L (5-31); Blood Urea Nitrogen 24 mg/dL (9-16); Calcium 10.5 mg/dL (8.4-10.2); Carbon Dioxide 32 mmol/L (22-29); Chloride 101 mmol/L (96-108); Estimated Glomerular Filt Rate > 60; Iron 110 mcg/dL (30-160); Percent Iron Saturation 38 % (15-50); Potassium 4.8 mmol/L (3.3-5.1); Sodium 139 mmol/L (135-145); Total Iron Binding Capacity 287 mcg/dL (228-428); Total Protein 7.4 g/dL (6.5-8.0); Unsaturated Iron Binding 177 ug/dL
[2025-02-14 13:17] LABS: Ferritin 138 ng/mL (10-250)
[2025-02-14 14:30] LABS: Free T4 (Free Thyroxine) 1.24 ng/dL (0.71-1.85)
== END 2025-02-14 10:05 | disposition home or self-care (01) ==
LOC: HO.LAB 10:04
PROVIDERS: PCP Physician Assistant Medical; Visit Provider Internal Medicine Cardiovascular Disease
DX: I48.0 Paroxysmal atrial fibrillation (principal); I10 Essential (primary) hypertension; I34.0 Nonrheumatic mitral (valve) insufficiency; I27.20 Pulmonary hypertension, unspecified
CPT/HCPCS: 36415; 71046; 80048; 80076; 82728; 83540; 84439; 84443; 85027; 93005; 99212

== ENCOUNTER → 2025-02-14 11:02 | Outpatient (BNV) | payer MEDICARE, SELFPAY | PROVIDERS: PCP Physician Assistant Medical; Visit Provider Radiology Diagnostic Radiology | DX: Z51.81 Encounter for therapeutic drug level monitoring (principal) | CPT/HCPCS: 71046 ==